=== PATIENT | male | born 1955 | race Caucasian/White ===

== ENCOUNTER → 2018-02-16 | Outpatient (CLI) | payer OTHER ==
[~2018-02-16] MED LIST: AGM875T PO; AMLO5TAB7 PO; ASPI-983 PO; CLOP75TA28 PO; FLT05NA16 NSEACH; LISI-552 PO; MECL-124 PO; METF750T2 PO; METO-370 PO; SIMV20TA3 PO; metformin; pravastatin
== END ==
LOC: CARD 08:33
PROVIDERS: ATTEND Internal Medicine Cardiovascular Disease
DX: R07.89 Other chest pain (principal); I10 Essential (primary) hypertension; E78.5 Hyperlipidemia, unspecified; Z72.0 Tobacco use
CPT/HCPCS: 93306

== ENCOUNTER → 2018-02-17 | Outpatient (CLI) | payer OTHER ==
[~2018-02-17] MED LIST changes: +CATHETER FLUSH 10 ML SYR IV PRN; +REGADENOSON 0.4 MG/5 ML SYR (LEXISCAN) IV ONE
[2018-02-17 13:27] VITALS: BP 160/72
[2018-02-17 13:44] VITALS: BP 156/79
--- NOTE | 2018-02-17 19:09 | STRESS TEST ---
DATE OF SERVICE: 02/17/2018 LEXISCAN MYOVIEW STRESS TEST REPORT Baseline heart rate is 65, baseline blood pressure 145/73. Baseline EKG is sinus rhythm with no ischemic changes. In summary, the patient was injected with 10.96 mCi of technetium-99 Myoview and the resting images were obtained. Then, the patient started exercising with a baseline heart rate, blood pressure and EKG mentioned above. The patient exercised for 5 minutes and 30 seconds on standard Jacques protocol, did not reach his target heart rate. With peak exercise level, EKG was showing nondiagnostic changes, blood pressure was 173/75. During recovery, there were no EKG changes. The patient was converted to Lexiscan Myoview stress test, received 0.4 mg of Lexiscan followed by 30.6 mCi of technetium-99 Myoview. Throughout the test, there were no EKG changes. The resting and stress images were reviewed and compared in the short axis, horizontal long axis, and vertical long axis views. Review of the images showed reversible ischemia involving the whole inferior wall, inferolateral wall and inferoseptum. SSS is 13, SDS 11, TID value 1.02. On the gated images, the left ventricle appeared to be in normal size with normal contractility. Calculated ejection fraction 55%. CONCLUSION: 1. The patient was unable to exercise beyond 5 minutes and 30 seconds on Jacques protocol, did not achieve his target heart rate. Test was converted to Lexiscan Myoview stress test. 2. Minimal nondiagnostic EKG changes with exercise returned to baseline during recovery. 3. Diaphragmatic attenuation with reversible ischemia involving the whole inferior wall, inferolateral wall and inferoseptum. 4. Normal left ventricular size with normal contractility. Calculated ejection fraction 55%. Job ID: [id number] DocumentID: [id number] Dictated Date: 02/17/2018 15:51:51 Aeronautical Drafter Date: 02/17/2018 19:09:08 Dictated By: SHIVA BOYLE MD
== END ==
LOC: CARD 11:41
PROVIDERS: ATTEND Internal Medicine Cardiovascular Disease
DX: R07.9 Chest pain, unspecified (principal)
CPT/HCPCS: 78452; 93017

== ENCOUNTER 2018-03-03 06:36 | Day surgery (SDC) | payer OTHER ==
[~2018-03-03] VITALS: Ht 185.4 cm; Wt 108.9 kg
[~2018-03-03 06:36] MED LIST changes: -AMLO5TAB7 PO; -ASPI-983 PO; -CATHETER FLUSH 10 ML SYR IV PRN; -CLOP75TA28 PO; -LISI-552 PO; -METF750T2 PO; -METO-370 PO; -REGADENOSON 0.4 MG/5 ML SYR (LEXISCAN) IV ONE; -SIMV20TA3 PO
--- OUTSIDE RECORDS SUMMARY | 2018-03-03 06:41 | XMS REPORT ---
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 Active [id number] Problem HTN (hypertension) I10 Active 52550693 ALLERGIES No Information ENCOUNTERS Encounter Location Date Diagnosis [facility] [id number] [place] [address] 44570- 3548 Apr, [facility] [id number] [place] [address] 29584- 8515 Jan, Chest discomfort R07.89 ; HTN (hypertension) I10 ; Hyperlipidemia, unspecified hyperlipidemia type E78.5 and Tobacco use Z72.0 [facility] [id number] [place] [address] 40411- 2922 Jan, [facility] [id number] [place] [address] 68527- 5264 Nov, Hypercholesteremia E78.0 [facility] [id number] [place] [address] 92140 -4049 Nov, Chest discomfort R07.89 and Sinus congestion R09.81 [facility] [id number] [place] [address] 71806- 5819 Nov, 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 [facility] [address] [address]- 2684 Jun, 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 ; HTN (hypertension) I10 ; Depression, unspecified depression type F32.9 and Hypercholesteremia E78.0 [place] [address], [place] [address] 6[address] Mar, Recurrent major depressive disorder, in partial remission F33.41 ; Hypercholesteremia E78.0 ; Insomnia G47.00 ; HTN (hypertension) I10 and 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 [place] [address] [place] [address] 35214- 4578 Feb, HTN (hypertension) I10 and 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 [place] [id number] [place] [address] 99066- 9438 Jan, Hypercholesteremia E78.0 ; 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 and HTN (hypertension) I10 [place] [address] [place] [address] 23527- 5590 Jan, [place] [id number] [place] [address] 25985- 6429 October, 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 ; HTN (hypertension) I10 ; Hypercholesteremia E78.0 and Insomnia G47.00 [place] [address] [address]- 6338 Sep, [place] [id number] [place] [address] 76186- 1980 Jun, 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 ; HTN (hypertension) I10 ; Insomnia G47.00 ; Hypercholesteremia E78.0 and Depression, unspecified depression type F32.9 [place] [address] [address]- 7867 Apr, [place] [id number] [place] [address] 34106- 0330 Dec, 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 [place] [id number] [place] [address] 01209- 6037 Dec, [facility] [id number] [place] [address] 80258- 6701 Dec, 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 ; HTN (hypertension) I10 ; Insomnia G47.00 ; Hypercholesteremia E78.0 and Depression, unspecified depression type F32.9 [place] [id number] [place] [address] 85146- 4328 Sep, Sinusitis J32.9 [place] [id number] [place] [address] 45919- 2674 Aug, [place] [id number] [place] [address] 47537- 4636 May, [place] [id number] [place] [address] 28492- 1065 May, [place] [id number] [place] [address] 13745- 7102 May, HTN (hypertension) I10 ; Insomnia G47.00 ; 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 and Hypercholesteremia E78.0 [place] [id number] [place] [address] 15651- 3609 Apr, [place] [id number] [place] [address] 34568- 2266 Dec, Diabetes mellitus without mention of complication, type II or unspecified type, not stated as uncontrolled 250.00 ; Essential hypertension , benign 401.1 ; Insomnia, unspecified 780.52 and Leg pain 729.5 [place] [address] [place] [address] 34257- 8413 Sep, [place] [id number] [place] [address] 66046- 9827 Sep, [facility] [place] [facility] [address] [id number] [place] [address]- 0365 Jul, [facility] [place] [facility] [address] [id number] [place] [address]- 0446 Jul, [facility] [place] [facility] [address] [facility] [id number] [place] [address]- 0936 Jul, [facility] [place] [facility] [address] [id number] [place] [address]- 2948 Jul, [facility] [place] [facility] [address] [id number] [place] [address]- 9483 Jun, [facility] [place] [facility] [address] [id number] [place] [address]- 6168 Jun, [facility] [place] [facility] [address] [id number] [place] [address]- 6470 Jun, [facility] [place] [facility] [address] [id number] [place] [address]- 7182 Jun, [facility] [place] [facility] [address] [id number] [place] [address]- 9293 May, [facility] [place] [facility] [address] [id number] [place] [address]- 7853 May, [facility] [place] [facility] [address] [facility] [id number] [place] [address]- 1509 May, [facility] [place] [facility] [address] [id number] [place] [address]- 1219 May, [facility] [place] [facility] [address] [id number] [place] [address]- 1831 Apr, [facility] [place] [facility] [address] [facility] [id number] [place] [address]- 0687 Apr, [facility] [place] [facility] [address] [facility] [id number] [place] [address]- 3804 Mar, [facility] [place] [facility] [address] [id number] [place] [address]- 9885 Mar, [facility] [place] [facility] [address] [id number] [place] [address]- 2323 Mar, [facility] [place] [facility] [address] [id number] [place] [address]- 8049 Mar, [facility] [place] [facility] [address] [id number] [place] [address]- 3571 Feb, [facility] [place] [facility] [address] [id number] [place] [address]- 5932 Feb, [facility] [place] [facility] [address] [id number] [place] [address]- 1425 Jan, [facility] [place] [facility] [address] [id number] [place] [address]- 3639 Jan, [facility] [place] [facility] [address] [id number] [place] [address]- 3648 Jan, [facility] [place] [facility] [address] [id number] [place] [address]- 6223 Jan, [facility] [place] [facility] [address] [id number] [place] [address]- 7183 Dec, [facility] [place] [facility] [address] [id number] [place] [address]- 3571 Dec, [facility] [place] [facility] [address] [id number] [place] [address]- 2173 Dec, [facility] [place] [facility] [address] [id number] [place] [address]- 0881 Dec, [facility] [place] [facility] [address] [id number] [place] [address]- 0769 Dec, [facility] [place] [facility] [address] [id number] [place] [address]- 5327 Dec, [facility] [place] [facility] [address] [id number] [place] [address]- 8647 Dec, [facility] [place] [facility] [address] [id number] [place] [address]- 6072 Dec, [facility] [place] [facility] [address] [id number] [place] [address]- 9187 Nov, [facility] [place] [facility] [address] [id number] [place] [address]- 4910 Nov, [facility] [place] [facility] [address] [id number] [place] [address]- 9950 Nov, [facility] [place] [facility] [address] [id number] [place] [address]- 3856 Nov, [facility] [place] [facility] [address] [id number] [place] [address]- 2328 Sep, [facility] [place] [facility] [address] [facility] [id number] [place] [address]- 5451 Sep, [facility] [place] [facility] [address] [id number] [place] [address]- 9389 Jul, [facility] [place] [facility] [address] [id number] [place] [address]- 1021 Jul, [facility] [place] [facility] [address] [facility] [id number] [place] [address]- 4789 Jul, [facility] [place] [facility] [address] [id number] [place] [address]- 2878 Jul, [facility] [place] [facility] [address] [id number] [address]- 8086 Jul, [facility] [place] [facility] [address] [id number] [place] 2415 Jul, [facility] [place] [facility] [address] [id number] [place] 0416 Jul, [facility] [place] [facility] [address] [facility] [id number] [place] [address]- 1433 Jul, [facility] [place] [facility] [id number] [address]- 3336 Jul, [facility] [id number] [address]- 0446 Jul, [facility] [address], [place] [address]- 5903 Jun, [facility] [id number] [address]- 7636 Jun, [facility] [address], [place] [address]- 1479 Jun, [facility] [address], [place] [address]- 6990 Jun, [facility] [address], [place] [address]- 1465 Mar, [facility] [id number] [address]- 1597 Mar, IMMUNIZATIONS No Known Immunizations SOCIAL HISTORY Never Assessed REASON FOR VISIT Lab (walk-in) PLAN OF CARE VITAL SIGNS MEDICATIONS Unknown Medications RESULTS No Results PROCEDURES Procedure Date Ordered Result Body Site LIPID PANEL December 07, 2017 COMPREHEN METABOLIC PANEL December 07, 2017 INSTRUCTIONS MEDICATIONS ADMINISTERED No Known Medications MEDICAL (GENERAL) HISTORY Type Description Date Medical History hypertension Medical History pre-diabetic Medical History hyperlipidemia Hospitalization History pneumonia age 20
--- OUTSIDE RECORDS SUMMARY | 2018-03-03 06:41 | XMS REPORT ---
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 Active 20874260325488 Problem HTN (hypertension) I10 Active 71968707 ALLERGIES No Information ENCOUNTERS Encounter Location Date Diagnosis [facility] [id number] [place] [address] 99591- 6690 Apr, [facility] [id number] [place] [address] 37072- 2243 Jan, Chest discomfort R07.89 ; HTN (hypertension) I10 ; Hyperlipidemia, unspecified hyperlipidemia type E78.5 and Tobacco use Z72.0 [facility] [id number] [place] [address] 18641- 6731 Jan, [facility] [id number] [place] [address] 83267- 2084 Nov, Hypercholesteremia E78.0 [facility] [id number] [place] [address] 72826 -8553 Nov, Chest discomfort R07.89 and Sinus congestion R09.81 [facility] [id number] [place] [address] 14193- 2450 Nov, 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 [facility] [address] 53410- 0583 Jun, 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 ; HTN (hypertension) I10 ; Depression, unspecified depression type F32.9 and Hypercholesteremia E78.0 [place] [address], [place] [address]- 9136 Mar, Recurrent major depressive disorder, in partial remission F33.41 ; Hypercholesteremia E78.0 ; Insomnia G47.00 ; HTN (hypertension) I10 and 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 [place] [address] [place] [address] 08995- 8548 Feb, HTN (hypertension) I10 and 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 [place] [id number] [place] [address] 96138- 1918 Jan, Hypercholesteremia E78.0 ; 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 and HTN (hypertension) I10 [place] [address] [place] [address] 65653- 3707 Jan, [place] [id number] [place] [address] 38426- 1767 October, 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 ; HTN (hypertension) I10 ; Hypercholesteremia E78.0 and Insomnia G47.00 [place] [address], [place] [address]- 5587 Sep, [place] [id number] [place] [address] 28618- 0795 Jun, 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 ; HTN (hypertension) I10 ; Insomnia G47.00 ; Hypercholesteremia E78.0 and Depression, unspecified depression type F32.9 [place] [address], [place] [address]- 1927 Apr, [place] [id number] [place] [address] 55432- 1691 Dec, 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 [place] [id number] [place] [address] 37657- 7634 Dec, [facility] [id number] [place] [address] 33223- 9315 Dec, 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 ; HTN (hypertension) I10 ; Insomnia G47.00 ; Hypercholesteremia E78.0 and Depression, unspecified depression type F32.9 [place] [id number] [place] [address] 06418- 3827 Sep, Sinusitis J32.9 [place] [id number] [place] [address] 10946- 5710 Aug, [place] [id number] [place] [address] 79136- 2108 May, [place] [id number] [place] [address] 15722- 2467 May, [place] [id number] [place] [address] 68426- 4919 May, HTN (hypertension) I10 ; Insomnia G47.00 ; 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 and Hypercholesteremia E78.0 [place] [id number] [place] [address] 97179- 8553 Apr, [place] [id number] [place] [address] 69916- 3800 Dec, Diabetes mellitus without mention of complication, type II or unspecified type, not stated as uncontrolled 250.00 ; Essential hypertension , benign 401.1 ; Insomnia, unspecified 780.52 and Leg pain 729.5 [place] [address] [place] [address] 86168- 0860 Sep, [place] [id number] [place] [address] 35320- 9586 Sep, [facility] [place] [facility] [address] [id number] [place] [address]- 1623 Jul, [facility] [place] [facility] [address] [id number] [place] [address]- 1256 Jul, [facility] [place] [facility] [address] [facility] [id number] [place] [address]- 4716 Jul, [facility] [place] [facility] [address] [id number] [place] [address]- 5988 Jul, [facility] [place] [facility] [address] [id number] [place] [address]- 1561 Jun, [facility] [place] [facility] [address] [id number] [place] [address]- 2157 Jun, [facility] [place] [facility] [address] [id number] [place] [address]- 8253 Jun, [facility] [place] [facility] [address] [id number] [place] [address]- 4938 Jun, [facility] [place] [facility] [address] [id number] [place] [address]- 7722 May, [facility] [place] [facility] [address] [id number] [place] [address]- 0970 May, [facility] [place] [facility] [address] [facility] [id number] [place] [address]- 2676 May, [facility] [place] [facility] [address] [id number] [place] [address]- 1376 May, [facility] [place] [facility] [address] [id number] [place] [address]- 3113 Apr, [facility] [place] [facility] [address] [facility] [id number] [place] [address]- 5025 Apr, [facility] [place] [facility] [address] [facility] [id number] [place] [address]- 9288 Mar, [facility] [place] [facility] [address] [id number] [place] [address]- 7976 Mar, [facility] [place] [facility] [address] [id number] [place] [address]- 4012 Mar, [facility] [place] [facility] [address] [id number] [place] [address]- 5136 Mar, [facility] [place] [facility] [address] [id number] [place] [address]- 9232 Feb, [facility] [place] [facility] [address] [id number] [place] [address]- 4529 Feb, [facility] [place] [facility] [address] [id number] [place] [address]- 0750 Jan, [facility] [place] [facility] [address] [id number] [place] [address]- 9056 Jan, [facility] [place] [facility] [address] [id number] [place] [address]- 1556 Jan, [facility] [place] [facility] [address] [id number] [place] [address]- 0411 Jan, [facility] [place] [facility] [address] [id number] [place] [address]- 8147 Dec, [facility] [place] [facility] [address] [id number] [place] [address]- 7445 Dec, [facility] [place] [facility] [address] [id number] [place] [address]- 6619 Dec, [facility] [place] [facility] [address] [id number] [place] [address]- 9715 Dec, [facility] [place] [facility] [address] [id number] [place] [address]- 4526 Dec, [facility] [place] [facility] [address] [id number] [place] [address]- 5228 Dec, [facility] [place] [facility] [address] [id number] [place] [address]- 1965 Dec, [facility] [place] [facility] [address] [id number] [place] [address]- 4185 Dec, [facility] [place] [facility] [address] [id number] [place] [address]- 2109 Nov, [facility] [place] [facility] [address] [id number] [place] [address]- 8681 Nov, [facility] [place] [facility] [address] [id number] [place] [address]- 6385 Nov, [facility] [place] [facility] [address] [id number] [place] [address]- 9561 Nov, [facility] [place] [facility] [address] [id number] [place] [address]- 7276 Sep, [facility] [place] [facility] [address] [facility] [id number] [place] [address]- 6723 Sep, [facility] [place] [facility] [address] [id number] [place] [address]- 3463 Jul, [facility] [place] [facility] [address] [id number] [place] [address]- 2682 Jul, [facility] [place] [facility] [address] [facility] [id number] [place] [address] Jul, [facility] [place] [facility] [address] [id number] [place] [address] Jul, [facility] [place] [facility] [address] [id number] [address] Jul, [facility] [place] [facility] [address] [id number] [place] [address] Jul, [facility] [place] [facility] [address] [id number] [place] [address] Jul, [facility] [place] [facility] [address] [facility] [id number] [place] [address] Jul, [facility] [place] [facility] [address] [id number] [address] Jul, [facility] [address] [id number] [address] Jul, [facility] [id number] [address] Jun, [facility] [id number], [place] [address] Jun, [facility] [id number], [place] [address] Jun, [facility] [id number], [place] [address] Jun, [facility] [id number], [place] [address] Mar, [facility] [id number], [place] [address] Mar, IMMUNIZATIONS No Known Immunizations SOCIAL HISTORY Never Assessed REASON FOR VISIT Repository Medication PLAN OF CARE VITAL SIGNS MEDICATIONS Medication Instructions Dosage Frequency Start Date End Date Duration Status Amlodipine Besylate 5 mg Orally Once a day 1 tablet 24h Jun, Active RESULTS No Results PROCEDURES No Known procedures INSTRUCTIONS MEDICATIONS ADMINISTERED No Known Medications MEDICAL (GENERAL) HISTORY Type Description Date Medical History hypertension Medical History pre-diabetic Medical History hyperlipidemia Hospitalization History pneumonia age 20
--- OUTSIDE RECORDS SUMMARY | 2018-03-03 06:42 | XMS REPORT ---
Author Author RAVINDRA CHAUHAN Organization [employer] Address Unknown Phone Unavailable Care Team Providers Care Medical Administrative Technician Name Role Phone RAVINDRA CHAUHAN Unavailable Allergies No Known Allergies Problems Problem Type Condition Code Onset Dates Condition Status Problem Pain in joint, site unspecified 719.40 Active Problem Lumbago 724.2 Active Problem Insomnia, unspecified 780.52 Active Problem Dizziness and giddiness 780.4 Active Problem Acute sinusitis, unspecified 461.9 Active Problem Leg pain 729.5 Active Problem Essential hypertension, benign 401.1 Active Problem Other and unspecified hyperlipidemia 272.4 Active Problem Pain in joint, ankle and foot 719.47 Active Problem Diabetes mellitus without mention of complication, type II or unspecified type, not stated as uncontrolled 250.00 Active Medications Medication Code System Code Instructions Start Date End Date Status Dosage Lisinopril [facility] [address]-80 20 MG Orally Once a day 1 tablet Metformin HCl [facility] [address]-33 500 MG Orally Once a day Apr 17, 2015 1 tablet with meals Results No Known Results Summary Purpose eClinicalWorks Submission
--- OUTSIDE RECORDS SUMMARY | 2018-03-03 06:42 | XMS REPORT ---
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 Active 68976542816971 Problem HTN (hypertension) I10 Active 15449557 Problem Hypercholesteremia E78.0 Active 564610910 ALLERGIES No Information ENCOUNTERS Encounter Location Date Diagnosis [facility] [address] [address] Jan, [facility] [id number] [place] [address] Jan, [facility] [address] [address] Nov, Hypercholesteremia E78.0 [facility] [id number] [place] [address] Nov, Chest discomfort R07.89 and Sinus congestion R09.81 [facility] [id number] [place] [address] Nov, 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 [facility] [address] [address] Jun, 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 ; HTN (hypertension) I10 ; Depression, unspecified depression type F32.9 and Hypercholesteremia E78.0 [facility] [address] [address] Mar, Recurrent major depressive disorder, in partial remission F33.41 ; Hypercholesteremia E78.0 ; Insomnia G47.00 ; HTN (hypertension) I10 and 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 [facility] [id number] [place] [address] Feb, HTN (hypertension) I10 and 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 [facility] [id number] [place] [address] 6[address] Jan, Hypercholesteremia E78.0 ; 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 and HTN (hypertension) I10 [facility] [id number] [place] [address]- [address] Jan, [facility] [id number] [place] [address] October, 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 ; HTN (hypertension) I10 ; Hypercholesteremia E78.0 and Insomnia G47.00 [facility] [id number] [place] [address]- [address] Sep, [facility] [id number] [place] [address]- 1426 Jun, 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 ; HTN (hypertension) I10 ; Insomnia G47.00 ; Hypercholesteremia E78.0 and Depression, unspecified depression type F32.9 [facility] [id number] [place] [address]- [address] Apr, [facility] [id number] [place] [address]- 8[address] Dec, 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 [facility] [id number] [place] [address]- 18[address] Dec, [facility] [id number] [place] [address]- [address] Dec, 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 ; HTN (hypertension) I10 ; Insomnia G47.00 ; Hypercholesteremia E78.0 and Depression, unspecified depression type F32.9 [facility] [id number] [place] [address]- 4431 Sep, Sinusitis J32.9 [facility] [address] [address] Aug, [facility] [id number] [place] [address]- [address] May, [place] [facility] [address] [address] May, [facility] [address] [address] May, HTN (hypertension) I10 ; Insomnia G47.00 ; 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 and Hypercholesteremia E78.0 [facility] [id number] [place] [address]- [address] Apr, [facility] [address] [address] Dec, Diabetes mellitus without mention of complication, type II or unspecified type, not stated as uncontrolled 250.00 ; Essential hypertension , benign 401.1 ; Insomnia, unspecified 780.52 and Leg pain 729.5 [facility] [id number] [place] [address]43- [address] Sep, [facility] [id number] [place] [address] 264[address]- [address] Sep, [facility] [id number] [place] [address] 13698- 5[address] Jul, [facility] [id number] [place] [address] 590[address]- [address]99 Jul, [facility] [address] [facility] [id number] [place] [address] 10 Jul, 2014 [facility] [place] [facility] [address] [id number] [place] [address] Jul, 2014 [facility] [place] [facility] [address] [id number] [place] [address]- [address] Jun, [facility] [place] [facility] [address] [id number] [place] [address]- [address] Jun, [facility] [place] [facility] [address] [id number] [place] [address]- 1589 Jun, [facility] [place] [facility] [address] [id number] [place] [address]- 74[address] Jun, [facility] [place] [facility] [address] [id number] [place] [address]- 3479 May, [facility] [place] [facility] [address] [id number] [place] [address]- 8458 May, [facility] [place] [facility] [address] [id number] [place] [address]- 49[address] May, [facility] [place] [facility] [address] [id number] [place] [address]- [address] May, [facility] [place] [facility] [address] [id number] [place] [address]- 5[address] Apr, [facility] [place] [facility] [address] [id number] [place] [address]- 2436 Apr, [facility] [place] [facility] [address] [id number] [place] [address]- 11[address] Mar, [facility] [place] [facility] [address] [id number] [place] [address]- 2869 Mar, [facility] [place] [facility] [address] [id number] [place] [address]- 0592 Mar, [facility] [place] [facility] [address] [id number] [place] [address]- 8563 Mar, [facility] [place] [facility] [address] [id number] [place] [address]- 0890 Feb, [facility] [place] [facility] [address] [id number] [place] [address]- 5240 Feb, [facility] [place] [facility] [address] [id number] [place] [address]- 6478 Jan, [facility] [place] [facility] [address] [id number] [place] [address]- 6661 Jan, [facility] [place] [facility] [address] [id number] [place] [address]- 8086 Jan, [facility] [place] [facility] [address] [id number] [place] [address]- 2970 Jan, [facility] [place] [facility] [address] [id number] [place] [address]- 8099 Dec, [facility] [place] [facility] [address] [id number] [place] [address]- 3893 Dec, [facility] [place] [facility] [address] [id number] [place] [address]- 2887 Dec, [facility] [place] [facility] [address] [id number] [place] [address]- 7852 Dec, [facility] [place] [facility] [address] [id number] [place] [address]- 1696 Dec, [facility] [place] [facility] [address] [id number] [place] [address]- 4268 Dec, [facility] [place] [facility] [address] [id number] [place] [address]- 5601 Dec, [facility] [place] [facility] [address] [id number] [place] [address]- 8086 Dec, [facility] [place] [facility] [address] [id number] [place] [address]- 7377 Nov, [facility] [place] [facility] [address] [id number] [place] [address]- 7770 Nov, [facility] [place] [facility] [address] [id number] [place] [address]- 5499 Nov, [facility] [place] [facility] [address] [id number] [place] [address]- 8762 Nov, [facility] [place] [facility] [address] [id number] [place] [address]- 0397 Sep, [facility] [place] [facility] [address] [id number] [place] [address]- 7039 Sep, [facility] [place] [facility] [address] [id number] [place] [address]- 4393 Jul, [facility] [place] [facility] [address] [facility] [id number] [place] [address]- 4749 Jul, [facility] [place] [facility] [address] [facility] [id number] [place] [address]- 4459 Jul, [facility] [place] [facility] [address] [facility] [id number] [place] [address]- 0[address] Jul, [facility] [place] [facility] [address] [facility] [id number] [place] [address]- 9827 Jul, [facility] [place] [facility] [address] [facility] [id number] [place] [address]- 6460 Jul, [facility] [place] [facility] [address] [facility] [id number] [place] [address]- 3181 Jul, [facility] [place] [facility] [address] [facility] [id number] [place] [address]- 7067 Jul, [facility] [place] [facility] [address] [id number] [place] [address]- 9550 Jul, [facility] [place] [facility] [address] [facility] [id number] [place] [address]- 1221 Jul, [facility] [place] [facility] [address] [facility] [id number] [place] [address]- 1897 Jun, [facility] [address] [facility] [id number] [place] [address]- 9727 Jun, [facility] [id number] [place] [address]- 2266 Jun, [facility] [address] [facility] [id number] [place] [address]- 0216 Jun, [facility] [address] [facility] [id number] [place] [address]- 8366 Mar, [facility] [address] [facility] [id number] [place] [address]- [address] Mar, IMMUNIZATIONS No Known Immunizations SOCIAL HISTORY Never Assessed REASON FOR VISIT Repository Medication PLAN OF CARE VITAL SIGNS MEDICATIONS Medication Instructions Dosage Frequency Start Date End Date Duration Status MetFORMIN HCl ER 750 MG Orally Once a day 1 tablet with evening meal 24h Mar, 90 days Active RESULTS No Results PROCEDURES No Known procedures INSTRUCTIONS MEDICATIONS ADMINISTERED No Known Medications MEDICAL (GENERAL) HISTORY Type Description Date Medical History hypertension Medical History pre-diabetic Medical History hyperlipidemia Hospitalization History pneumonia age 20
--- OUTSIDE RECORDS SUMMARY | 2018-03-03 06:42 | XMS REPORT ---
Author RAVINDRA [facility]seca [facility] eClinicalWorks Address Unknown Phone Unavailable Care Team Providers Care Alarm Signal Operator Name Role Phone RAVINDRA CHAUHAN CP Unavailable Allergies, Adverse Reactions, Alerts Substance Reaction Event Type N.K.D.A. 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 Active Assessment HTN (hypertension) I10 Active Problem Insomnia G47.00 Active Problem Hypercholesteremia E78.0 Active Medications Medication Code System Code Instructions Start Date End Date Status Dosage Simvastatin [facility] [address]-96 20 mg Orally Once a day 1 tablet in the evening Amlodipine Besylate [facility] [address]-10 5 mg Orally, please voucher Once a day 1 tablet Metformin HCl [facility] 05470813794 500 MG Orally Once a day 1 tablet with meals Simvastatin [facility] [address]-65 10 MG Orally Once a day 1 tablet in the evening Lisinopril [facility] [address]-90 20 mg Orally Once a day 1 tablet Ambien [facility] [address]-12 10 MG Orally Once a day May 17, 2015 1 tablet at bedtime as needed Procedures Procedure Coding System Code Date GLYCATED HEMOGLOBIN TEST CPT-4 84269 December 27, 2015 Office Visit, Est Pt., Level 4 CPT-4 52459 December 27, 2015 Vital Signs Date/Time: December 27, 2015 Blood Pressure Systolic 146 mmHg Cardiac Monitoring Heart Rate 82 bpm Height 73 in Blood Pressure Diastolic 80 mmHg Results No Known Results Summary Purpose eClinicalWorks Submission
--- OUTSIDE RECORDS SUMMARY | 2018-03-03 06:42 | XMS REPORT ---
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 Active 80749197526685 Problem HTN (hypertension) I10 Active 19237954 ALLERGIES No Known Allergies SOCIAL HISTORY Never Assessed PLAN OF CARE Activity Details Follow Up 3 Months Reason:dm htn, insomnia VITAL SIGNS Height 73 in 2016-10-20 Weight 223 lbs 2016-10-20 Temperature 98.1 degrees Fahrenheit 2016-10-20 Heart Rate 64 bpm 2016-10-20 Respiratory Rate 18 2016-10-20 BMI 29.42 kg/m2 2016-10-20 Blood pressure systolic 150 mmHg 2016-10-20 Blood pressure diastolic 80 mmHg 2016-10-20 MEDICATIONS Medication Instructions Dosage Frequency Start Date End Date Duration Status Metformin HCl 500 MG Orally Once a day 1 tablet with meals 24h Active Lotrel 5-20 MG as directed October, Active Simvastatin 20 mg Orally Once a day 1 tablet in the evening 24h Active Seroquel 50 mg Orally Once a day 1 tablet 24h October, 30 day(s) Active Amlodipine Besylate 5 mg Orally Once a day TAKE ONE TABLET BY MOUTH ONCE DAILY 24h 30 Active Lisinopril 20 mg Orally Once a day 1 tablet 24h 90 days Active RESULTS Name Result Date Reference Range A1C (IN HOUSE) 2016-10-20 A1C IN HOUSE 6.0 4.3 - 5.6 % Previous A1c 6.6 Lot [id number] Exp date 06/2018 PROCEDURES Procedure Date Ordered Result Body Site GLYCATED HEMOGLOBIN TEST October 20, 2016 IMMUNIZATIONS No Known Immunizations MEDICAL (GENERAL) HISTORY Type Description Date Medical History hypertension Medical History pre-diabetic Medical History hyperlipidemia Hospitalization History pneumonia age 20
--- OUTSIDE RECORDS SUMMARY | 2018-03-03 06:42 | XMS REPORT ---
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 Active 74681912690316 Problem HTN (hypertension) I10 Active 06886370 Problem Hypercholesteremia E78.0 Active 167120515 ALLERGIES No Known Allergies ENCOUNTERS Encounter Location Date Diagnosis [place] [id number] [place] [id number] [place] [address] 04059- 0008 Nov, 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 [facility] [id number] [place] [address] 28164- 5452 Jun, 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 ; HTN (hypertension) I10 ; Depression, unspecified depression type F32.9 and Hypercholesteremia E78.0 [place] [id number] [place] [address] 53143- 7212 Mar, Recurrent major depressive disorder, in partial remission F33.41 ; Hypercholesteremia E78.0 ; Insomnia G47.00 ; HTN (hypertension) I10 and 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 [place] [id number] [place] [address] 14497- 6166 Feb, HTN (hypertension) I10 and 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 [place] [address] [place] [address] 98961- 3746 Jan, Hypercholesteremia E78.0 ; 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 and HTN (hypertension) I10 [place] [id number] [place] [address] 02038- 2119 Jan, [place] [id number] [place] [address]93 October, 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 ; HTN (hypertension) I10 ; Hypercholesteremia E78.0 and Insomnia G47.00 [place] [id number] [place] [address] 26499- 2894 Sep, [place] [id number] [place] [address] 85776- 8469 Jun, 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 ; HTN (hypertension) I10 ; Insomnia G47.00 ; Hypercholesteremia E78.0 and Depression, unspecified depression type F32.9 [place] [id number] [place] [address] 96029- 5494 Apr, [place] [id number] [place] [address] 64093- 8948 Dec, 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 [place] [id number] [place] [address] 08052- 6632 Dec, [place] [id number] [place] [address] 34806- 1634 Dec, 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 ; HTN (hypertension) I10 ; Insomnia G47.00 ; Hypercholesteremia E78.0 and Depression, unspecified depression type F32.9 [place] [id number] [place] [address] 82813- 1492 05 Sep, 2015 Sinusitis J32.9 [facility] [id number] [place] [address] 36648- 7342 Aug, [facility] [id number] [place] [address] 80953- 4256 May, [facility] [id number] [place] [address] 083346- 6120 May, [facility] [id number] [place] [address] 37037- 5196 May, HTN (hypertension) I10 ; Insomnia G47.00 ; 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 and Hypercholesteremia E78.0 [facility] [id number] [place] [address] 223949- 2485 Apr, [facility] [id number] [place] [address] 62781- 4704 Dec, Diabetes mellitus without mention of complication, type II or unspecified type, not stated as uncontrolled 250.00 ; Essential hypertension , benign 401.1 ; Insomnia, unspecified 780.52 and Leg pain 729.5 [facility] [id number] [place] [address] 55864- 0914 Sep, [facility] [id number] [place] [address] 44797- 7935 Sep, [facility] [id number] [place] [address] 72257- 8652 Jul, [facility] [id number] [place] [address] 78762- 7229 Jul, [facility] [id number] [place] [address] 91890- 3861 Jul, [facility] [id number] [place] [address] 674269- 2423 Jul, [facility] [id number] [place] [address] 218943- 4522 Jun, [facility] [id number] [place] [address] 85821- 3576 Jun, [facility] [id number] [place] [address] 118615- 5545 Jun, [facility] [place] [facility] [address] [id number] [place] [address]- 8613 Jun, [facility] [place] [facility] [address] [id number] [place] [address]- 7397 May, [facility] [place] [facility] [address] [id number] [place] [address]- 6813 May, [facility] [place] [facility] [address] [id number] [place] [address]- 9764 May, [facility] [place] [facility] [address] [id number] [place] [address]- 7289 May, [facility] [place] [facility] [address] [id number] [place] [address]- 8180 Apr, [facility] [place] [facility] [address] [id number] [place] [address]- 7189 Apr, [facility] [place] [facility] [address] [id number] [place] [address]- 0671 Mar, [facility] [place] [facility] [address] [id number] [place] [address]- 6187 Mar, [facility] [place] [facility] [address] [id number] [place] [address]- 6142 Mar, [facility] [place] [facility] [address] [id number] [place] [address]- 9332 Mar, [facility] [place] [facility] [address] [id number] [place] [address]- 9062 Feb, [facility] [place] [facility] [address] [id number] [place] [address]- 4055 Feb, [facility] [place] [facility] [address] [id number] [place] [address]- 2678 Jan, [facility] [place] [facility] [address] [id number] [place] 0842 Jan, [facility] [place] [facility] [address] [id number] [place] [address]- 6667 Jan, [facility] [place] [facility] [address] [id number] [place] [address]- 6550 Jan, [facility] [place] [facility] [address] [id number] [place] [address]- 6071 Dec, [facility] [place] [facility] [address] [id number] [place] [address]- 9788 Dec, [facility] [place] [facility] [address] [id number] [place] [address]- 3721 Dec, [facility] [place] [facility] [address] [id number] [place] [address]- 3830 Dec, [facility] [place] [facility] [address] [id number] [place] [address]- 9715 Dec, [facility] [place] [facility] [address] [id number] [place] [address]- 3706 Dec, [facility] [place] [facility] [address] [id number] [place] [address]- 2475 Dec, [facility] [place] [facility] [address] [id number] [place] [address]- 4765 Dec, [facility] [place] [facility] [address] [id number] [place] [address]- 6758 Nov, [facility] [place] [facility] [address] [id number] [place] [address]- 8221 Nov, [facility] [place] [facility] [address] [id number] [place] [address]- 8939 Nov, [facility] [place] [facility] [address] [id number] [place] [address]- 9175 Nov, [facility] [place] [facility] [address] [id number] [place] [address]- 0189 Sep, [facility] [place] [facility] [address] [id number] [place] [address]- 5841 Sep, [facility] [place] [facility] [address] [id number] [place] [address]- 3519 Jul, [facility] [place] [facility] [address] [id number] [place] [address]- 8946 Jul, [facility] [place] [facility] [address] [id number] [place] [address]- 7376 Jul, [facility] [place] [facility] [address] [id number] [place] [address]- 0323 Jul, [facility] [place] [facility] [address] [id number] [place] [address]- 7024 Jul, [facility] [place] [facility] [address] [id number] [place] [address]- 8279 Jul, [facility] [place] [facility] [address] [id number] [place] [address]- 9188 Jul, [facility] [place] [facility] [address] [id number] [place] [address]- 9400 Jul, [facility] [place] [facility] [address] [id number] [place] [address]- 2272 Jul, [facility] [place] [facility] [address] [id number] [place] [address]- 5477 Jul, [facility] [place] [facility] [address] [id number] [place] [address]- 0262 Jun, [facility] [place] [facility] [address] [id number] [place] [address]- 5075 Jun, [facility] [place] [facility] [address] [id number] [place] [address]- 7774 Jun, [facility] [place] [facility] [address] [id number] [place] [address]- 6435 Jun, [facility] [place] [facility] [address] [id number] [place] [address]- 4244 Mar, [facility] [place] [facility] [address] [facility] [id number] [place] [address]- 8866 Mar, IMMUNIZATIONS No Known Immunizations SOCIAL HISTORY Never Assessed REASON FOR VISIT Transition of Care- Was charley Murillo RN PLAN OF CARE Activity Details Follow Up 6 Months Reason: VITAL SIGNS Height 73 in 2017-06-23 Weight 230 lbs 2017-06-23 Temperature 97.9 degrees Fahrenheit 2017-06-23 Heart Rate 78 bpm 2017-06-23 Respiratory Rate 16 2017-06-23 BMI 30.34 kg/m2 2017-06-23 Blood pressure systolic 150 mmHg 2017-06-23 Blood pressure diastolic 78 mmHg 2017-06-23 MEDICATIONS Medication Instructions Dosage Frequency Start Date End Date Duration Status Simvastatin 20 mg Orally Once a day 1 tablet in the evening 24h Active Amlodipine Besylate 5 mg Orally Once a day 1 tablet 24h Jun, Active MetFORMIN HCl ER 750 MG Orally Once a day 1 tablet with evening meal 24h Mar, 90 days Active RESULTS Name Result Date Reference Range A1C (IN HOUSE) 2017-06-23 A1C IN HOUSE 5.7 4.3 - 5.6 % Previous A1c 6.2 Lot [id number] Exp date 03/2019 PROCEDURES Procedure Date Ordered Result Body Site GLYCATED HEMOGLOBIN TEST Jun 23, 2017 INSTRUCTIONS MEDICATIONS ADMINISTERED No Known Medications MEDICAL (GENERAL) HISTORY Type Description Date Medical History hypertension Medical History pre-diabetic Medical History hyperlipidemia Hospitalization History pneumonia age 20
--- OUTSIDE RECORDS SUMMARY | 2018-03-03 06:42 | XMS REPORT ---
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 Active 66312724794123 Problem HTN (hypertension) I10 Active 16561051 Problem Hypercholesteremia E78.0 Active 494648165 ALLERGIES No Information ENCOUNTERS Encounter Location Date Diagnosis [place] [address] [address]- 2205 Jun, 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 ; HTN (hypertension) I10 ; Depression, unspecified depression type F32.9 and Hypercholesteremia E78.0 [place] [address] 50778- 9441 Mar, Recurrent major depressive disorder, in partial remission F33.41 ; Hypercholesteremia E78.0 ; Insomnia G47.00 ; HTN (hypertension) I10 and 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 [facility] [address] [address] [id number] [place] [address] 82554- 5799 Feb, HTN (hypertension) I10 and 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 [place] [address] 32931- 6951 Jan, Hypercholesteremia E78.0 ; 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 and HTN (hypertension) I10 [place] [address] 68253- 0815 Jan, [facility] [address] [place] [address] [id number] [place] [address] 70160- 1051 October, 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 ; HTN (hypertension) I10 ; Hypercholesteremia E78.0 and Insomnia G47.00 [place] [id number] [place] [address] 04704- 5007 Sep, [place] [id number] [place] [address] 79967- 2085 Jun, 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 ; HTN (hypertension) I10 ; Insomnia G47.00 ; Hypercholesteremia E78.0 and Depression, unspecified depression type F32.9 [place] [id number] [place] [address] 55596- 0363 Apr, [place] [address] [id number] [place] [address] 66956- 6407 Dec, 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 [place] [id number] [place] [address] 94704- 5274 Dec, [place] [id number] [place] [address] 08447- 8946 Dec, 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 ; HTN (hypertension) I10 ; Insomnia G47.00 ; Hypercholesteremia E78.0 and Depression, unspecified depression type F32.9 [place] [id number] [place] [address] 29400- 0485 Sep, Sinusitis J32.9 [place] [id number] [place] [address] 14079- 8841 Aug, [place] [id number] [place] [address] 84560- 4381 May, [place] [id number] [place] [address] 74815- 2380 May, [facility] [id number] [place] [address] 879141- 9353 May, HTN (hypertension) I10 ; Insomnia G47.00 ; 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 and Hypercholesteremia E78.0 [facility] [id number] [place] [address] 305932- 2544 Apr, [facility] [address] 28060- 0090 Dec, Diabetes mellitus without mention of complication, type II or unspecified type, not stated as uncontrolled 250.00 ; Essential hypertension , benign 401.1 ; Insomnia, unspecified 780.52 and Leg pain 729.5 [facility] [address] [place] [address] [id number] [place] [address] 48989- 8790 Sep, [facility] [address] 54572- 2998 Sep, [facility] [id number] [place] [address] 08097- 3904 Jul, [facility] [id number] [place] [address] 97227- 0425 Jul, [facility] [id number] [place] [address] 85547- 8928 Jul, [facility] [id number] [place] [address] 44984- 9485 Jul, [facility] [id number] [place] [address] 300416- 7799 Jun, [facility] [id number] [place] [address] 656456- 4595 Jun, [facility] [id number] [place] [address] 787117- 1617 Jun, [facility] [id number] [place] [address] 019227- 5531 Jun, [facility] [place] [facility] [address] [id number] [place] [address]- 4687 May, [facility] [place] [facility] [address] [id number] [place] [address]- 4591 May, [facility] [place] [facility] [address] [id number] [place] [address]- 7289 May, [facility] [place] [facility] [address] [id number] [place] [address]- 6865 May, [facility] [place] [facility] [address] [id number] [place] [address]- 6054 Apr, [facility] [place] [facility] [address] [id number] [place] [address]- 9634 Apr, [facility] [place] [facility] [address] [id number] [place] [address]- 9611 Mar, [facility] [place] [facility] [address] [id number] [place] [address]- 6411 Mar, [facility] [place] [facility] [address] [id number] [place] [address]- 4227 Mar, [facility] [place] [facility] [address] [id number] [place] [address]- 6713 Mar, [facility] [place] [facility] [address] [id number] [place] [address]- 3821 Feb, [facility] [place] [facility] [address] [id number], [place] [address]- 6917 Feb, [facility] [place] [facility] [address] [id number] [place] [address]- 2892 Jan, [facility] [place] [facility] [address] [id number] [place] [address]- 8055 Jan, [facility] [place] [facility] [address] [id number] [place] [address]- 5479 Jan, [facility] [place] [facility] [address] [id number] [place] [address]- 2626 Jan, [facility] [place] [facility] [address] [id number] [place] [address]- 8656 Dec, [facility] [place] [facility] [address] [id number] [place] [address]- 2937 Dec, [facility] [place] [facility] [address] [id number] [place] [address]- 1855 Dec, [facility] [place] [facility] [address] [id number] [place] [address]- 4025 Dec, [facility] [place] [facility] [address] [id number] [place] [address]- 1115 Dec, [facility] [place] [facility] [address] [id number] [place] [address]- 7566 Dec, [facility] [place] [facility] [address] [id number] [place] [address]- 2118 Dec, [facility] [place] [facility] [address] [id number] [place] [address]- 3446 Dec, [facility] [place] [facility] [address] [id number] [place] [address]- 6923 Nov, [facility] [place] [facility] [address] [id number] [place] [address]- 4100 Nov, [facility] [place] [facility] [address] [id number] [place] [address]- 5281 Nov, [facility] [place] [facility] [address] [id number] [place] [address]- 3923 Nov, [facility] [place] [facility] [address] [id number] [place] [address]- 0831 Sep, [facility] [place] [facility] [address] [id number] [place] [address]- 7464 Sep, [facility] [place] [facility] [address] [id number] [place] [address]- 6548 Jul, [facility] [place] [facility] [address] [id number], [place] [address]- 9234 Jul, [facility] [address] [facility] [id number], [place] [address]- 9601 Jul, [facility] [address] [facility] [id number], [place] [address]- 5051 Jul, [facility] [address] [facility] [id number], [place] [address]- 3850 Jul, [facility] [address] [facility] [id number], [place] [address]- 4537 Jul, [facility] [address] [facility] [id number], [place] [address]- 2837 Jul, [facility] [address] [facility] [id number], [place] [address]- 4873 Jul, [facility] [address] [facility] [id number], [place] [address]- 2634 Jul, [facility] [address] [facility] [id number], [place] [address]- 5330 Jul, [facility] [address] [facility] [id number], [place] [address]- 6829 Jun, [facility] [address] [facility] [id number], [place] [address]- 6512 Jun, [facility] [address] [facility] [id number], [place] [address]- 3813 Jun, [facility] [address] [facility] [id number], [place] [address]- 1516 Jun, [facility] [address] [facility] [id number], [place] [address]- 2853 Mar, [facility] [address] [facility] [id number], [place] [address]- 4425 Mar, IMMUNIZATIONS No Known Immunizations SOCIAL HISTORY Never Assessed REASON FOR VISIT Refill requests PLAN OF CARE VITAL SIGNS MEDICATIONS Medication Instructions Dosage Frequency Start Date End Date Duration Status Amlodipine Besylate 5 mg Orally Once a day TAKE ONE TABLET BY MOUTH ONCE DAILY 24h 30 days Active Metformin HCl 500 mg Orally Once a day 1 tablet with meals 24h Active RESULTS No Results PROCEDURES No Known procedures INSTRUCTIONS MEDICATIONS ADMINISTERED No Known Medications MEDICAL (GENERAL) HISTORY Type Description Date Medical History hypertension Medical History pre-diabetic Medical History hyperlipidemia Hospitalization History pneumonia age 20
--- OUTSIDE RECORDS SUMMARY | 2018-03-03 06:42 | XMS REPORT ---
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
--- OUTSIDE RECORDS SUMMARY | 2018-03-03 06:42 | XMS REPORT ---
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 Active 19860411849118 Problem HTN (hypertension) I10 Active 53838247 ALLERGIES No Known Allergies ENCOUNTERS Encounter Location Date Diagnosis [place] [id number] [place] [address] 12265- 2495 Apr, [place] [address] [address] Jan, Chest discomfort R07.89 ; HTN (hypertension) I10 ; Hyperlipidemia, unspecified hyperlipidemia type E78.5 and Tobacco use Z72.0 [place] [id number] [place] [address] 90495- 5388 Jan, [facility] [id number] [place] [address] 19758- 2180 Nov, Hypercholesteremia E78.0 [facility] [id number] [place] [address] 25698 -9657 Nov, Chest discomfort R07.89 and Sinus congestion R09.81 [place] [id number] [place] [address] 28945- 0127 Nov, 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 [place] [id number] [address] Jun, 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 ; HTN (hypertension) I10 ; Depression, unspecified depression type F32.9 and Hypercholesteremia E78.0 [facility] [address] [address] Mar, Recurrent major depressive disorder, in partial remission F33.41 ; Hypercholesteremia E78.0 ; Insomnia G47.00 ; HTN (hypertension) I10 and 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 [place] [id number] [place] [address] 08769- 8936 Feb, HTN (hypertension) I10 and 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 [place] [id number] [place] [address] 87218- 0255 Jan, Hypercholesteremia E78.0 ; 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 and HTN (hypertension) I10 [place] [id number] [place] [address] 28076- 0877 Jan, [place] [id number] [place] [address] 93247- 8242 October, 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 ; HTN (hypertension) I10 ; Hypercholesteremia E78.0 and Insomnia G47.00 [place] [address] [address] Sep, [place] [id number] [place] [address] 50429- 5718 Jun, 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 ; HTN (hypertension) I10 ; Insomnia G47.00 ; Hypercholesteremia E78.0 and Depression, unspecified depression type F32.9 [facility] [address] [address] 06[address] Apr, [facility] [id number] [place] [address] 57864- 9880 Dec, 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 [place] [id number] [place] [address] 62841- 3963 Dec, [place] [id number] [place] [address] 53706- 4303 Dec, 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 ; HTN (hypertension) I10 ; Insomnia G47.00 ; Hypercholesteremia E78.0 and Depression, unspecified depression type F32.9 [place] [id number] [place] [address] 38422- 5765 Sep, Sinusitis J32.9 [place] [id number] [place] [address] 70190- 4226 Aug, [place] [id number] [place] [address] 80751- 0711 May, [place] [id number] [place] [address] 09045- 5726 May, [place] [id number] [place] [address] 73324- 1152 May, HTN (hypertension) I10 ; Insomnia G47.00 ; 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 and Hypercholesteremia E78.0 [place] [id number] [place] [address] 05285- 9467 Apr, [place] [id number] [place] [address] 78624- 6954 Dec, Diabetes mellitus without mention of complication, type II or unspecified type, not stated as uncontrolled 250.00 ; Essential hypertension , benign 401.1 ; Insomnia, unspecified 780.52 and Leg pain 729.5 [place] [id number] [place] [address] 12834- 6699 Sep, [place] [id number] [place] [address] 49800- 8953 Sep, [facility] [place] [facility] [address] [id number] [place] [address] 1606 Jul, [facility] [place] [facility] [address] [id number] [place] [address]- 4526 Jul, [facility] [place] [facility] [address] [id number] [place] [address]- 9326 Jul, [facility] [place] [facility] [address] [id number] [place] [address]- 2584 Jul, [facility] [place] [facility] [address] [id number] [place] [address]- 9739 Jun, [facility] [place] [facility] [address] [facility] [id number] [place] [address]- 0820 Jun, [facility] [place] [facility] [address] [facility] [id number] [place] [address]- 0758 Jun, [facility] [place] [facility] [address] [facility] [id number] [place] [address]- 3627 Jun, [facility] [place] [facility] [address] [facility] [id number] [place] [address] May, [facility] [place] [facility] [address] [facility] [id number] [place] [address]- 5985 May, [facility] [place] [facility] [address] [facility] [id number] [place] [address]- 2161 May, [facility] [place] [facility] [address] [facility] [id number] [place] [address]- 3974 May, [facility] [place] [facility] [address] [id number] [place] [address]- 5192 Apr, [facility] [place] [facility] [address] [facility] [id number] [place] [address]- 7240 Apr, [facility] [place] [facility] [address] [facility] [id number] [place] [address]- 9651 Mar, [facility] [place] [facility] [address] [id number] [place] [address]- 5861 Mar, [facility] [place] [facility] [address] [id number] [place] [address]- 1494 Mar, [facility] [place] [facility] [address] [id number] [place] [address] Mar, [facility] [place] [facility] [address] [id number] [place] [address]- 7685 Feb, [facility] [place] [facility] [address] [id number] [place] [address]- 3915 Feb, [facility] [place] [facility] [address] [id number] [place] [address]- 0252 Jan, [facility] [place] [facility] [address] [id number] [place] [address]- 0189 Jan, [facility] [place] [facility] [address] [id number] [place] [address]- 9277 Jan, [facility] [place] [facility] [address] [id number] [place] [address]- 1126 Jan, [facility] [place] [facility] [address] [id number] [place] [address]- 2357 Dec, [facility] [place] [facility] [address] [id number] [place] [address]- 3245 Dec, [facility] [place] [facility] [address] [id number] [place] [address]- 9850 Dec, [facility] [place] [facility] [address] [id number] [place] [address]- 1246 Dec, [facility] [place] [facility] [address] [id number] [place] [address]- 0292 Dec, [facility] [place] [facility] [address] [id number] [place] [address]- 1836 Dec, [facility] [place] [facility] [address] [id number] [place] [address]- 1382 Dec, [facility] [place] [facility] [address] [id number] [place] [address]- 6124 Dec, [facility] [place] [facility] [address] [id number] [place] [address]- 8511 Nov, [facility] [place] [facility] [address] [facility] [id number] [place] [address]- 9031 Nov, [facility] [place] [facility] [address] [id number] [place] [address]- 1821 Nov, [facility] [place] [facility] [address] [id number] [place] [address]- 0976 Nov, [facility] [place] [facility] [address] [facility] [id number] [place] [address]- 6026 Sep, [facility] [place] [facility] [address] [facility] [id number] [place] [address]- 4783 Sep, [facility] [place] [facility] [address] [id number] [place] [address]- 1802 Jul, [facility] [place] [facility] [address] [id number] [place] [address]- 2747 Jul, [facility] [place] [facility] [address] [facility] [id number] [place] [address]- 3684 Jul, [facility] [place] [facility] [address] [facility] [id number] [place] [address]- 6015 Jul, [facility] [place] [facility] [address] [facility] [id number] [place] [address]- 7385 Jul, [facility] [place] [facility] [address] [id number] [place] [address] Jul, [facility] [place] [facility] [address] [id number] [place] [address] Jul, [facility] [place] [facility] [address] [facility] [id number] [place] [address] Jul, [facility] [address] [facility] [id number] [address]- 7956 Jul, [facility] [id number] [address] Jul, [facility] [id number] [address]- 8831 Jun, [facility] [address] [address] Jun, [facility] [id number] [address]- 9568 Jun, [facility] [address] 4[address] Jun, [facility] [address] [address]- 0823 Mar, [facility] [id number] [address]- 0253 Mar, IMMUNIZATIONS No Known Immunizations SOCIAL HISTORY Never Assessed REASON FOR VISIT sinus congestion started about 1 week ago [facility] PLAN OF CARE Activity Details Follow Up RTC in 1 week if not improving. Keep cardiology appt. when made. Reason: Pending Test LIPID PANEL Pending Test CMP Pending Test MAGNESIUM SERUM Pending Test CBC Pending Test TSH VITAL SIGNS Height 73 in 2017-12-03 Weight 225.8 lbs 2017-12-03 Temperature 97.4 degrees Fahrenheit 2017-12-03 Heart Rate 88 bpm 2017-12-03 Respiratory Rate 20 2017-12-03 BMI 29.79 kg/m2 2017-12-03 Blood pressure systolic 140 mmHg 2017-12-03 Blood pressure diastolic 80 mmHg 2017-12-03 MEDICATIONS Medication Instructions Dosage Frequency Start Date End Date Duration Status Amlodipine Besylate 5 mg Orally Once a day 1 tablet 24h Jun, Active Loratadine 10 MG Orally Once a day 1 tablet 24h 30 day(s) Active MetFORMIN HCl ER 750 MG Orally Once a day 1 tablet with evening meal 24h Mar, 90 days Active Simvastatin 20 mg Orally Once a day 1 tablet in the evening 24h Active RESULTS No Results PROCEDURES Procedure Date Ordered Result Body Site ELECTROCARDIOGRAM, TRACING December 03, 2017 ASSAY OF MAGNESIUM December 03, 2017 COMPREHEN METABOLIC PANEL December 03, 2017 COMPLETE CBC W/AUTO DIFF WBC December 03, 2017 LIPID PANEL December 03, 2017 ASSAY THYROID STIM HORMONE December 03, 2017 INSTRUCTIONS MEDICATIONS ADMINISTERED No Known Medications MEDICAL (GENERAL) HISTORY Type Description Date Medical History hypertension Medical History pre-diabetic Medical History hyperlipidemia Hospitalization History pneumonia age 20
--- OUTSIDE RECORDS SUMMARY | 2018-03-03 06:43 | XMS REPORT ---
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
--- OUTSIDE RECORDS SUMMARY | 2018-03-03 06:43 | XMS REPORT ---
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 Unknown Non Drug Allergy Jun, Unknown SOCIAL HISTORY No smoking Hx information available PLAN OF CARE Activity Details Follow Up 3 Months, prn Reason: VITAL SIGNS Height 73 in 2016-06-30 Weight 238.3 lbs 2016-06-30 Temperature 98.3 degrees Fahrenheit 2016-06-30 Heart Rate 76 bpm 2016-06-30 Respiratory Rate 18 2016-06-30 BMI 31.44 kg/m2 2016-06-30 Blood pressure systolic 140 mmHg 2016-06-30 Blood pressure diastolic 92 mmHg 2016-06-30 MEDICATIONS Medication Instructions Dosage Frequency Start Date End Date Duration Status Amlodipine Besylate 5 mg Orally Once a day TAKE ONE TABLET BY MOUTH ONCE DAILY 24h 30 Active Metformin HCl 500 MG Orally Once a day 1 tablet with meals 24h Active Lisinopril 20 mg Orally Once a day 1 tablet 24h 90 days Active Citalopram Hydrobromide 20 mg Orally, voucher please Once a day 1 tablet 24h Dec, Active Simvastatin 20 mg Orally Once a day 1 tablet in the evening 24h Active RESULTS Name Result Date Reference Range A1C (IN HOUSE) 2016-06-30 A1C IN HOUSE 6.6 4.3 - 5.6 % Previous A1c 6.4 Lot [id number] Exp date CBC 2016-06-30 WBC 11.0 3.4-10.8 RBC 4.97 4.14-5.80 Hemoglobin 14.8 12.6-17.7 Hematocrit 44.0 37.5-51.0 MCV 89 79-97 MCH 29.8 26.6-33.0 MCHC 33.6 31.5-35.7 RDW 13.7 12.3-15.4 Platelets 254 150-379 Neutrophils 67 Lymphs 26 Monocytes 6 Eos 1 Basos 0 Neutrophils (Absolute) 7.4 1.4-7.0 Lymphs (Absolute) 2.8 0.7-3.1 Monocytes(Absolute) 0.7 0.1-0.9 Eos (Absolute) 0.1 0.0-0.4 Baso (Absolute) 0.0 0.0-0.2 Immature Granulocytes 0 Immature Grans (Abs) 0.0 0.0-0.1 LIPID PANEL 2016-06-30 Cholesterol, Total 165 100-199 Triglycerides 96 0-149 HDL Cholesterol 30 >39 VLDL Cholesterol Joseph 19 5-40 LDL Cholesterol Calc 116 0-99 Comment: CMP 2016-06-30 Glucose, Serum 119 65-99 BUN 11 8-27 Creatinine, Serum 0.80 0.76-1.27 eGFR If NonAfricn Am 97 >59 eGFR If Africn Am 112 >59 BUN/Creatinine Ratio 14 10-22 Sodium, Serum 140 134-144 Potassium, Serum 4.2 3.5-5.2 Chloride, Serum 102 96-106 Carbon Dioxide, Total 22 18-29 Calcium, Serum 9.4 8.6-10.2 Protein, Total, Serum 6.9 6.0-8.5 Albumin, Serum 4.6 3.6-4.8 Globulin, Total 2.3 1.5-4.5 A/G Ratio 2.0 1.1-2.5 Bilirubin, Total 0.8 0.0-1.2 Alkaline Phosphatase, S 76 39-117 AST (SGOT) 20 0-40 ALT (SGPT) 24 0-44 PROCEDURES Procedure Date Ordered Related Diagnosis Body Site GLYCATED HEMOGLOBIN TEST Jun 30, 2016 COMPREHEN METABOLIC PANEL Jun 30, 2016 LIPID PANEL Jun 30, 2016 COMPLETE CBC W/AUTO DIFF WBC Jun 30, 2016 VENIPUNCT, ROUTINE* Jun 30, 2016 Office Visit, Est Pt., Level 4 Jun 30, 2016 IMMUNIZATIONS No Known Immunizations
--- OUTSIDE RECORDS SUMMARY | 2018-03-03 06:43 | XMS REPORT ---
Author RAVINDRA Fonseca [facility] eClinicalWorks Address Unknown Phone Unavailable Care Team Providers Care Generator Switchboard Operator Name Role Phone RAVINDRA CHAUHAN CP Unavailable Allergies, Adverse Reactions, Alerts Substance Reaction Event Type N.K.D.A. 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 [address]-52 20 MG Orally Once a day 1 tablet Amlodipine Besylate [facility] [address]-09 5 MG TAKE ONE TABLET BY MOUTH ONCE DAILY FOR BLOOD PRESSURE Simvastatin [facility] [address]-31 10 MG Orally Once a day 1 tablet in the evening Metformin HCl [facility] [address]-42 500 MG Orally Once a day Apr 17, 2015 1 tablet with meals Ambien [facility] [address]-23 10 MG Orally Once a day May 17, 2015 1 tablet at bedtime as needed Procedures Procedure Coding System Code Date MICROALBUMIN, SEMIQUANT CPT-4 42541 May 17, 2015 Office Visit, Est Pt., Level 4 CPT-4 77498 May 17, 2015 GLYCATED HEMOGLOBIN TEST CPT-4 08376 May 17, 2015 Vital Signs Date/Time: May 17, 2015 Temperature 97.7 F Weight 247.2 lbs Height 73 in BMI 32.61 Index Blood Pressure Diastolic 86 mmHg Blood Pressure Systolic 142 mmHg Cardiac Monitoring Heart Rate 68 bpm Results Name Result Date Reference Range Unit Abnormality Flag A1C (IN HOUSE) ----A1C IN HOUSE 5.8 20150517 4.30 - 5.6 % ----Previous A1c 6.3 [id number] ----Lot # [id number] ----Exp date 20150517 MICROALBUMIN, URINE (IN HOUSE) ----Lot # [id number] ----CRE 300 [id number] ----Exp date 20150517 ----ALB 30 [id number] ----Control + [id number] ----Control + [id number] ----A:C (IN HOUSE) <30 [id number] ----Clarity Clear [id number] ----Color Yellow [id number] ----Lot # [id number] ----Exp date 20150517 ----MICROALBUMIN Normal [id number] Summary Purpose eClinicalWorks Submission
--- OUTSIDE RECORDS SUMMARY | 2018-03-03 06:43 | XMS REPORT ---
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
--- OUTSIDE RECORDS SUMMARY | 2018-03-03 06:43 | XMS REPORT ---
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 04945399156917 Problem HTN (hypertension) I10 Active 28321308 Problem Hypercholesteremia E78.0 Active [id number] ALLERGIES No Known Allergies ENCOUNTERS Encounter Location Date Diagnosis [place] [id number] [address] Jun, 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 ; HTN (hypertension) I10 ; Depression, unspecified depression type F32.9 and Hypercholesteremia E78.0 [place] [address] [place] [id number] [place] [address]- [address] 02 Mar, 2017 Recurrent major depressive disorder, in partial remission F33.41 ; Hypercholesteremia E78.0 ; Insomnia G47.00 ; HTN (hypertension) I10 and 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 [place] [address] [place] [id number] [place] [address] 15125- 3566 Feb, HTN (hypertension) I10 and 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 [place] [address] [place] [id number] [place] [address] 64167- 2702 Jan, Hypercholesteremia E78.0 ; 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 and HTN (hypertension) I10 [place] [address] [address]- [address] Jan, [place] [address] [place] [address] 95586- 7451 October, 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 ; HTN (hypertension) I10 ; Hypercholesteremia E78.0 and Insomnia G47.00 [place] [address] [place] [id number] [place] [address] 08166- 0809 Sep, [place] [address] [place] [id number] [place] [address] 46374- 1850 Jun, 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 ; HTN (hypertension) I10 ; Insomnia G47.00 ; Hypercholesteremia E78.0 and Depression, unspecified depression type F32.9 [place] [address] [place] [id number] [place] [address] 39708- 7443 Apr, [place] [address] [place] [id number] [place] [address] 82048- 1420 Dec, 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 [place] [address] [place] [id number] [place] [address] 94280- 3167 Dec, [place] [address] [place] [id number] [place] [address] 30153- 7827 Dec, 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 ; HTN (hypertension) I10 ; Insomnia G47.00 ; Hypercholesteremia E78.0 and Depression, unspecified depression type F32.9 [place] [address] [place] [address] 13156- 1801 Sep, Sinusitis J32.9 [place] [address] [place] [id number] [place] [address] 64729- 3172 Aug, [place] [address] [place] [id number] [place] [address] 92029- 9089 May, [place] [address] [place] [id number] [place] [address] 41620- 7333 May, [facility] [address] [place] [id number] [place] [address] 678440- 2243 May, HTN (hypertension) I10 ; Insomnia G47.00 ; 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 and Hypercholesteremia E78.0 [facility] [address] [place] [id number] [place] [address] 878987- 5442 Apr, [facility] [address] 137545- 6253 Dec, Diabetes mellitus without mention of complication, type II or unspecified type, not stated as uncontrolled 250.00 ; Essential hypertension , benign 401.1 ; Insomnia, unspecified 780.52 and Leg pain 729.5 [facility] [address] [place] [id number] [place] [address] 95567- 9638 Sep, [facility] [address] 6[address]51- 3341 Sep, [facility] [address] [place] [id number] [place] [address] 92439- 9309 Jul, [facility] [address] [place] [id number] [place] [address] 26442- 1394 Jul, [facility] [address] [place] [id number] [place] [address] 09212- 3859 Jul, [facility] [address] [place] [id number] [place] [address] 65897- 9608 Jul, [facility] [address] [place] [id number] [place] [address] 875176- 4227 Jun, [facility] [address] 859678- 8773 Jun, [facility] [address] [place] [id number] [place] [address] 240627- 4566 Jun, [facility] [address] 498364- 9814 Jun, [facility] [place] [facility] [address] [id number] [place] [address] 8038 May, [facility] [place] [facility] [address] [id number] [place] [address]- 0977 May, [facility] [place] [facility] [address] [id number] [place] [address]- 2973 May, [facility] [place] [facility] [address] [id number] [place] [address]- 7562 May, [facility] [place] [facility] [address] [id number] [place] [address] Apr, [facility] [place] [facility] [address] [id number] [place] [address] Apr, [facility] [place] [facility] [address] [id number] [place] [address] Mar, [facility] [place] [facility] [address] [id number] [place] [address]- 7821 Mar, [facility] [place] [facility] [address] [id number] [place] [address]- 4199 Mar, [facility] [place] [facility] [address] [id number] [place] [address]- 1440 Mar, [facility] [place] [facility] [address] [id number] [place] [address]- 8113 Feb, [facility] [place] [facility] [address] [id number], [place] [address]- 8945 Feb, [facility] [place] [facility] [address] [id number] [place] [address]- 1904 Jan, [facility] [place] [facility] [address] [id number] [place] [address]- 1682 Jan, [facility] [place] [facility] [address] [id number] [place] [address] Jan, [facility] [place] [facility] [address] [id number], [place] [address]- 5573 Jan, [facility] [place] [facility] [address] [id number] [place] [address]- 6500 Dec, [facility] [place] [facility] [address] [id number] [place] [address]- 2300 Dec, [facility] [place] [facility] [address] [id number] [place] [address]- 8655 Dec, [facility] [place] [facility] [address] [id number] [place] [address]- 1503 Dec, [facility] [place] [facility] [address] [id number] [place] [address]- 3637 Dec, [facility] [place] [facility] [address] [id number] [place] [address]- 5964 Dec, [facility] [place] [facility] [address] [id number] [place] [address]- 8246 Dec, [facility] [place] [facility] [address] [id number] [place] [address]- 7340 Dec, [facility] [place] [facility] [address] [id number] [place] [address]- 1273 Nov, [facility] [place] [facility] [address] [id number] [place] [address]- 8564 Nov, [facility] [place] [facility] [address] [id number] [place] [address]- 3238 Nov, [facility] [place] [facility] [address] [id number] [place] [address]- 1169 Nov, [facility] [place] [facility] [address] [id number] [place] [address]- 4981 Sep, [facility] [place] [facility] [address] [id number] [place] [address]- 6214 Sep, [facility] [place] [facility] [address] [id number] [place] [address]- 8968 Jul, [facility] [place] [facility] [address] [id number], [place] [address]- 0460 Jul, [facility] [address] [facility] [id number], [place] [address]- 7579 Jul, [facility] [address] [facility] [id number], [place] [address]- 1276 Jul, [facility] [address] [facility] [id number], [place] [address]- 7218 Jul, [facility] [address] [facility] [id number] [place] [address]- 9160 Jul, [facility] [address] [facility] [id number], [place] [address]- 8691 Jul, [facility] [address] [facility] [id number], [place] [address]- 3937 Jul, [facility] [address] [facility] [id number], [place] [address]- 6094 Jul, [facility] [address] [facility] [id number], [place] [address]- 4674 Jul, [facility] [address] [facility] [id number], [place] [address]- 4865 Jun, [facility] [address] [facility] [id number], [place] [address]- 3729 Jun, [facility] [address] [facility] [id number], [place] [address]- 5399 Jun, [facility] [address] [facility] [id number], [place] [address]- 2519 Jun, [facility] [address] [facility] [id number], [place] [address]- 7385 Mar, [facility] [address] [facility] [id number], [place] [address]- 7348 Mar, IMMUNIZATIONS No Known Immunizations SOCIAL HISTORY Never Assessed REASON FOR VISIT Hypertension, Previously seen by Nickie Cr. -BRODY Gatica, Interested in re starting citalopram. States it helps him sleep better. PLAN OF CARE Activity Details Follow Up 3 Months Reason: VITAL SIGNS Height 73 in 2017-03-16 Weight 215 lbs 2017-03-16 Temperature 98.5 degrees Fahrenheit 2017-03-16 Heart Rate 80 bpm 2017-03-16 Respiratory Rate 18 2017-03-16 BMI 28.36 kg/m2 2017-03-16 Blood pressure systolic 142 mmHg 2017-03-16 Blood pressure diastolic 80 mmHg 2017-03-16 MEDICATIONS Medication Instructions Dosage Frequency Start Date End Date Duration Status Simvastatin 20 mg Orally Once a day 1 tablet in the evening 24h Active Lisinopril 40 mg Orally Once a day 1/2 tablet 24h Mar, 90 days Active MetFORMIN HCl ER 750 MG Orally Once a day 1 tablet with evening meal 24h Mar, 90 days Active Metformin HCl 500 mg Orally Once a day 1 tablet with meals 24h Active Amlodipine Besylate 5 mg Orally Once a day 1 tablet 24h Mar, 90 days Active Amlodipine Besylate 5 mg Orally Once a day TAKE ONE TABLET BY MOUTH ONCE DAILY 24h 30 days Active Amlodipine-Atorvastatin 5-20 MG Orally Once a day 1 tablet 24h Mar, 90 days Active Lisinopril 20 mg Orally Once a day 1 tablet 24h 90 days Active Simvastatin 20 mg Orally Once a day 1 tablet in the evening 24h Mar, 90 days Active Citalopram Hydrobromide 20 mg Orally Once a day 1 tablet 24h Mar, 90 days Active RESULTS Name Result Date Reference Range A1C (IN HOUSE) 2017-03-16 A1C IN HOUSE 5.7 4.3 - 5.6 % Previous A1c 6.0 Lot [id number] Exp date 10/2018 PROCEDURES Procedure Date Ordered Result Body Site GLYCATED HEMOGLOBIN TEST Mar 16, 2017 INSTRUCTIONS MEDICATIONS ADMINISTERED No Known Medications MEDICAL (GENERAL) HISTORY Type Description Date Medical History hypertension Medical History pre-diabetic Medical History hyperlipidemia Hospitalization History pneumonia age 20
--- OUTSIDE RECORDS SUMMARY | 2018-03-03 06:43 | XMS REPORT ---
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
--- OUTSIDE RECORDS SUMMARY | 2018-03-03 06:43 | XMS REPORT ---
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
--- OUTSIDE RECORDS SUMMARY | 2018-03-03 06:43 | XMS REPORT ---
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
--- OUTSIDE RECORDS SUMMARY | 2018-03-03 06:44 | XMS REPORT | Continuity of Care Document ---
Author Author [facility] Address Unknown Phone Unavailable Allergies Active Description Code Type Severity Reaction Onset Reported/Identified Relationship to Patient Clinical Status Yes No Known Drug Allergies [id number] Drug Allergy Unknown N/A 07/04/2014 Yes Augmentin Drug Allergy N/A N/A 10/03/2014 Medications There is no data. Problems Date Dx Coded Attending Type Code Diagnosis Diagnosed By 04/08/2013 SHAWN HAN DO 250.00 DIABETES II CONTROLLED (UNCOMPLICATED) 04/08/2013 SAHWN HAN DO 272.4 DYSLIPIDEMIA 04/08/2013 SHAWN HAN DO 401.1 HYPERTENSION, BENIGN ESSENTIAL 04/08/2013 SHAWN HAN DO 724.2 LUMBAGO/ LOW BACK PAIN 04/08/2013 BARBIE MANAGER WEB APPLICATION, SHOSHANA R 250.00 DIABETES II CONTROLLED (UNCOMPLICATED) 04/08/2013 BARBIE MANAGER WEB APPLICATION, SHOSHANA R 272.4 DYSLIPIDEMIA 04/08/2013 BARBIE MANAGER WEB APPLICATION, SHOSHANA R 401.1 HYPERTENSION, BENIGN ESSENTIAL 04/08/2013 BARBIE MANAGER WEB APPLICATION, SHOSHANA R 724.2 LUMBAGO/ LOW BACK PAIN 04/08/2013 BARBIE MANAGER WEB APPLICATION, SHOSHANA R 250.00 DIABETES II CONTROLLED (UNCOMPLICATED) 04/08/2013 BARBIE MANAGER WEB APPLICATION, SHOSHANA R 272.4 DYSLIPIDEMIA 04/08/2013 BARBIE MANAGER WEB APPLICATION, SHOSHANA R 401.1 HYPERTENSION, BENIGN ESSENTIAL 04/08/2013 BARBIE MANAGER WEB APPLICATION, SHOSHANA R 724.2 LUMBAGO/ LOW BACK PAIN 04/08/2013 BARBIE MANAGER WEB APPLICATION, SHOSHANA R 250.00 DIABETES II CONTROLLED (UNCOMPLICATED) 04/08/2013 BARBIE MANAGER WEB APPLICATION, SHOSHANA R 272.4 DYSLIPIDEMIA 04/08/2013 BARBIE MANAGER WEB APPLICATION, SHOSHANA R 401.1 HYPERTENSION, BENIGN ESSENTIAL 04/08/2013 BARBIE MANAGER WEB APPLICATION, SHOSHANA R 724.2 LUMBAGO/ LOW BACK PAIN 04/08/2013 BARBIE MANAGER WEB APPLICATION, SHOSHANA R 250.00 DIABETES II CONTROLLED (UNCOMPLICATED) 04/08/2013 BARBIE MANAGER WEB APPLICATION, SHOSHANA R 272.4 DYSLIPIDEMIA 04/08/2013 BARBIE MANAGER WEB APPLICATION, SHOSHANA R 401.1 HYPERTENSION, BENIGN ESSENTIAL 04/08/2013 BARBIE MANAGER WEB APPLICATION, SHOSHANA R 724.2 LUMBAGO/ LOW BACK PAIN 04/08/2013 BARBIE MANAGER WEB APPLICATION, SHOSHANA R 250.00 DIABETES II CONTROLLED (UNCOMPLICATED) 04/08/2013 BARBIE MANAGER WEB APPLICATION, SHOSHANA R 272.4 DYSLIPIDEMIA 04/08/2013 BARBIE MANAGER WEB APPLICATION, SHOSHANA R 401.1 HYPERTENSION, BENIGN ESSENTIAL 04/08/2013 BARBIE MANAGER WEB APPLICATION, SHOSHANA R 724.2 LUMBAGO/ LOW BACK PAIN 04/08/2013 BARBIE MANAGER WEB APPLICATION, SHOSHANA R 250.00 DIABETES II CONTROLLED (UNCOMPLICATED) 04/08/2013 BARBIE MANAGER WEB APPLICATION, SHOSHANA R 272.4 DYSLIPIDEMIA 04/08/2013 BARBIE MANAGER WEB APPLICATION, SHOSHANA R 401.1 HYPERTENSION, BENIGN ESSENTIAL 04/08/2013 BARBIE MANAGER WEB APPLICATION, SHOSHANA R 724.2 LUMBAGO/ LOW BACK PAIN 04/08/2013 BARBIE MANAGER WEB APPLICATION, SHOSHANA R 250.00 DIABETES II CONTROLLED (UNCOMPLICATED) 04/08/2013 BARBIE MANAGER WEB APPLICATION, SHOSHANA R 272.4 DYSLIPIDEMIA 04/08/2013 BARBIE MANAGER WEB APPLICATION, SHOSHANA R 401.1 HYPERTENSION, BENIGN ESSENTIAL 04/08/2013 BARBIE MANAGER WEB APPLICATION, SHOSHANA R 724.2 LUMBAGO/ LOW BACK PAIN 04/08/2013 BARBIE MANAGER WEB APPLICATION, SHOSHANA R 250.00 DIABETES II CONTROLLED (UNCOMPLICATED) 04/08/2013 BARBIE MANAGER WEB APPLICATION, SHOSHANA R 272.4 DYSLIPIDEMIA 04/08/2013 BARBIE MANAGER WEB APPLICATION, SHOSHANA R 401.1 HYPERTENSION, BENIGN ESSENTIAL 04/08/2013 BARBIE MANAGER WEB APPLICATION, SHOSHANA R 724.2 LUMBAGO/ LOW BACK PAIN 07/07/2013 BARBIE MANAGER WEB APPLICATION, SHOSHANA R 719.47 PAIN- FOOT 07/07/2013 BARBIE MANAGER WEB APPLICATION, SHOSHANA R 719.47 PAIN- FOOT 07/07/2013 BARBIE MANAGER WEB APPLICATION, SHOSHANA R 719.47 PAIN- FOOT 07/07/2013 BARBIE MANAGER WEB APPLICATION, SHOSHANA R 719.47 PAIN- FOOT 07/07/2013 BARBIE MANAGER WEB APPLICATION, SHOSHANA R 719.47 PAIN- FOOT 07/07/2013 BARBIE MANAGER WEB APPLICATION, SHOSHANA R 719.47 PAIN- FOOT 07/07/2013 BARBIE MANAGER WEB APPLICATION, SHOSHANA R 719.47 PAIN- FOOT 07/07/2013 BARBIE MANAGER WEB APPLICATION, SHOSHANA R 719.47 PAIN- FOOT 12/09/2013 BARBIE MANAGER WEB APPLICATION, SHOSHANA R 780.52 INSOMNIA UNSPECIFIED 12/09/2013 BARBIE MANAGER WEB APPLICATION, SHOSHANA R 780.52 INSOMNIA UNSPECIFIED 12/09/2013 BARBIE MANAGER WEB APPLICATION, SHOSHANA R 780.52 INSOMNIA UNSPECIFIED 12/09/2013 BARBIE MANAGER WEB APPLICATION, SHOSHANA R 780.52 INSOMNIA UNSPECIFIED 12/09/2013 BARBIE MANAGER WEB APPLICATION, SHOSHANA R 780.52 INSOMNIA UNSPECIFIED 12/09/2013 BARBIE MANAGER WEB APPLICATION, SHOSHANA R 780.52 INSOMNIA UNSPECIFIED 04/13/2014 BARBIE MANAGER WEB APPLICATION, HSOSHANA R 719.40 PAIN IN JOINT SITE UNSPECIFIED 04/13/2014 BARBIE MANAGER WEB APPLICATION, SHOSHANA R 719.40 PAIN IN JOINT SITE UNSPECIFIED 04/13/2014 BARBIE MANAGER WEB APPLICATION, SHOSHANA R 719.40 PAIN IN JOINT SITE UNSPECIFIED 04/13/2014 BARBIE MANAGER WEB APPLICATION, SHOSHANA R 719.40 PAIN IN JOINT SITE UNSPECIFIED 04/13/2014 BARBIE MANAGER WEB APPLICATION, SHOSHANA R 719.40 PAIN IN JOINT SITE UNSPECIFIED 07/04/2014 ALEX PARISH DO Ot 473.9 CHRONIC SINUSITIS NOS 07/04/2014 ALEX PARISH DO K Ot 780.4 DIZZINESS AND GIDDINESS 07/05/2014 BARBIE MANAGER WEB APPLICATION, SHOSHANA R 461.9 ACUTE SINUSITIS UNSPECIFIED 07/05/2014 BARBIE MANAGER WEB APPLICATION, SHOSHANA R 780.4 DIZZINESS AND GIDDINESS 07/05/2014 BARBIE MANAGER WEB APPLICATION, SHOSHANA R 461.9 ACUTE SINUSITIS UNSPECIFIED 07/05/2014 BARBIE GONZALEZ, SHOSHANA R 780.4 DIZZINESS AND GIDDINESS 02/18/2018 SHIVA BOYLE MD Ot E78.5 HYPERLIPIDEMIA, UNSPECIFIED 02/18/2018 SHIVA BOLYE MD Ot I10 ESSENTIAL (PRIMARY) HYPERTENSION 02/18/2018 SHIVA BOYLE MD Ot R07.89 OTHER CHEST PAIN 02/18/2018 SHIVA BOYLE MD Ot Z72.0 TOBACCO USE 02/18/2018 SHIVA BOYLE MD Ot R07.9 CHEST PAIN, UNSPECIFIED Procedures Code Description [place] [address] A1C (IN-HOUSE) 04/08/2013 84415 ROUTINE VENIPUNCTURE 07/08/2013 69924 CMP 07/08/2013 32358 LIPID PANEL 07/08/2013 80773 TSH 07/08/2013 20803 CBC 07/08/2013 73335 ROUTINE VENIPUNCTURE 12/09/2013 77526 A1C (IN-HOUSE) 12/09/2013 67962 MICRO ALBUMIN-IN HOUSE 12/09/2013 39640 LIPID PANEL 12/09/2013 58782 URIC ACID 12/09/2013 64578 A1C (IN-HOUSE) 04/13/2014 25199 LIPID PANEL 04/18/2014 83815 URIC ACID 04/18/2014 09604 ROUTINE VENIPUNCTURE 04/18/2014 14062 A1C (IN-HOUSE) 07/25/2014 Results Test Result Range CBC With Differential/Platelet - 06/30/16 09:19 WBC 11.0 x10E3/uL 3.4-10.8 RBC 4.97 x10E6/uL 4.14-5.80 Hemoglobin 14.8 g/dL 12.6-17.7 Hematocrit 44.0 % 37.5-51.0 MCV 89 fL 79-97 MCH 29.8 pg 26.6-33.0 MCHC 33.6 g/dL 31.5-35.7 RDW 13.7 % 12.3-15.4 Platelets 254 x10E3/uL 150-379 Neutrophils 67 % Lymphs 26 % Monocytes 6 % Eos 1 % Basos 0 % Neutrophils (Absolute) 7.4 x10E3/uL 1.4-7.0 Lymphs (Absolute) 2.8 x10E3/uL 0.7-3.1 Monocytes(Absolute) 0.7 x10E3/uL 0.1-0.9 Eos (Absolute) 0.1 x10E3/uL 0.0-0.4 Baso (Absolute) 0.0 x10E3/uL 0.0-0.2 Immature Granulocytes 0 % Immature Grans (Abs) 0.0 x10E3/uL 0.0-0.1 Comp. Metabolic Panel (14) - 06/30/16 09:19 Glucose, Serum 119 mg/dL 65-99 BUN 11 mg/dL 8-27 Creatinine, Serum 0.80 mg/dL 0.76-1.27 eGFR If NonAfricn Am 97 mL/min/1.73 >59 eGFR If Africn Am 112 mL/min/1.73 >59 BUN/Creatinine Ratio 14 10-22 Sodium, Serum 140 mmol/L 134-144 Potassium, Serum 4.2 mmol/L 3.5-5.2 Chloride, Serum 102 mmol/L 96-106 Carbon Dioxide, Total 22 mmol/L 18-29 Calcium, Serum 9.4 mg/dL 8.6-10.2 Protein, Total, Serum 6.9 g/dL 6.0-8.5 Albumin, Serum 4.6 g/dL 3.6-4.8 Globulin, Total 2.3 g/dL 1.5-4.5 A/G Ratio 2.0 1.1-2.5 Bilirubin, Total 0.8 mg/dL 0.0-1.2 Alkaline Phosphatase, S 76 IU/L 39-117 AST (SGOT) 20 IU/L 0-40 ALT (SGPT) 24 IU/L 0-44 Lipid Panel - 06/30/16 09:19 Cholesterol, Total 165 mg/dL 100-199 Triglycerides 96 mg/dL 0-149 HDL Cholesterol 30 mg/dL >39 VLDL Cholesterol Joseph 19 mg/dL 5-40 LDL Cholesterol Calc 116 mg/dL 0-99 LIPID PANEL - 12/07/17 09:54 CHOLESTEROL, TOTAL 153 mg/dL <200 HDL CHOLESTEROL 23 mg/dL >40 TRIGLYCERIDES 178 mg/dL <150 LDL-CHOLESTEROL 100 mg/dL (calc) NRG CHOL/HDLC RATIO 6.7 (calc) <5.0 NON HDL CHOLESTEROL 130 mg/dL (calc) <130 Encounters ACCT No. Visit Date/Time Discharge Status Pt. Type Provider Facility Loc./Unit Complaint [id number] 10/03/2014 15:37:00 10/03/2014 23:59:59 [facility] Outpatient SHOSHANA VALENTIN APRN [id number] 07/25/2014 10:05:00 07/25/2014 23:59:59 [facility] Outpatient SHOSHANA VALENTIN APRN [id number] 06/20/2014 13:16:00 06/20/2014 23:59:59 [facility] Outpatient SHOSHANA VALENTIN APRN [id number] 05/16/2014 09:46:00 05/16/2014 23:59:59 [facility] Outpatient SHOSHANA VALENTIN APRN [id number] 04/18/2014 08:01:00 04/18/2014 23:59:59 [facility] Outpatient SHOSHANA VALENTIN APRN [id number] 12/15/2013 08:28:00 12/15/2013 23:59:59 [facility] Outpatient SHOSHANA VALENTIN APRN [id number] 08/02/2013 16:23:00 08/02/2013 23:59:59 [facility] Outpatient SHOSHANA VALENTIN APRN [id number] 07/08/2013 08:37:00 07/08/2013 23:59:59 [facility] Outpatient SHOSHANA VALENTIN APRN [id number] 04/08/2013 15:17:00 04/08/2013 23:59:59 [facility] Outpatient EMELY SHAWN FLETCHER Cheryl [id number] 12/07/2017 09:20:00 12/07/2017 23:59:59 CLS Outpatient ANIKET ARREDONDO, [facility] [id number] 12/07/2017 09:20:00 Document Registration [id number] 02/17/2018 11:41:00 02/17/2018 23:59:59 [facility] Outpatient SHIVA BOYLE MD [facility] CARD CHEST DISCOMFORT,HTN, HYPERLIPIDEMIA,TOBACCO USE [id number] 02/16/2018 08:33:00 02/16/2018 23:59:59 CLS Outpatient SHIVA BOYLE MD [facility] CARD R07.89 CHEST DISCOMFORT [id number] 07/04/2014 04:50:00 07/04/2014 06:41:00 DIS Emergency ALEX PARISH DO [facility] ER COLD CHILLS,LIGHTHEADED, DIZZY [id number] 03/03/2018 09:00:00 PEN Preadmit SHIVA BOYLE MD [facility] CATH ABN STRESS TEST [id number] 07/01/2016 08:36:00 Document Registration
[2018-03-03] MEDS ORDERED: HEParin (CATH LAB) 1,000 ML IV ONE (06:45)
[2018-03-03] MEDS ORDERED: LIDOCAINE 1% INJ 20 ML 20 ML VIAL ONE (06:45)
[2018-03-03] MEDS ORDERED: NS IV 1000 ML 1,000 ML IV SCH ×2 (07:00→09:06)
[2018-03-03 07:02] VITALS: BP 147/98
[2018-03-03 07:15] LABS: HEMOGLOBIN 14.1 G/DL (13.3-17.7); RED BLOOD COUNT 4.6 10^6/uL (4.35-5.85); RED CELL DISTRIBUTION WIDTH 13.8 % (10.0-14.5); WHITE BLOOD COUNT 10.6 10^3/uL (4.3-11.0)
[2018-03-03] MEDS ORDERED: SIMV20TA3 PO (07:17)
[2018-03-03] MEDS ORDERED: AMLO5TAB7 PO (07:17)
[2018-03-03] MEDS ORDERED: METF750T2 PO (07:17)
[2018-03-03] MEDS ORDERED: LISI-552 PO (07:17)
[2018-03-03] MEDS ORDERED: ASPI-983 PO (07:17)
--- NOTE | 2018-03-03 07:24 | Cardiac Procedure Note-CS/ASA ---
Pre-Procedure Note Pre-Op Procedure Note H&P Reviewed The H&P was reviewed, patient examined and no changes noted. Date H&P Reviewed: Mar 03, 2018 Time H&P Reviewed: 07:24 Conscious Sedation Pre-Proced Time Reviewed: 07:24 ASA Class: 3 Airway Mallampati Classification: (little traverse appropriate class) I. II. III, IV Lungs Heart ASA score ASA 1: a normal healthy patient ASA 2: a patient with a mild systemic disease (mid diabetes, controlled hypertension, obesity x ASA 3: a patient with a severe systemic disease that limits activity (angina , COPD, prior Myocardial infarction) ASA 4: a patient with an incapacitating disease that is a constant threat to life (CHF, renal failure) ASA 5: a moribund patient not expected to survive 24 hrs. (ruptured aneurysm) ASA 6: a declared brain patient whose organs are being harvested. For emergent operations, add the letter E after the classification Grade 3 Sedation Plan: Analgesia, Amnesia, Plan communicated to team members, Discussed options with patient/fam, Discussed risks with patient/fam Note The patient is an appropriate candidate to undergo the planned procedure, sedation, and anesthesia. The patient immediately re-assessed prior to indication. SHIVA BOYLE MD Mar 03, 2018 07:24
[2018-03-03 07:26] LABS: PROTHROMBIN TIME PATIENT 13.1 SEC (12.2-14.7)
[2018-03-03 07:33] LABS: ALANINE AMINOTRANSFERASE 25 U/L (0-55); ALBUMIN 4.6 GM/DL (3.2-4.5); ALKALINE PHOSPHATASE 65 U/L (40-136); BILIRUBIN,TOTAL 1.1 MG/DL (0.1-1.0); BUN/CREATININE RATIO 17; CALCIUM 9.3 MG/DL (8.5-10.1); CARBON DIOXIDE 21 MMOL/L (21-32); CHLORIDE 110 MMOL/L (98-107); CHOLESTEROL 181 MG/DL (< 200); CREATININE SERUM 0.87 MG/DL (0.60-1.30); GFR ESTIMATED > 60; GLUCOSE 116 MG/DL (70-105); HDL CHOLESTEROL 35 MG/DL (40-60); POTASSIUM 4.2 MMOL/L (3.6-5.0); SODIUM 140 MMOL/L (135-145); TOTAL PROTEIN 7.3 GM/DL (6.4-8.2); TRIGLYCERIDES 68 MG/DL (<150); VLDL CHOLESTEROL 14 MG/DL (5-40)
--- NOTE | 2018-03-03 08:25 | Diagnostic Imaging Report ---
INDICATION: Pre-heart catheterization. Patient has abnormal stress test and chest pain and hypertension. TIME OF EXAM: 7:02 AM Correlation is made with prior study from 07/04/2014. FINDINGS: The heart size is normal. The pulmonary vascularity is unremarkable. The lungs are clear. No infiltrate, effusion or pneumothorax is detected. IMPRESSION: No acute cardiopulmonary process is detected. Dictated by: Dictated on workstation # [id number]
[2018-03-03] MEDS ORDERED: HEParin 1000 UNIT/ML (10ML VIAL) FOR BOLUS ONE (08:33)
[2018-03-03] MEDS ORDERED: MIDAZOLAM 5 MG/5 ML (VERSED) VIAL ONE (08:33)
[2018-03-03] MEDS ORDERED: fentaNYL INJECTION 100 MCG/2 ML AMP ONE (08:33)
--- NOTE | 2018-03-03 09:12 | Cardiac Cath Report ---
Cardiac Cath Report Physician (s)/Patent Chemist (s) Physician SHIVA BOYLE MD Pre-Procedure Diagnosis Pre-Procedure Diagnosis: Coronary artery disease Post-Procedure Note Procedure Start Date: Mar 03, 2018 Name of Procedure: Coronary artery disease Findings/Procedure Note PROCEDURE NOTE: After explaining the procedure to the patient, all pros and cons were explained , all questions were answered. The patient signed the consent and then he was placed on the cardiac catheterization laboratory. Groin was prepped SL fashion local anesthesia was used. Sheath placed in the right femoral artery. Kumar right and left catheter were used to access the coronary system. Pigtail was used to access the left ventricular cavity. Left ventriculogram was done Aortic arch angiogram was done At the end of the procedure the sheath was removed. Closure device was used FINDINGS: Hemodynamics LV 121/16, end-diastolic pressure of 16 Aorta 118/56 mean of 75 ANATOMY: Left Main is free of obstructive disease Left Anterior Descending is totally occluded proximally reconstructed by collaterals, diagonal artery has moderate disease Left Circumflex has severe disease proximally Right Coronory Artery is occluded proximally reconstructed by collaterals LV Gram is slightly prominent with mild diffuse left ventricular hypokinesia more pronounced at the anterior wall, preserved systolic function with estimated ejection fraction 45-50 percent Aorta evaluation done with aortic arch angiogram which showed the arch to be slightly prominent, no dissection or aneurysm, origin of the right innominate artery is normal, the left carotid and left subclavian. To be overlapping. No obstructive disease CONCLUSION: 1. Severe multi-vessel disease with total occlusion of the proximal to mid LAD reconstructed by collaterals, total occlusion of the proximal right coronary artery reconstructed by collateral, severe disease at the proximal circumflex artery, the only artery providing collaterals to the rest of the system 2. Slightly prominent left ventricular size with preserved systolic function, estimated ejection fraction 45-50 percent 3. Normal aortic arch and great neck vessels DISCUSSION AND RECOMMENDATION: Continue to maximize medical therapy, arrange for transfer for evaluation for CABG HOSPITAL COURSE Patient was admitted to the floor, monitored, I discussed the management plan with Dr. Mike Savage at [facility] and will arrange for transfer for evaluation for CABG Anesthesia Type: Conscious Sedation Estimated blood loss (mL): 15 ml Contrast Amount: 80 ml Total Radiation Dose: 695 mGy Post-Procedure Diagnosis Post-operative diagnosis: Chest pain Coronary artery disease Hypertension Hyperlipidemia Diabetes mellitus SHIVA BOYLE MD Mar 03, 2018 09:12
[2018-03-03] MEDS ORDERED: PATIENT MAY USE OWN MEDS, ALL PO SCH (09:15)
[2018-03-03 09:30] VITALS: BP 145/76
[2018-03-03 09:45] VITALS: BP 143/78
[2018-03-03 10:00] VITALS: BP 154/74
[2018-03-03 10:15] VITALS: BP 139/74
[2018-03-03 10:30] VITALS: BP 143/69
[2018-03-15] MEDS ORDERED: METO-370 PO (11:37)
[2018-03-15] MEDS ORDERED: CLOP75TA28 PO (11:37)
== END 2018-03-03 10:47 | disposition short-term general hospital (02) ==
LOC: CATH 06:36
PROVIDERS: ATTEND Internal Medicine Cardiovascular Disease
DX: R07.9 Chest pain, unspecified (principal); I25.10 Atherosclerotic heart disease of native coronary artery without angina pectoris; I10 Essential (primary) hypertension; E78.2 Mixed hyperlipidemia; E11.9 Type 2 diabetes mellitus without complications; F17.290 Nicotine dependence, other tobacco product, uncomplicated; E66.9 Obesity, unspecified; Z11.2 Encounter for screening for other bacterial diseases; Z68.31 Body mass index [BMI] 31.0-31.9, adult
CPT/HCPCS: 36221; 36415; 71045; 80053; 80061; 85027; 85610; 85730; 87081; 93458

== ENCOUNTER 2018-03-11 11:21 | Inpatient (IN) | payer OTHER ==
[~2018-03-11] VITALS: Ht 185.4 cm; Wt 96.3 kg
[~2018-03-11 11:21] MED LIST changes: +AMLO5TAB7 PO; +ASPI-983 PO; +LISI-552 PO; +METF750T2 PO; +SIMV20TA3 PO
[2018-03-11] MEDS ORDERED: HYDROcodone/APAP 5 MG/325 MG (LORTAB) TAB PO PRN (14:30)
[2018-03-11 15:25] VITALS: BP 109/72
--- NOTE | 2018-03-11 15:52 | Physical Therapy Evaluation ---
PT Evaluation-General Medical Diagnosis Admission Date Mar 11, 2018 at 15:18 Medical Diagnosis: CABG x 5 Onset Date: Mar 05, 2018 Therapy Diagnosis Therapy Diagnosis: generalized weakness/debility Height/Weight Height (Feet): 6 Height (Inches): 1.00 Weight (Pounds): 240 Weight (Ounces): 0.0 Precautions Precautions/Isolations: Standard Precautions Weight Bear Status Right Lower Extremity: Right Weight Bearing/Tolerated Left Lower Extremity: Left Weight Bearing/Tolerated Referral Physician: Tyrel Reason for Referral: Evaluation/Treatment Medical History Pertinent Medical History: CABG, CAD, DM, Smoking Current History s/p CABG x 5 Reviewed History: Yes Social History Home: Single Level Current Living Status: Alone Entry Into Home: Ramp, Stairs With Railing PT Steps Into Home: 2 Prior/Core FIM Prior Level of Function Functional [place] Measure 0=Not Assessed/NA 4=Minimal Assistance 1=Total Assistance 5=Supervision or Setup 2=Maximal Assistance 6=Modified [place] 3=Moderate Assistance 7=Complete [place] Bed Mobility: 7 Transfers (B,C,W/C) (FIM): 7 Gait: 7 Locomotion: 7 works at [employer] PT Evaluation-Current Subjective Patient reports fatigue. Agrees to PT. Pain Numeric Pain Scale: 0-No Pain Location: No Pain Reported Objective Patient Orientation: Normal For Age Problem Solving: Good ROM/Strength ROM Lower Extremities bilateral LE WFL Strenght Lower Extremities 4/5 grossly bilaterally (no formal testing) Integumentary/Posture Integumentary refer to nursing notes Bowel Incontinence: No Bladder Incontinence: No Posture WFL Neuromuscular (Tone, Coordination, Reflexes) grossly intact Sensory Vision: Wears Glasses Hearing: Functional Sensation Right Lower Extremit: Intact Sensation Left Lower Extremity: Intact Transfers Functional [place] Measure 0=Not Assessed/NA 4=Minimal Assistance 1=Total Assistance 5=Supervision or Setup 2=Maximal Assistance 6=Modified [place] 3=Moderate Assistance 7=Complete IndependenceIRFPAI Quality Coding Scale 6 Independent with activity with or without an assistive device 5 Patient requires set up or clean up by helper. Patient completes activity by themselves 4 Supervision or touching assist (CGA). [place] provide cues , steadying assist 3 The helper provides less than half the effort to complete the activity 2 The helper provides more than half the effort to complete the activity 1 Dependent. The helper does all the effort to complete an activity 7 Patient refused to complete or attempt activity 9 The patient did not perform the activity before the current illness or injury 88 Not attempted due to Medical conditions or safety concerns Transfers (B, C, W/C) (FIM): 5 Scootin Rollin Roll Left to Right (QC): 5 Supine to/from Sit: 5 Sit to/from Stand: 5 Sit to Lying (QC): 5 Lying to Sitting/Side of Bed(Q: 5 Sit to Stand (QC): 5 Chair/Hcy-ug-Jxlxv Xfer(QC): 5 Car Transfer (QC): 6 Gait Does the Patient Walk?: Yes Mode of Locomotion: Walk Anticipated Mode of Locomotion: Walk Gait (FIM): 5 Distance (FIM): 3=150 ft Walk 10 feet (QC): 5 Walk 50 ft with 2 Turns(QC): 5 Walk 150 ft (QC): 5 Walking 10ft/uneven surface-QC: 5 Distance: 150' x 2 Gait Level of Assist: 5 Gait Assistive Device: None Comments/Gait Description reciprocal pattern/no deviation Wheelchair Training Does the Pt Use a Wheelchair?: No Stairs Stairs (FIM): 5 #of Steps: 8 Level of Assist: 5 1 Step (curb) (QC): 5 4 Steps (QC): 5 12 Steps (QC): 88 reciprocal pattern Balance Sitting Static: Normal Sitting Dynamic: Normal Standing Static: Normal Standing Dynamic: Normal Assessment/Needs 62 y.o. male, will benefit from short term skilled PT to address functional strength and mobility to improve cardiac function and to return to home at independent PLOF safely. 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 Goals Time Frame: Mar 27, 2018 Transfers (B,C,W/C) (FIM): 7 Sit to Lying (QC): 6 Lying-Sitting on Side/Bed(QC): 6 Sit to Stand (QC): 6 Rollin Roll Left to Right (QC): 6 Chair/Ktz-gn-Nnqgu Xfer(QC): 6 Car Transfer (QC): 6 Does the Patient Walk: Yes Gait (FIM): 7 Gait distance (FIM): 3=150 ft Distance: >300' Walk 10 feet (QC): 6 Walk 10ft-Uneven Surface(QC): 6 Walk 50ft with 2 Turns (QC): 6 Walk 150 ft (QC): 6 Gait Level of Assist: 7 Gait Assistive Device: None Stairs (FIM): 7 # of Steps: 12 1 Step (curb) (QC): 6 4 Steps (QC): 6 12 Steps (QC): 6 Stairs Level Of Assist: 7 Picking up an Object (QC): 6 PT Plan Treatment/Plan Treatment Plan: Continue Plan of Care Treatment Plan: Bed Mobility, Education, Functional Activity Jorge, Functional Strength, Group Therapy, Gait, Safety, Therapeutic Exercise, Transfers Treatment Duration: Mar 27, 2018 Frequency: At least 5 of 7 days/Wk (IRF) Estimated Hrs Per Day: 1.5 hours per day Patient and/or Family Agrees t: Yes Discharge Recommendations Therapy D/C Recommendations: Home Independently Time/GCodes Time In: 1520 Time Out: 1540 Total Billed Treatment Time: 20 Total Billed Treatment 1 visit EVModC 20 min G Codes Necessary: CHAYITO Rich PT Mar 11, 2018 15:52
[2018-03-11] MEDS ORDERED: METF750T2 PO (16:10)
[2018-03-11] MEDS ORDERED: FLU QUADRIvalent (5+ YOA) 2018-2019 (AFLURIA) 0.5 ML IM ONE (16:15)
[2018-03-11] MEDS ORDERED: ONDANSETRON 4 MG (ZOFRAN) ORAL DISSOLVE TAB PO PRN (20:30)
[2018-03-11] MEDS: SIMvastatin 20 MG (ZOCOR) TAB PO SCH (20:54)
[2018-03-11] MEDS: POLYETHYLENE GLYCOL 17 GM (MIRALAX) PACK PO SCH (20:54)
[2018-03-11] MEDS: SENNA W/DOCUSATE (SENOKOT S) TABLET PO SCH (20:56)
[2018-03-12 05:00] VITALS: BP 133/72
[2018-03-12] MEDS: metFORMIN XR 500 MG (GLUCOPHAGE XR) TAB PO SCH (06:07)
[2018-03-12 08:00] VITALS: BP 126/73
[2018-03-12] MEDS: SENNA W/DOCUSATE (SENOKOT S) TABLET PO SCH ×2 (08:20→19:50)
[2018-03-12] MEDS: lisINopril 20 MG (PRINIVIL) TABLET PO SCH (08:21)
[2018-03-12] MEDS: CLOPIDOGREL 75 MG (PLAVIX) TABLET PO SCH (08:21)
[2018-03-12] MEDS: meTOproloL SUCCINATE 50 MG (TOPROL XL) TAB PO SCH (08:21)
[2018-03-12] MEDS: ASPIRIN E.C. 81 MG (ECOTRIN) TAB PO SCH (08:21)
--- NOTE | 2018-03-12 11:08 | Physical Therapy Daily Note ---
PT Daily Note-Current Subjective Anxious to go home. States he is tired and gets fatigued with rx but feels really well Pain Numeric Pain Scale: 0-No Pain Mental Status Patient Orientation: Normal For Age Transfers Functional [place] Measure 0=Not Assessed/NA 4=Minimal Assistance 1=Total Assistance 5=Supervision or Setup 2=Maximal Assistance 6=Modified [place] 3=Moderate Assistance 7=Complete IndependenceIRFPAI Quality Coding Scale 6 Independent with activity with or without an assistive device 5 Patient requires set up or clean up by helper. Patient completes activity by themselves 4 Supervision or touching assist (CGA). [place] provide cues , steadying assist 3 The helper provides less than half the effort to complete the activity 2 The helper provides more than half the effort to complete the activity 1 Dependent. The helper does all the effort to complete an activity 7 Patient refused to complete or attempt activity 9 The patient did not perform the activity before the current illness or injury 88 Not attempted due to Medical conditions or safety concerns Transfers (B, C, W/C) (FIM): 6 Scootin Rollin Supine to/from Sit: 6 Sit to/from Stand: 6 uses heart pillow appropriately, no AD for gait Weight Bearing Right Lower Extremity: Right Weight Bearing/Tolerated Left Lower Extremity: Left Weight Bearing/Tolerated Gait Training Does the Patient Walk?: Yes Gait (FIM): 6 Distance (FIM): 3=150 ft (200x2) Gait Level of Assist: 6 Gait Persons Needed: 0 Gait Assistive Device: None Stair Training Stair Training: Handrails/: 2 handrails Stairs (FIM): 5 #of Steps: 4 Stairs: Pattern: Reciprocal Level of Assist: 5 household exception, pt. needs assist only b/c he has some fatigue with this activity Exercises Standing: Hip Abduction, Hamstring curls, Heel/toe raises, Marching, Sit to Stand Standing Reps: 12 NuStep Minutes: 12 NuStep Workload: 4 Assessment Current Status: Good Progress PT Senior Living Goals Senior Living Goals PT Senior Living Goals Time Frame: Mar 27, 2018 Transfers (B,C,W/C) (FIM): 7 Sit to Lying (QC): 6 Lying-Sitting on Side/Bed(QC): 6 Sit to Stand (QC): 6 Rollin Roll Left to Right (QC): 6 Chair/Cfq-cg-Zbtdv Xfer(QC): 6 Car Transfer (QC): 6 Does the Patient Walk: Yes Gait (FIM): 7 Gait distance (FIM): 3=150 ft Distance: >300' Walk 10 feet (QC): 6 Walk 10ft-Uneven Surface(QC): 6 Walk 50ft with 2 Turns (QC): 6 Walk 150 ft (QC): 6 Gait Level of Assist: 7 Gait Assistive Device: None Stairs (FIM): 7 # of Steps: 12 1 Step (curb) (QC): 6 4 Steps (QC): 6 12 Steps (QC): 6 Stairs Level Of Assist: 7 Picking up an Object (QC): 6 PT Plan Treatment/Plan Treatment Plan: Continue Plan of Care Treatment Plan: Bed Mobility, Education, Functional Activity Jorge, Functional Strength, Group Therapy, Gait, Safety, Therapeutic Exercise, Transfers Treatment Duration: Mar 27, 2018 Frequency: At least 5 of 7 days/Wk (IRF) Estimated Hrs Per Day: 1.5 hours per day Patient and/or Family Agrees t: Yes Safety Risks/Education Patient Education: Gait Training, Transfer Techniques, Steps Teaching Recipient: Patient Teaching Methods: Demonstration, Discussion Response to Teaching: Verbalize Understanding, Return Demonstration, Reinforcement Needed Time/GCodes Time In: 1000 Time Out: 1100 Total Billed Treatment Time: 60 Total Billed Treatment 1,EX25m,GT15m,FA20m G Codes Necessary: MICHA Maurer PTA Mar 12, 2018 11:08
--- NOTE | 2018-03-12 11:12 | PM&R Post Admission Assessment ---
Post Admission Physician Asses Date seen by provider: Mar 12, 2018 Time seen by provider: 08:00 The preadmission screen agrees with the post admission assessment that the patient is a good candidate for inpatient rehabilitation. The patient will have a comprehensive program of inpatient rehabilitation with a goal of maximizing level of functional independence prior to discharge home with [facility]. The patient will have PT/OT ninety minutes per day, each discipline , five days a week for 7-10-days for gait, strengthening, conditioning, balance , ADLs, any patient/family/caregiver training as necessary. Speech therapy to do cognitive assessment and treat as indicated. Rehabilitation nursing to assist with bowel, bladder, skin, wound care, medication administration, pain management. Foundation Drill Operator Helper to assist with discharge planning, community reentry. SCD's for DVT prophylaxis. He appears to be well motivated to participate in three hours of therapy a day. He should be able to tolerate three hours of therapy a day from a medical and surgical standpoint. He should benefit from the three hours of therapy a day. He has a reasonable discharge plan, reasonable discharge rehabilitation goals and a supportive family. He has various comorbidities that need to be closely monitored with medications and treatments adjusted on a daily basis as needed. These include: DM Tobaccoism Barriers to discharge for this patient who had been independent prior to this are for him to be modified independent to supervision for ADLs and mobility skills prior to discharge home with [facility], so as to lessen the burden of the caregivers. He is and lives alone.He has no current Medical insurance and is followed by the local [facility] Risks for this patient include: 1. Fall 2. Fracture 3. DVT 4. Pulmonary embolism 5. Wound infection 6. Skin breakdown 7. Contractures 8. Poorly controlled pain 9. Urinary retention 10. UTI 11. Respiratory infection 12. Aspiration 13. Poorly controlled DM Estimated Length of Stay: 7-10 days Prognosis: Rehab prognosis appears good for goal of discharge home with [facility] modified independent to supervision for ADLs and mobility skills. C code 09 Etiologic DX Atherosclerosis of j[place] coronary artery with Stable angina pectoris Date Identified: Mar 12, 2018 Time Identified: 08:00 Action Plan to Resolve CSMI: Current transfer meds reviewed General: Alert, Oriented X3, Cooperative, No Acute Distress HEENT: Atraumatic, PERRLA, EOMI, Mucous Memb Moist/[place] Neck: Supple, No JVD Lungs: Clear to Auscultation Heart: Regular Rate Abdomen: Normal Bowel Sounds, Soft, No Tenderness, Other (c/o constipation) Extremities: No Edema Skin: Other (Sternotomy site Clean and dry) Neuro: Other (Strength $/5 grossly Cognition and sensation intact) Psych/Mental Status: Mental Status NL NATALI DAVENPORT MD Mar 12, 2018 11:12
--- NOTE | 2018-03-12 11:35 | HISTORY AND PHYSICAL ---
DATE OF SERVICE: ADMISSION HISTORY AND PHYSICAL CHIEF COMPLAINT: Constipation and nausea. HISTORY OF PRESENT ILLNESS: The patient is a 62-year-old male, who works repair department supervisor at [employer], has no health care insurance and lives alone as he is , who had been independent, but was referred to Dr. Savage, cardiothoracic surgery at [facility] for further evaluation and treatment. The patient underwent a CABG. He has a little home support and needed some assistance for his ADLs and mobility skills postop and was referred to inpatient rehabilitation at [facility]. The case was discussed with Dr. Sarah by Dr. Savage on date of transfer. Currently, he is standby assist for gait without gait aid. He is standby assist for transfers and bed mobility. He has sternotomy precautions. He is modified independent for eating, set up for grooming, min assist for upper body dressing, mod assist for lower body dressing and bathing, min assist for toileting. His nausea has resolved since the date of admission, but he still complains of constipation. His meds have been adjusted. PAST MEDICAL HISTORY: Coronary artery disease, diabetes mellitus and tobaccoism. PAST SURGICAL HISTORY: As per above status post CABG x 5. ALLERGIES: No known medication allergies. FAMILY HISTORY: Noncontributory. SOCIAL HISTORY: Essentially as per above, he lives in [place], Dr. Friedman, cardiology, Dr. Kramer at [facility] is PCP. REVIEW OF SYSTEMS: The 10-point review of systems significant for some incisional pain, mild weakness, nausea resolved and postop constipation. MEDICATIONS: Plavix 75 mg p.o. daily, Toprol-XL 50 mg p.o. daily, ASA 81 mg p.o. daily, lisinopril 20 mg p.o. daily, metformin 750 mg p.o. daily, simvastatin 20 mg p.o. at bedtime, Senokot-S one tablet p.o. b.i.d., MiraLax 17 grams p.o. at bedtime, Zofran 4 mg p.o. q.6 hours p.r.n. nausea and vomiting, hydrocodone/APAP 5 one to two tablets p.o. q.4 hours p.r.n. moderate pain. PHYSICAL EXAMINATION: GENERAL: Significant for male appearing his stated age, alert and oriented, lying in bed, no acute distress, complaining of constipation. VITAL SIGNS: He is afebrile, pulse is 72, respirations 19, blood pressure 126/73 and O2 sat 96% on room air. HEENT: Vision, speech and hearing grossly intact. No oral lesion is noted. NECK: Supple without mass. HEART: Regular rhythm. CHEST: Clear. Sternotomy site is clean, dry and no drainage. ABDOMEN: Soft, nontender and bowel sounds present. EXTREMITIES: No leg edema, no calf tenderness. MUSCULOSKELETAL: He has functional active range of motion in all 4 limbs. NEUROLOGIC: Strength is 4/5 grossly bilaterally taking into consideration his sternotomy precautions upper limbs. He is reported to be continent of bowel and bladder. Sensation is grossly intact to touch. He does wear glasses. Hearing is functional. Cognition is grossly intact. IMPRESSION: 1. General debilitation status post CABG with [facility] for atherosclerosis of [place] coronary artery of [place] heart with stable angina pectoris, Dr. Savage at [facility]. 2. Type 2 diabetes mellitus. 3. Tobaccoism. 4,DVT prophylaxis SCDS PLAN: The patient will have a comprehensive program of inpatient rehabilitation with goal of maximizing level of functional independence prior to discharge home with home health care. The patient will have PT and OT 90 minutes per day each discipline, 5 days a week for 7 to 10 days with the above goals in mind. Please see post admission physician evaluation, which is a separate document for details of plan of care. Speech therapy to do cognitive assessment and treat as indicated. Rehabilitation nursing to assist with bowel, bladder, skin, wound care, medication administration and pain management. Sternotomy precautions and adjust medications for constipation done, Zofran ordered for nausea and resolved. Follow up with [facility] physician and Dr. Friedman as per their schedule. Follow up with Dr. Savage upon discharge from rehab unit. Monitor Accu-Cheks and adjust medications as necessary. ESTIMATED LENGTH OF STAY: 7 to 10 days. PROGNOSIS: Rehab prognosis appears good for goal of discharging home with home health care, modified independent to supervision for ADLs and mobility skills. DIET: Carb consistent. CODE STATUS: Full code. Job ID: [id number] DocumentID: [id number] Dictated Date: 03/12/2018 11:02:[address] Date: 03/12/2018 11:34:56 Dictated By: NATALI SARAH MD [facility]
--- NOTE | 2018-03-12 13:23 | Consultation-Cardiology ---
HPI-Cardiology Cardiology Consultation Date of Consultation 03/12/18 Date of Admission Time Seen by Provider: 13:20 Indication: coronary artery disease HPI 62 years old gentleman with history of coronary artery disease, had a cardiac catheterization earlier this month, transferred to [facility] and had CABG [address] Mike Savage, recovering slowly. Transferred back for physical therapy. Upper my evaluation was lengthened down in bed, feeling well. Denied any chest pain, no shortness of breath. No palpitation, no syncopal or near syncopal episodes. Home Medications & Allergies Allergies: Coded Allergies: No Known Drug Allergies (Unverified , 07/04/14) Home Medication List Reviewed: Yes RIL-Sykapl-Viatyz Hx Patient Social History Marital Status: single Alcohol Use: Past History Recreational Drug Use: No Smoking Status: Former Smoker Type Used: Cigarettes Recent Foreign Travel: No Recent Infectious Disease Expo: No Recent Hopitalizations: Yes (cabg) Physical Abuse Screen: No Sexual Abuse: No Past Medical History Past medical history as described below Family Medical History Family History: Cardiovascular disease G8 BROTHER FH: liver disease G8 SISTER FH: pancreatic cancer 19 FATHER 19 MOTHER Pancreatic Review of Systems Constitutional: see HPI, malaise EENTM: see HPI, no symptoms reported Respiratory: see HPI; No cough, No dyspnea on exertion, No hemoptysis, No orthopnea, No phlegm, No short of breath, No stridor, No wheezing, No other Cardiovascular: see HPI; No chest pain, No edema, No Hx of Intervention, No palpitations, No syncope, No vascular heart diseas, No other Gastrointestinal: no symptoms reported, see HPI Genitourinary: no symptoms reported, see HPI Musculoskeletal: no symptoms reported, see HPI Skin: no symptoms reported, see HPI Psychiatric/Neurological: No Symptoms Reported, See HPI Reviewed Test Results Reviewed Test Results Lab Laboratory Tests Test 03/11/18 15:43 03/11/18 20:12 03/12/18 06:06 03/12/18 10:54 Range/Units Glucometer 135 H 90 108 121 H 70-110 MG/DL Physical Exam Vital Signs Vital Signs - First Documented 03/11/18 15:25 Temp 97.2 Pulse 77 Resp 18 B/P (MAP) 109/72 (84) Pulse Ox 96 O2 Delivery Room Air Capillary Refill : Height, Weight, BMI Height: 6'1.00" Weight: 212lbs. 5.0oz. 96.700508vd; 28.0 BMI Method:Stated General Appearance: No Apparent Distress, WD/WN Eyes: Bilateral Eye Normal Inspection, Bilateral Eye PERRL, Bilateral Eye EOMI HEENT: PERRL/EOMI, TMs Normal, Normal ENT Inspection, Pharynx Normal Neck: Full Range of Motion, Normal Inspection, Non Tender, Supple, Carotid Bruit Respiratory: Chest Non Tender, Lungs Clear, Normal Breath Sounds, No Accessory Muscle Use, No Respiratory Distress Cardiovascular: Regular Rate, Rhythm, No Edema, No Gallop, No JVD, No Murmur, Normal Peripheral Pulses Gastrointestinal: Normal Bowel Sounds, No Organomegaly, No Pulsatile Mass, Non Tender, Soft Back: Normal Inspection, No CVA Tenderness, No Vertebral Tenderness Extremity: Normal Capillary Refill, Normal Inspection, Normal Range of Motion, Non Tender, No Calf Tenderness, No Pedal Edema Neurologic/Psychiatric: Alert, Oriented x3, No Motor/Sensory Deficits, Normal Mood/Affect Skin: Normal Color, Warm/Dry Lymphatic: No Adenopathy A/P-Cardiology Admission Diagnosis Coronary artery disease Hypertension Hyperlipidemia Diabetes mellitus Assessment/Plan Coronary artery disease, status post CABG [address] Mike Savage on March 05, 2018 using BAETTY to LAD, vein graft to diagonal artery, ramus intermedius, posterior lateral branch of the circumflex artery and vein graft to the right coronary artery, recovering well. Doing well. Continue to monitor Generalized weakness, loss of energy. Receiving physical therapy next Hypertension, restart home medication monitor Hyperlipidemia, restart statin and monitor Diabetes mellitus, followed and managed by primary care physician Tobaccoism, patient has stopped smoking after his surgery. Educated on smoking cessation Family history of heart disease Clinical Quality Measures DVT/VTE Risk/Contraindication: Risk Factor Score Per Nursin RFS Level Per Nursing on Admit: 4+=Very High SHIVA BOYLE MD Mar 12, 2018 13:23
--- NOTE | 2018-03-12 14:06 | Occupational Therapy Eval ---
OT Evaluation-General/PLF Medical Diagnosis Admission Date Mar 11, 2018 at 15:18 Medical Diagnosis: CABG x 5 Onset Date: Mar 05, 2018 Therapy Diagnosis Therapy Diagnosis: Weakness Height/Weight Height (Feet): 6 Height (Inches): 1.00 Weight (Pounds): 212 Weight (Ounces): 5.0 Precautions Precautions/Isolations: Fall Prevention, Standard Precautions Safety Interventions: None Weight Bear Status Weight Bearing Restriction: Weight Bearing/Tolerated Referral Physician: Tyrel Referral Reason: Activity Tolerance, Self Care, Evaluation/Treatment, Strengthening/ROM Medical History Pertinent Medical History: CABG, CAD, DM, HTN, Smoking Additional Medical History Pt. began to have chest pains. Went to Sustained CABG. Reviewed History: Yes Social History Home: Single Level Current Living Status: Alone Entry Into Home: Ramp, Stairs With Railing Steps Into Home: 2 ADL-Prior Level of Function ADL PLOF Comments Pt. was independent with daily tasks previous to surgery. DME/Equipment: Tub/Shower Pt. lives in [place] Occupation: Pt. works supervisor delivery department at [employer] [address] Self: Yes OT Current Status Subjective No pain reported. Pt. states, "I just get tired easily." Appearance Pt. up in chair. Agrees to work with OT. Mental Status/Objective Patient Orientation: Person, Place, Time, Situation Current Hand Dominance: Right Upper Extremity ROM WFL Sternal precautions. ADL-Treatment Functional [place] Measure 0=Not Assessed/NA 4=Minimal Assistance 1=Total Assistance 5=Supervision or Setup 2=Maximal Assistance 6=Modified [place] 3=Moderate Assistance 7=Complete IndependenceIRFPAI Quality Coding Scale 6 Independent with activity with or without an assistive device 5 Patient requires set up or clean up by helper. Patient completes activity by themselves 4 Supervision or touching assist (CGA). [place] provide cues , steadying assist 3 The helper provides less than half the effort to complete the activity 2 The helper provides more than half the effort to complete the activity 1 Dependent. The helper does all the effort to complete an activity 7 Patient refused to complete or attempt activity 9 The patient did not perform the activity before the current illness or injury 88 Not attempted due to Medical conditions or safety concerns Eating (FIM): 7 Eating (QC): 6 Grooming (FIM): 5 Oral Hygiene (QC): 5 Bathing (FIM): 5 Shower/Bathe Self (QC): 5 Upper Body Dressing (FIM): 5 Upper Body Dressing (QC): 5 Lower Body Dressing (FIM): 5 Lower Body Dressing (QC): 5 On/Off Footwear (QC): 5 Toileting (FIM): 5 Toileting Hygiene (QC): 5 Transfers (B, C, W/C) (FIM): 5 Toilet/Commode Transfer (FIM): 5 Toilet Transfer (QC): 5 Shower Transfer (FIM): 5 Other Treatments Pt. completed shower and dressing with SBA. Pt. reports being fatigued after. Able to stand at sink to brush hair and teeth. All needs met in room. Education OT Patient Education: Correct positioning, Modified ADL techniques, Progress toward Goal/Update tx plan, Purpose of tx/functional activities, Reviewed precautions, Rehab process, Transfer techniques Teaching Recipient: Patient Teaching Methods: Demonstration, Discussion Response to Teaching: Verbalize Understanding, Return Demonstration OT Short Term Goals Short Term Goals 1=Demonstrate adherence to instructed precautions during ADL tasks. 2=Patient will verbalize/demonstrate understanding of assistive devices/ modifications for ADL. 3=Patient will improve strength/tolerance for activity to enable patient to perform ADL's. OT Mosaic Technician Goals Mosaic Technician Goals Time Frame: Mar 26, 2018 Eating (FIM): 7 Eating (QC): 6 Groomin Oral Hygiene (QC): 6 Bathing(FIM): 6 Shower/Bathe Self (QC): 6 Upper Body Dressing(FIM): 6 Upper Body Dressing (QC): 6 Lower Body Dressing(FIM): 6 Lower Body Dressing (QC): 6 On/Off Footwear (QC): 6 Toileting(FIM): 6 Toileting Hygiene (QC): 6 Transfers (B,C,W/C) (FIM): 6 Toilet/Commode Transfer(FIM): 6 Toilet/Commode Transfer (QC): 6 Shower Transfer(FIM): 6 Additional Goals: 1-Demonstrate ADL Tasks, 2-Verbalize Understanding, 3- ImproveStrength/Jorge 1=Demonstrate adherence to instructed precautions during ADL tasks. 2=Patient will verbalize/demonstrate understanding of assistive devices/ modifications for ADL. 3=Patient will improve strength/tolerance for activity to enable patient to perform ADL's. OT Education/Plan Problem List/Assessment Assessment: Decreased Activ Tolerance, Impaired I ADL's, Impaired Self-Care Skills Discharge Recommendations Plan/Recommendations: Continue POC Therapy D/C Recommendations: Home Independently Equpiment Recommendations-D/C: Bath Chair Treatment Plan/Plan of Care Treatment,Training & Education: Yes Patient would benefit from OT for education, treatment and training to promote independence in ADL's, mobility, safety and/or upper extremity function for ADL' s. Plan of Care: ADL Retraining, Functional Mobility, Group Exercise/Act as Ind Treatment Duration: Mar 26, 2018 Frequency: At least 5 of 7 days/Wk (IRF) Estimated Hrs Per Day: 1.5 hours per day Agreement: Yes Rehab Potential: Good Time/GCodes Start Time: 08:30 Stop Time: 09:30 Total Time Billed (hr/min): 60 Billed Treatment Time 1, EVL x 15minutes, ADL x 45minutes FRANCINE SILVA OT Mar 12, 2018 14:06
--- NOTE | 2018-03-12 14:12 | Occupational Ther Daily Note ---
OT Current Status-Daily Note Subjective No pain reported. Appearance Pt. up in chair. Agrees to work with OT. Mental Status/Objective Patient Orientation: Person, Place, Time, Situation Functional [place] Measure 0=Not Assessed/NA 4=Minimal Assistance 1=Total Assistance 5=Supervision or Setup 2=Maximal Assistance 6=Modified [place] 3=Moderate Assistance 7=Complete [place] ADL-Treatment Functional [place] Measure 0=Not Assessed/NA 4=Minimal Assistance 1=Total Assistance 5=Supervision or Setup 2=Maximal Assistance 6=Modified [place] 3=Moderate Assistance 7=Complete IndependenceIRFPAI Quality Coding Scale 6 Independent with activity with or without an assistive device 5 Patient requires set up or clean up by helper. Patient completes activity by themselves 4 Supervision or touching assist (CGA). [place] provide cues , steadying assist 3 The helper provides less than half the effort to complete the activity 2 The helper provides more than half the effort to complete the activity 1 Dependent. The helper does all the effort to complete an activity 7 Patient refused to complete or attempt activity 9 The patient did not perform the activity before the current illness or injury 88 Not attempted due to Medical conditions or safety concerns Other Treatment Pt. completed 4 bilateral UE exercises x 15 reps each with yellow theraband, within parameters of sternal precautions, in all planes. Pt. tolerated well with several rest breaks. Completed exercises overall to increase overall strength and independence with daily tasks, as well as endurance. Pt. given handout and encouraged to do exercises on his own. Education OT Patient Education: Correct positioning, Exercise program, Home exercise program, Progress toward Goal/Update tx plan, Purpose of tx/functional activities, Reviewed precautions, Rehab process, Transfer techniques Teaching Recipient: Patient Teaching Methods: Demonstration, Discussion Response to Teaching: Verbalize Understanding, Return Demonstration OT Short Term Goals Short Term Goals 1=Demonstrate adherence to instructed precautions during ADL tasks. 2=Patient will verbalize/demonstrate understanding of assistive devices/ modifications for ADL. 3=Patient will improve strength/tolerance for activity to enable patient to perform ADL's. OT Halfway Goals Halfway Goals Time Frame: Mar 26, 2018 Eating (FIM): 7 Eating (QC): 6 Groomin Oral Hygiene (QC): 6 Bathing(FIM): 6 Shower/Bathe Self (QC): 6 Upper Body Dressing(FIM): 6 Upper Body Dressing (QC): 6 Lower Body Dressing(FIM): 6 Lower Body Dressing (QC): 6 On/Off Footwear (QC): 6 Toileting(FIM): 6 Toileting Hygiene (QC): 6 Transfers (B,C,W/C) (FIM): 6 Toilet/Commode Transfer(FIM): 6 Toilet/Commode Transfer (QC): 6 Shower Transfer(FIM): 6 Additional Goals: 1-Demonstrate ADL Tasks, 2-Verbalize Understanding, 3- ImproveStrength/Jorge 1=Demonstrate adherence to instructed precautions during ADL tasks. 2=Patient will verbalize/demonstrate understanding of assistive devices/ modifications for ADL. 3=Patient will improve strength/tolerance for activity to enable patient to perform ADL's. OT Education/Plan Problem List/Assessment Assessment: Decreased Activ Tolerance, Decreased UE Strength, Impaired I ADL's , Impaired Self-Care Skills Discharge Recommendations Plan/Recommendations: Continue POC Therapy D/C Recommendations: Home Independently Treatment Plan/Plan of Care Treatment,Training & Education: Yes Patient would benefit from OT for education, treatment and training to promote independence in ADL's, mobility, safety and/or upper extremity function for ADL' s. Plan of Care: ADL Retraining, Functional Mobility, Group Exercise/Act as Ind Treatment Duration: Mar 26, 2018 Frequency: At least 5 of 7 days/Wk (IRF) Estimated Hrs Per Day: 1.5 hours per day Agreement: Yes Rehab Potential: Good Time/GCodes Start Time: 12:30 Stop Time: 12:50 Total Time Billed (hr/min): 20 Billed Treatment Time 1, Ex FRANCINE SILVA OT Mar 12, 2018 14:12
--- NOTE | 2018-03-12 14:19 | Physical Therapy Daily Note ---
PT Daily Note-Current Subjective Pt. agreeable to Rx. States he feels he has made progress and is anxious to go home. Pain Numeric Pain Scale: 0-No Pain Mental Status Patient Orientation: Normal For Age Transfers Functional [place] Measure 0=Not Assessed/NA 4=Minimal Assistance 1=Total Assistance 5=Supervision or Setup 2=Maximal Assistance 6=Modified [place] 3=Moderate Assistance 7=Complete IndependenceIRFPAI Quality Coding Scale 6 Independent with activity with or without an assistive device 5 Patient requires set up or clean up by helper. Patient completes activity by themselves 4 Supervision or touching assist (CGA). [place] provide cues , steadying assist 3 The helper provides less than half the effort to complete the activity 2 The helper provides more than half the effort to complete the activity 1 Dependent. The helper does all the effort to complete an activity 7 Patient refused to complete or attempt activity 9 The patient did not perform the activity before the current illness or injury 88 Not attempted due to Medical conditions or safety concerns Weight Bearing Right Lower Extremity: Right Weight Bearing/Tolerated Left Lower Extremity: Left Weight Bearing/Tolerated PT Prison Goals Prison Goals PT Prison Goals Time Frame: Mar 27, 2018 Transfers (B,C,W/C) (FIM): 7 Sit to Lying (QC): 6 Lying-Sitting on Side/Bed(QC): 6 Sit to Stand (QC): 6 Rollin Roll Left to Right (QC): 6 Chair/[id number] Xfer(QC): 6 Car Transfer (QC): 6 Does the Patient Walk: Yes Gait (FIM): 7 Gait distance (FIM): 3=150 ft Distance: >300' Walk 10 feet (QC): 6 Walk 10ft-Uneven Surface(QC): 6 Walk 50ft with 2 Turns (QC): 6 Walk 150 ft (QC): 6 Gait Level of Assist: 7 Gait Assistive Device: None Stairs (FIM): 7 # of Steps: 12 1 Step (curb) (QC): 6 4 Steps (QC): 6 12 Steps (QC): 6 Stairs Level Of Assist: 7 Picking up an Object (QC): 6 PT Plan Treatment/Plan Treatment Plan: Bed Mobility, Education, Functional Activity Jorge, Functional Strength, Group Therapy, Gait, Safety, Therapeutic Exercise, Transfers Treatment Duration: Mar 27, 2018 Frequency: At least 5 of 7 days/Wk (IRF) Estimated Hrs Per Day: 1.5 hours per day Patient and/or Family Agrees t: Yes MICHA EDWARD PTA Mar 12, 2018 14:19
--- NOTE | 2018-03-12 14:59 | Therapy Group Daily Note ---
Therapy Daily Group Note Patient Education Topic Fall Prevention, Other List Below (Rehab orientation) Exercises LE Seated Exercise, UE Exercise Other/Notes Pt was an active participant in OT/PT group. He introduced himself and shared his favorite thing about michaela. He contributed to education/discussion on falls and fall prevention and identified ways to make his environment safer. He also led the group in a seated UE or LE exercise. He walked back to his room with SBNader, EZEW and was left up in recliner, all needs met. Start Time: 13:00 Stop Time: 14:15 Total Billed Treatment Time: 75 Total Billed Treatment 1,GRP MICHA EDWARD LOADING UNIT OPERATOR CRIMPING Mar 12, 2018 14:59
--- NOTE | 2018-03-12 15:08 | ST Cognitive Linguistic Eval ---
Speech Evaluation-General Medical Diagnosis CABG x 5 Onset Date: Mar 05, 2018 Therapy Diagnosis Therapy Diagnosis: Cognition Precautions Precautions/Isolations: Fall Prevention, Standard Precautions Referral Referring Physician: Dr. Sarah Reason for Referral: Evaluation/Treatment Medical History Pertinent Medical History: CABG, CAD, DM, HTN, Smoking Reviewed History: Yes Social History Current Living Status: Alone Speech PLF-Current Status Prior Level of Function Pt independent Subjective Pt in bed. Pleasant and cooperative. Pain Numeric Pain Scale: 0-No Pain Language Eval: Auditory Comprehends Simple Yes/No Ques: Functional Follows 1-Step Commands: Functional Follows Complex Directions: Functional Follows General Conversations: Functional Language Eval: Verbal Language Completes Spontaneous Greeting: Functional Produces Auto, Serial Info: Functional Word Finding: Functional Requests Basic Needs: Functional States Basic Personal Info: Functional Expresses Complex Ideas: Functional Language Evaluation: Reading NT Cognitive Patient Orientation Pt oriented x 3. Objective Cognitive Domain Attention: WNL Memory: WNL Problem Solving: Functional Objective Results [facility] Cognitive/Communication Screen was administered to assess cognitive- linguistic functioning. Results are as follows: Memory - 3 word recall was 3/3 correct for immediate; 3/3 correct for delayed and 3/3 correct for remote delay. Organization/sequencing - 4/4 correct. Problem Solving - Simple 4/4 correct; Abstract/complex 2/2 correct and Comparisons 4/5 correct. Speech/language WNL Oral Motor/Speech Production WNL Impression Functional cognitive-linguistic skills. Communication/Social Cognition Comprehension: 7 Expression: 7 Social Interaction: 7 Problem Solvin Memory: 7 Speech Patient Assess Expression of Ideas/Wants: Expression (4) Understanding Verbal Content: Understands (4) Brief Interview-Mental Status: Yes Repetition of Three Words: Three (3) Temporal Orientation: Year: Correct (3) Temporal Orientation: Month: Accurate within 5 days(2) Temporal Orientation: Day: Correct (1) Recall : Wear to say "Sock": Yes, no cue required (2) Recall : Color: Yes, no cue required (2) Recall : Bed: Yes, no cue required (2) Speech Short Term Goals Short Term Goals Short Term Goals no goals established as skilled ST not indicated. Speech Supervisor [employer] Goals Supervisor [employer] Goals no goals established as skilled ST not indicated. Speech-Plan Patient/Family Goals Patient/Family Goals: to return home Treatment Plan Speech Therapy Treatment Plan: Discontinue ST Pt does not require skilled ST Frequency: Modified Program (IRF) (0) Estimated Hrs Per Day: Other (0) Rehab Potential: Good Barriers to Learning: None identified Pt/Family Agrees to Plan: Yes Safety Risks/Education Teaching Recipient: Patient Teaching Methods: Discussion Response to Teaching: Verbalize Understanding Time Speech Therapy Time In: 11:30 Speech Therapy Time Out: 12:00 Total Billed Time: 30 Billed Treatment Time 1, SPSNDCOMP KYA Solano Mar 12, 2018 15:08
[2018-03-12 17:50] VITALS: BP 124/74
[2018-03-12] MEDS: POLYETHYLENE GLYCOL 17 GM (MIRALAX) PACK PO SCH (19:50)
[2018-03-12] MEDS: SIMvastatin 20 MG (ZOCOR) TAB PO SCH (19:50)
[2018-03-13 05:25] VITALS: BP 110/68
[2018-03-13] MEDS: metFORMIN XR 500 MG (GLUCOPHAGE XR) TAB PO SCH (06:06)
[2018-03-13 06:22] LABS: HEMOGLOBIN 11.8 G/DL (13.3-17.7); MEAN PLATELET VOLUME 9.5 FL (7.4-10.4); RED BLOOD COUNT 3.81 10^6/uL (4.35-5.85); WHITE BLOOD COUNT 14.6 10^3/uL (4.3-11.0)
[2018-03-13 06:36] LABS: ALANINE AMINOTRANSFERASE 22 U/L (0-55); ALBUMIN 3.4 GM/DL (3.2-4.5); ALKALINE PHOSPHATASE 71 U/L (40-136); BILIRUBIN,TOTAL 0.9 MG/DL (0.1-1.0); BUN/CREATININE RATIO 25; CALCIUM 8.7 MG/DL (8.5-10.1); CARBON DIOXIDE 21 MMOL/L (21-32); CHLORIDE 108 MMOL/L (98-107); CREATININE SERUM 0.76 MG/DL (0.60-1.30); GFR ESTIMATED > 60; GLUCOSE 125 MG/DL (70-105); POTASSIUM 4.1 MMOL/L (3.6-5.0); SODIUM 137 MMOL/L (135-145)
[2018-03-13] MEDS ORDERED: MAGNESIUM CITRATE 300 ML BTL PO ONE (07:00)
[2018-03-13] MEDS: meTOproloL SUCCINATE 50 MG (TOPROL XL) TAB PO SCH (09:05)
[2018-03-13] MEDS: SENNA W/DOCUSATE (SENOKOT S) TABLET PO SCH ×2 (09:05→19:31)
[2018-03-13] MEDS: CLOPIDOGREL 75 MG (PLAVIX) TABLET PO SCH (09:05)
[2018-03-13] MEDS: ASPIRIN E.C. 81 MG (ECOTRIN) TAB PO SCH (09:05)
[2018-03-13] MEDS: lisINopril 20 MG (PRINIVIL) TABLET PO SCH (09:05)
--- NOTE | 2018-03-13 11:16 | Cardiology Progress Note ---
Subjective Date Seen by Provider: Mar 13, 2018 Time Seen by Provider: 11:14 Subjective/Events-last exam Patient is in bed, feeling better, no new complaint Review of Systems General: No Chills, No Night Sweats; Fatigue; No Malaise, No Appetite, No Other HEENT: No Head Aches, No Visual Changes, No Eye Pain, No Ear Pain, No Dysphasia , No Sinus Congestion, No Post Nasal Drip, No Sore Throat, No Other Pulmonary: No Dyspnea, No Cough, No Pleuritic Chest Pain, No Other Cardiovascular: No: Chest Pain, Palpitations, Orthopnea, Paroxysmal Noc. Dyspnea, Edema, Lt Headedness, Other Objective-Cardiology Exam Last Set of Vital Signs Vital Signs 03/13/18 05:25 Temp 97.6 Pulse 63 Resp 20 B/P (MAP) 110/68 (82) Pulse Ox 95 O2 Delivery Room Air Capillary Refill : I&O Intake and Output 03/13/18 00:00 Intake Total 1900 ml Balance 1900 ml Intake Oral 1900 ml # Voids 4 General: Alert, Oriented X3, Cooperative, No Acute Distress HEENT: Atraumatic, PERRLA, EOMI, Mucous Memb Moist/[place] Neck: Supple, No JVD Lungs: Clear to Auscultation Heart: Regular Rate Abdomen: Normal Bowel Sounds, Soft, No Tenderness, Other (c/o constipation) Extremities: No Edema Skin: Other (Sternotomy site Clean and dry) Neuro: Other (Strength $/5 grossly Cognition and sensation intact) Psych/Mental Status: Mental Status NL Results Lab Laboratory Tests 03/13/18 06:00 A/P-Cardiology Admission Diagnosis Coronary artery disease Hypertension Hyperlipidemia Diabetes mellitus Assessment/Plan Coronary artery disease, status post CABG [address] Mike Savage on March 05, 2018 using BEATTY to LAD, vein graft to diagonal artery, ramus intermedius, posterior lateral branch of the circumflex artery and vein graft to the right coronary artery, recovering well. Doing well. Continue to monitor Generalized weakness, loss of energy. Receiving physical therapy next Hypertension, restart home medication monitor Hyperlipidemia, restart statin and monitor Diabetes mellitus, followed and managed by primary care physician Tobaccoism, patient has stopped smoking after his surgery. Educated on smoking cessation Family history of heart disease Clinical Quality Measures DVT/VTE Risk/Contraindication: Risk Factor Score Per Nursin RFS Level Per Nursing on Admit: 4+=Very High SHIVA BOYLE MD Mar 13, 2018 11:16
--- NOTE | 2018-03-13 12:11 | Occupational Ther Daily Note ---
OT Current Status-Daily Note Subjective Pt seen in room, up in bed, agreeable to OT. No pain mentioned. Appearance Alert, cooperative Mental Status/Objective Functional [place] Measure 0=Not Assessed/NA 4=Minimal Assistance 1=Total Assistance 5=Supervision or Setup 2=Maximal Assistance 6=Modified [place] 3=Moderate Assistance 7=Complete [place] ADL-Treatment Functional [place] Measure 0=Not Assessed/NA 4=Minimal Assistance 1=Total Assistance 5=Supervision or Setup 2=Maximal Assistance 6=Modified [place] 3=Moderate Assistance 7=Complete IndependenceIRFPAI Quality Coding Scale 6 Independent with activity with or without an assistive device 5 Patient requires set up or clean up by helper. Patient completes activity by themselves 4 Supervision or touching assist (CGA). [place] provide cues , steadying assist 3 The helper provides less than half the effort to complete the activity 2 The helper provides more than half the effort to complete the activity 1 Dependent. The helper does all the effort to complete an activity 7 Patient refused to complete or attempt activity 9 The patient did not perform the activity before the current illness or injury 88 Not attempted due to Medical conditions or safety concerns Other Treatment Pt moved from supine to sit EOB, then sits to stand without help, following sternal precautions. He walked with SBA to gym, with no LOB. Once in gym, he needed a recovery break due to fatigue and a little SOA. Pt education on energy conservation, especially to pace himself and take recovery breaks before he gets too exhausted. pt verbalized understanding. He did 10 minutes bilat UE exercise on arm bike at no resistance, following sternal precautions, and took recovery breaks about every 2 to 3 minutes. To increase UE strength and to increase overall activity tolerance, as well as to apply energy conservation techniques. Pt walked back to room with SBA and got into bed without help. Pt left up in bed, all needs met. Also discussed pet visitation process with pt and nurse - he would like his indoor dog to come visit. Education OT Patient Education: Energy conservation, Progress toward Goal/Update tx plan , Purpose of tx/functional activities Teaching Recipient: Patient Teaching Methods: Discussion Response to Teaching: Verbalize Understanding, Return Demonstration OT Short Term Goals Short Term Goals 1=Demonstrate adherence to instructed precautions during ADL tasks. 2=Patient will verbalize/demonstrate understanding of assistive devices/ modifications for ADL. 3=Patient will improve strength/tolerance for activity to enable patient to perform ADL's. OT Half-Way Goals Half-Way Goals Time Frame: Mar 26, 2018 Eating (FIM): 7 Eating (QC): 6 Groomin Oral Hygiene (QC): 6 Bathing(FIM): 6 Shower/Bathe Self (QC): 6 Upper Body Dressing(FIM): 6 Upper Body Dressing (QC): 6 Lower Body Dressing(FIM): 6 Lower Body Dressing (QC): 6 On/Off Footwear (QC): 6 Toileting(FIM): 6 Toileting Hygiene (QC): 6 Transfers (B,C,W/C) (FIM): 6 Toilet/Commode Transfer(FIM): 6 Toilet/Commode Transfer (QC): 6 Shower Transfer(FIM): 6 Additional Goals: 1-Demonstrate ADL Tasks, 2-Verbalize Understanding, 3- ImproveStrength/Jorge 1=Demonstrate adherence to instructed precautions during ADL tasks. 2=Patient will verbalize/demonstrate understanding of assistive devices/ modifications for ADL. 3=Patient will improve strength/tolerance for activity to enable patient to perform ADL's. OT Education/Plan Discharge Recommendations Plan/Recommendations: Continue POC Treatment Plan/Plan of Care Patient would benefit from OT for education, treatment and training to promote independence in ADL's, mobility, safety and/or upper extremity function for ADL' s. Plan of Care: ADL Retraining, Functional Mobility, Group Exercise/Act as Ind Treatment Duration: Mar 26, 2018 Frequency: At least 5 of 7 days/Wk (IRF) Estimated Hrs Per Day: 1.5 hours per day Agreement: Yes Rehab Potential: Good Time/GCodes Start Time: 11:30 Stop Time: 12:00 Total Time Billed (hr/min): 30 Billed Treatment Time visit, 30 minutes exercise AVRIL CUEVA OT Mar 13, 2018 12:11
--- NOTE | 2018-03-13 12:51 | Physical Therapy Daily Note ---
PT Daily Note-Current Subjective Pt. agrees to Rx. States he hasnt had a BM since his surgery and is concerned about this and making it his "project" today. States he took a laxative and hope it will work today Pain Numeric Pain Scale: 0-No Pain Comment: states he only has minor insignificant pain in the incisions on his LEs onc Mental Status Patient Orientation: Normal For Age Transfers Functional [place] Measure 0=Not Assessed/NA 4=Minimal Assistance 1=Total Assistance 5=Supervision or Setup 2=Maximal Assistance 6=Modified [place] 3=Moderate Assistance 7=Complete IndependenceIRFPAI Quality Coding Scale 6 Independent with activity with or without an assistive device 5 Patient requires set up or clean up by helper. Patient completes activity by themselves 4 Supervision or touching assist (CGA). [place] provide cues , steadying assist 3 The helper provides less than half the effort to complete the activity 2 The helper provides more than half the effort to complete the activity 1 Dependent. The helper does all the effort to complete an activity 7 Patient refused to complete or attempt activity 9 The patient did not perform the activity before the current illness or injury 88 Not attempted due to Medical conditions or safety concerns Transfers (B, C, W/C) (FIM): 6 Scootin Rollin Supine to/from Sit: 6 Sit to/from Stand: 6 Bed to/from Chair: 6 Weight Bearing Right Lower Extremity: Right Weight Bearing/Tolerated Left Lower Extremity: Left Weight Bearing/Tolerated Gait Training Does the Patient Walk?: Yes Gait (FIM): 6 Distance (FIM): 3=150 ft (350x4) Gait Level of Assist: 6 Gait Persons Needed: 0 Gait Assistive Device: None Pt. ambulated multiple times with HEAT TREATER about unit and drank water while resting to stimulate BM. Pt. observed to be safe at all times and is up ad juanis at this PTAs advice. Stair Training Stair Training: Handrails/: No handrail, 1 handrail Stairs (FIM): 6 #of Steps: 12 Stairs: Pattern: Reciprocal Level of Assist: 6 Exercises Seated Therapy Exercises: Ankle pumps, Sit to stand, Long arc quads, Hip flexion, Hip abd/add Seated Reps: 15 Assessment Current Status: Good Progress PT Line Leader Goals Care Home Goals PT Line Leader Goals Time Frame: Mar 27, 2018 Transfers (B,C,W/C) (FIM): 7 Sit to Lying (QC): 6 Lying-Sitting on Side/Bed(QC): 6 Sit to Stand (QC): 6 Rollin Roll Left to Right (QC): 6 Chair/Ype-lf-Mjofr Xfer(QC): 6 Car Transfer (QC): 6 Does the Patient Walk: Yes Gait (FIM): 7 Gait distance (FIM): 3=150 ft Distance: >300' Walk 10 feet (QC): 6 Walk 10ft-Uneven Surface(QC): 6 Walk 50ft with 2 Turns (QC): 6 Walk 150 ft (QC): 6 Gait Level of Assist: 7 Gait Assistive Device: None Stairs (FIM): 7 # of Steps: 12 1 Step (curb) (QC): 6 4 Steps (QC): 6 12 Steps (QC): 6 Stairs Level Of Assist: 7 Picking up an Object (QC): 6 PT Plan Treatment/Plan Treatment Plan: Continue Plan of Care Treatment Plan: Bed Mobility, Education, Functional Activity Jorge, Functional Strength, Group Therapy, Gait, Safety, Therapeutic Exercise, Transfers Treatment Duration: Mar 27, 2018 Frequency: At least 5 of 7 days/Wk (IRF) Estimated Hrs Per Day: 1.5 hours per day Patient and/or Family Agrees t: Yes Safety Risks/Education Patient Education: Gait Training, Transfer Techniques, Steps, Correct Positioning, Disease Process, Safety Issues Teaching Recipient: Patient Teaching Methods: Demonstration, Discussion Response to Teaching: Verbalize Understanding, Return Demonstration, Reinforcement Needed Time/GCodes Time In: 945 Time Out: 1015 Total Billed Treatment Time: 30 Total Billed Treatment 1,GT20m,EX10m G Codes Necessary: MICHA Maurer HEAT TREATER Mar 13, 2018 12:51
--- NOTE | 2018-03-13 13:14 | Physical Therapy Daily Note ---
PT Daily Note-Current Subjective Pt. in bed and agrees to PT. He denies pain, says he is fatigued from this AM treatment. Mental Status Patient Orientation: Person, Place, Time, Situation Transfers Functional [place] Measure 0=Not Assessed/NA 4=Minimal Assistance 1=Total Assistance 5=Supervision or Setup 2=Maximal Assistance 6=Modified [place] 3=Moderate Assistance 7=Complete IndependenceIRFPAI Quality Coding Scale 6 Independent with activity with or without an assistive device 5 Patient requires set up or clean up by helper. Patient completes activity by themselves 4 Supervision or touching assist (CGA). [place] provide cues , steadying assist 3 The helper provides less than half the effort to complete the activity 2 The helper provides more than half the effort to complete the activity 1 Dependent. The helper does all the effort to complete an activity 7 Patient refused to complete or attempt activity 9 The patient did not perform the activity before the current illness or injury 88 Not attempted due to Medical conditions or safety concerns Transfers (B, C, W/C) (FIM): 5 Supine to/from Sit: 5 Sit to Stand (QC): 5 Weight Bearing Right Lower Extremity: Right Weight Bearing/Tolerated Left Lower Extremity: Left Weight Bearing/Tolerated Gait Training Does the Patient Walk?: Yes Gait (FIM): 2 Distance (FIM): 7=538-90 ft Distance: 2 x 125 ft Gait Level of Assist: 5 Gait Persons Needed: 1 Gait Assistive Device: None steady and appropriate gait speed Exercises Seated Therapy Exercises: Ankle pumps, Sit to stand (2 x 5 reps), Long arc quads, Hip flexion Seated Reps: 20 Treatments LE exercises, gait Assessment Current Status: Good Progress Pt. did well with seated exercise and gait, however he was fatigued during session. He scored 7-8/10 on 0-10 RPE scale during LE exercises, returned to 3- 4/10 with seated rest. Pt. remained seated at EOB post session, all needs met, call light in reach. PT Chcf Goals Database Administrator Goals PT Database Administrator Goals Time Frame: Mar 27, 2018 Transfers (B,C,W/C) (FIM): 7 Sit to Lying (QC): 6 Lying-Sitting on Side/Bed(QC): 6 Sit to Stand (QC): 6 Rollin Roll Left to Right (QC): 6 Chair/Mvv-ut-Aqfso Xfer(QC): 6 Car Transfer (QC): 6 Does the Patient Walk: Yes Gait (FIM): 7 Gait distance (FIM): 3=150 ft Distance: >300' Walk 10 feet (QC): 6 Walk 10ft-Uneven Surface(QC): 6 Walk 50ft with 2 Turns (QC): 6 Walk 150 ft (QC): 6 Gait Level of Assist: 7 Gait Assistive Device: None Stairs (FIM): 7 # of Steps: 12 1 Step (curb) (QC): 6 4 Steps (QC): 6 12 Steps (QC): 6 Stairs Level Of Assist: 7 Picking up an Object (QC): 6 PT Plan Treatment/Plan Treatment Plan: Continue Plan of Care Treatment Plan: Bed Mobility, Education, Functional Activity Jorge, Functional Strength, Group Therapy, Gait, Safety, Therapeutic Exercise, Transfers Treatment Duration: Mar 27, 2018 Frequency: At least 5 of 7 days/Wk (IRF) Estimated Hrs Per Day: 1.5 hours per day Patient and/or Family Agrees t: Yes Time/GCodes Time In: 1240 Time Out: 1303 Total Billed Treatment Time: 23 Total Billed Treatment 1, EX 15', GT 8' PITER ARAYA PT Mar 13, 2018 13:14
[2018-03-13 16:10] VITALS: BP 115/67
[2018-03-13] MEDS: POLYETHYLENE GLYCOL 17 GM (MIRALAX) PACK PO SCH (19:31)
[2018-03-13] MEDS: SIMvastatin 20 MG (ZOCOR) TAB PO SCH (20:23)
[2018-03-14] MEDS: metFORMIN XR 500 MG (GLUCOPHAGE XR) TAB PO SCH (05:41)
[2018-03-14 05:51] VITALS: BP 124/74
--- NOTE | 2018-03-14 08:24 | Cardiology Progress Note ---
Subjective Date Seen by Provider: Mar 14, 2018 Time Seen by Provider: 08:23 Subjective/Events-last exam Patient is feeling well, no chest pain or shortness of breath, asking about going home Review of Systems General: No Chills, No Night Sweats, No Fatigue, No Malaise, No Appetite, No Other HEENT: No Head Aches, No Visual Changes, No Eye Pain, No Ear Pain, No Dysphasia , No Sinus Congestion, No Post Nasal Drip, No Sore Throat, No Other Pulmonary: No Dyspnea, No Cough, No Pleuritic Chest Pain, No Other Cardiovascular: No: Chest Pain, Palpitations, Orthopnea, Paroxysmal Noc. Dyspnea, Edema, Lt Headedness, Other Objective-Cardiology Exam Last Set of Vital Signs Vital Signs 03/14/18 05:51 Temp 97.0 Pulse 65 Resp 20 B/P (MAP) 124/74 (91) Pulse Ox 97 O2 Delivery Room Air Capillary Refill : I&O Intake and Output 03/14/18 00:00 Intake Total 1680 ml Balance 1680 ml Intake Oral 1680 ml # Voids 7 # Bowel Movements 7 General: Alert, Oriented X3, Cooperative, No Acute Distress HEENT: Atraumatic, PERRLA, EOMI, Mucous Memb Moist/[place] Neck: Supple, No JVD Lungs: Clear to Auscultation Heart: Regular Rate Abdomen: Normal Bowel Sounds, Soft, No Tenderness, Other (c/o constipation) Extremities: No Edema Skin: Other (Sternotomy site Clean and dry) Neuro: Other (Strength $/5 grossly Cognition and sensation intact) Psych/Mental Status: Mental Status NL Results Lab Laboratory Tests Test 03/13/18 11:30 03/13/18 16:09 03/13/18 20:09 03/14/18 05:44 Range/Units Glucometer 160 H 91 158 H 139 H 70-110 MG/DL A/P-Cardiology Admission Diagnosis Coronary artery disease Hypertension Hyperlipidemia Diabetes mellitus Assessment/Plan Coronary artery disease, status post CABG [address] Mike Savage on March 05, 2018 using BEATTY to LAD, vein graft to diagonal artery, ramus intermedius, posterior lateral branch of the circumflex artery and vein graft to the right coronary artery, recovering well. Doing well. Continue to monitor Generalized weakness, loss of energy. Receiving physical therapy Hypertension, continue current meds and monitor Hyperlipidemia, monitor lipids Diabetes mellitus, followed and managed by primary care physician Tobaccoism, patient has stopped smoking after his surgery. Educated on smoking cessation Family history of heart disease Clinical Quality Measures DVT/VTE Risk/Contraindication: Risk Factor Score Per Nursin RFS Level Per Nursing on Admit: 4+=Very High SHIVA BOYLE MD Mar 14, 2018 08:24
[2018-03-14] MEDS: CLOPIDOGREL 75 MG (PLAVIX) TABLET PO SCH (09:01)
[2018-03-14] MEDS: SENNA W/DOCUSATE (SENOKOT S) TABLET PO SCH ×2 (09:01→20:14)
[2018-03-14] MEDS: meTOproloL SUCCINATE 50 MG (TOPROL XL) TAB PO SCH (09:01)
[2018-03-14] MEDS: lisINopril 20 MG (PRINIVIL) TABLET PO SCH (09:01)
[2018-03-14] MEDS: ASPIRIN E.C. 81 MG (ECOTRIN) TAB PO SCH (09:01)
[2018-03-14 15:34] VITALS: BP 105/66
[2018-03-14] MEDS: SIMvastatin 20 MG (ZOCOR) TAB PO SCH (20:14)
[2018-03-14] MEDS: POLYETHYLENE GLYCOL 17 GM (MIRALAX) PACK PO SCH ×2 (20:14→20:16)
[2018-03-15] MEDS: metFORMIN XR 500 MG (GLUCOPHAGE XR) TAB PO SCH (05:48)
[2018-03-15 05:49] VITALS: BP 114/69
--- NOTE | 2018-03-15 08:33 | Cardiology Progress Note ---
Subjective Date Seen by Provider: Mar 15, 2018 Time Seen by Provider: 08:30 Subjective/Events-last exam Patient is sitting up in chair, no new complaints. Asking to go home. Denies any chest pain or dyspnea. Objective-Cardiology Exam Last Set of Vital Signs Vital Signs 03/15/18 05:49 Temp 98.4 Pulse 69 Resp 18 B/P (MAP) 114/69 (84) Pulse Ox 96 O2 Delivery Room Air Capillary Refill : I&O Intake and Output 03/15/18 00:00 Intake Total 2292 ml Balance 2292 ml Intake Oral 2292 ml # Voids 8 General: Alert, Oriented X3, Cooperative, No Acute Distress HEENT: Atraumatic, PERRLA, EOMI, Mucous Memb Moist/[place] Neck: Supple, No JVD Lungs: Clear to Auscultation Heart: Regular Rate Abdomen: Normal Bowel Sounds, Soft, No Tenderness Extremities: No Edema Skin: Other (Sternotomy site Clean and dry) Neuro: Normal Gait, Normal Speech, Cranial Nerves 3-12 NL Psych/Mental Status: Mental Status NL, Mood NL A/P-Cardiology Admission Diagnosis Coronary artery disease Hypertension Hyperlipidemia Diabetes mellitus Assessment/Plan Coronary artery disease, status post CABG [address] Mike Savage on March 05, 2018 using BEATTY to LAD, vein graft to diagonal artery, ramus intermedius, posterior lateral branch of the circumflex artery and vein graft to the right coronary artery, recovering well. Doing well. Continue to monitor. I will d/c chest tube sutures, berna to leg to be removed 03/18/18. Generalized weakness, loss of energy. Receiving physical therapy Hypertension, continue current meds and monitor Hyperlipidemia, monitor lipids Diabetes mellitus, followed and managed by primary care physician Tobaccoism, patient has stopped smoking after his surgery. Educated on smoking cessation Family history of heart disease Clinical Quality Measures DVT/VTE Risk/Contraindication: Risk Factor Score Per Nursin RFS Level Per Nursing on Admit: 4+=Very High WILMAR SAINI Mar 15, 2018 08:33
--- NOTE | 2018-03-15 09:05 | Physical Therapy Daily Note ---
PT Daily Note-Current Subjective Patient reports he is ready to go home. Agrees to PT. Pain Numeric Pain Scale: 0-No Pain Location: No Pain Reported Mental Status Patient Orientation: Normal For Age Transfers Functional [place] Measure 0=Not Assessed/NA 4=Minimal Assistance 1=Total Assistance 5=Supervision or Setup 2=Maximal Assistance 6=Modified [place] 3=Moderate Assistance 7=Complete IndependenceIRFPAI Quality Coding Scale 6 Independent with activity with or without an assistive device 5 Patient requires set up or clean up by helper. Patient completes activity by themselves 4 Supervision or touching assist (CGA). [place] provide cues , steadying assist 3 The helper provides less than half the effort to complete the activity 2 The helper provides more than half the effort to complete the activity 1 Dependent. The helper does all the effort to complete an activity 7 Patient refused to complete or attempt activity 9 The patient did not perform the activity before the current illness or injury 88 Not attempted due to Medical conditions or safety concerns Transfers (B, C, W/C) (FIM): 7 Scootin Rollin Roll Left to Right (QC): 6 Supine to/from Sit: 7 Sit to/from Stand: 7 Sit to Lying (QC): 6 Sit to Stand (QC): 6 Chair/Mxi-am-Gdzyg Xfer(QC): 6 Bed to/from Chair: 7 Car Transfer (QC): 6 Weight Bearing Right Lower Extremity: Right Weight Bearing/Tolerated Left Lower Extremity: Left Weight Bearing/Tolerated Gait Training Does the Patient Walk?: Yes Gait (FIM): 7 Distance (FIM): 3=150 ft Distance: >1000' x 3 Walk 10 feet (QC): 6 Walk 50 ft with 2 Turns(QC): 6 Walk 150 ft (QC): 6 Walking 10ft/uneven surface-QC: 6 Gait Level of Assist: 7 Gait Assistive Device: None slow, steady, safe and functional Stair Training Stair Training: Handrails/: No handrail Stairs (FIM): 7 #of Steps: 24 1 Step (curb) (QC): 6 4 Steps (QC): 6 12 Steps (QC): 6 Stairs: Pattern: Reciprocal Level of Assist: 7 Balance Picking up an Object (QC): 6 Assessment Patient is currently at independent PLOF with all gross motor skills and is safe to return to home, from a PT standpoint. Patient has attained all functional goals. Upon admit, patient required SBA for safety due to deconditioned state. PT Adding Machine Mechanic Goals Adding Machine Mechanic Goals PT Jail Goals Time Frame: Mar 27, 2018 Transfers (B,C,W/C) (FIM): 7 (met 03/15/18) Sit to Lying (QC): 6 (met 03/15/18) Lying-Sitting on Side/Bed(QC): 6 (met 03/15/18) Sit to Stand (QC): 6 (met 03/15/18) Rollin (met03/15/18) Roll Left to Right (QC): 6 (met 03/15/18) Chair/Hlq-yd-Virqm Xfer(QC): 6 (met 03/15/18) Car Transfer (QC): 6 (met 03/15/18) Does the Patient Walk: Yes Gait (FIM): 7 (met 03/15/18) Gait distance (FIM): 3=150 ft Distance: >300' Walk 10 feet (QC): 6 (met 03/15/18) Walk 10ft-Uneven Surface(QC): 6 (met 03/15/18) Walk 50ft with 2 Turns (QC): 6 (met 03/15/18) Walk 150 ft (QC): 6 (met 03/15/18) Gait Level of Assist: 7 (met 03/15/18) Gait Assistive Device: None Stairs (FIM): 7 (met 03/15/18) # of Steps: 12 (met 03/15/18) 1 Step (curb) (QC): 6 (met 03/15/18) 4 Steps (QC): 6 (met 03/15/18) 12 Steps (QC): 6 (met 03/15/18) Stairs Level Of Assist: 7 (met 03/15/18) Picking up an Object (QC): 6 (met 03/15/18) PT Plan Treatment/Plan Treatment Plan: Continue Plan of Care, Discontinue PT, goals met Treatment Plan: Bed Mobility, Education, Functional Activity Jorge, Functional Strength, Group Therapy, Gait, Safety, Therapeutic Exercise, Transfers Treatment Duration: Mar 27, 2018 Frequency: At least 5 of 7 days/Wk (IRF) Estimated Hrs Per Day: 1.5 hours per day Patient and/or Family Agrees t: Yes Discharge Recommendations Therapy D/C Recommendations: Home Independently Time/GCodes Time In: 800 Time Out: 900 Total Billed Treatment Time: 60 Total Billed Treatment 1 visit FA x 2 60 min G Codes Necessary: CHAYITO Rich PT Mar 15, 2018 09:05
[2018-03-15] MEDS: CLOPIDOGREL 75 MG (PLAVIX) TABLET PO SCH (09:28)
[2018-03-15] MEDS: lisINopril 20 MG (PRINIVIL) TABLET PO SCH (09:28)
[2018-03-15] MEDS: meTOproloL SUCCINATE 50 MG (TOPROL XL) TAB PO SCH (09:29)
[2018-03-15] MEDS: ASPIRIN E.C. 81 MG (ECOTRIN) TAB PO SCH (09:29)
[2018-03-15] MEDS: SENNA W/DOCUSATE (SENOKOT S) TABLET PO SCH (09:37)
--- NOTE | 2018-03-15 09:43 | Cardiology Progress Note ---
Subjective Date Seen by Provider: Mar 15, 2018 Time Seen by Provider: 09:42 Subjective/Events-last exam Patient is in bed, feeling better, no new complaint Review of Systems General: No Chills, No Night Sweats, No Fatigue, No Malaise, No Appetite, No Other HEENT: No Head Aches, No Visual Changes, No Eye Pain, No Ear Pain, No Dysphasia , No Sinus Congestion, No Post Nasal Drip, No Sore Throat, No Other Pulmonary: Dyspnea; No Cough, No Pleuritic Chest Pain, No Other Cardiovascular: No: Chest Pain, Palpitations, Orthopnea, Paroxysmal Noc. Dyspnea, Edema, Lt Headedness, Other Objective-Cardiology Exam Last Set of Vital Signs Vital Signs 03/15/18 05:49 Temp 98.4 Pulse 69 Resp 18 B/P (MAP) 114/69 (84) Pulse Ox 96 O2 Delivery Room Air Capillary Refill : I&O Intake and Output 03/15/18 00:00 Intake Total 2292 ml Balance 2292 ml Intake Oral 2292 ml # Voids 8 General: Alert, Oriented X3, Cooperative, No Acute Distress HEENT: Atraumatic, PERRLA, EOMI, Mucous Memb Moist/[place] Neck: Supple, No JVD Lungs: Clear to Auscultation Heart: Regular Rate, Normal S1, Normal S2 Abdomen: Normal Bowel Sounds, Soft, No Tenderness Extremities: No Clubbing, No Cyanosis, No Edema Skin: Other (Sternotomy site Clean and dry) Neuro: Normal Gait, Normal Speech, Cranial Nerves 3-12 NL Psych/Mental Status: Mental Status NL, Mood NL Results Lab Laboratory Tests Test 03/14/18 11:30 03/14/18 15:32 03/14/18 20:13 03/15/18 05:09 Range/Units Glucometer 115 H 125 H 121 H 123 H 70-110 MG/DL A/P-Cardiology Admission Diagnosis Coronary artery disease Hypertension Hyperlipidemia Diabetes mellitus Assessment/Plan Coronary artery disease, status post CABG [address] Mike Savage on March 05, 2018 using BEATTY to LAD, vein graft to diagonal artery, ramus intermedius, posterior lateral branch of the circumflex artery and vein graft to the right coronary artery, recovering well. Doing well. Continue to monitor. I will d/c chest tube sutures, berna to leg to be removed 03/18/18. Generalized weakness, loss of energy. Receiving physical therapy Hypertension, continue current meds and monitor Hyperlipidemia, monitor lipids Diabetes mellitus, followed and managed by primary care physician Tobaccoism, patient has stopped smoking after his surgery. Educated on smoking cessation Family history of heart disease Clinical Quality Measures DVT/VTE Risk/Contraindication: Risk Factor Score Per Nursin RFS Level Per Nursing on Admit: 4+=Very High SHIVA BOYLE MD Mar 15, 2018 09:43
--- NOTE | 2018-03-15 11:25 | PM & R (SOAP) Progress Note ---
Subjective This was a face to face visit with the patient. Date Seen by Provider: Mar 15, 2018 Time Seen by Provider: 12:00 Subjective/Events-last exam Patient requesting discharge today Appreciate Therapy notes and Labs and CXR and DR Ivone Leung modified Independent to Independent Date Identified: Mar 15, 2018 Time Identified: 12:00 Medication Intervention: Discharge meds reviewed Objective Physician Exam Last Set of Vital Signs Vital Signs Date Time Temp Pulse Resp B/P (MAP) Pulse Ox O2 Delivery O2 Flow Rate FiO2 03/15/18 09:00 Room Air 03/15/18 05:49 98.4 69 18 114/69 (84) 96 Capillary Refill : I&O Intake and Output 03/15/18 00:00 Intake Total 2292 ml Balance 2292 ml Intake Oral 2292 ml # Voids 8 General: Alert, Oriented X3, Cooperative, No Acute Distress HEENT: Atraumatic, PERRLA, EOMI, Mucous Memb Moist/[place] Neck: Supple, No JVD Lungs: Clear to Auscultation Heart: Regular Rate, Normal S1, Normal S2 Abdomen: Normal Bowel Sounds, Soft, No Tenderness Extremities: No Clubbing, No Cyanosis, No Edema Skin: Other (Sternotomy site Clean and dry) Neuro: Normal Gait, Normal Speech, Cranial Nerves 3-12 NL Psych/Mental Status: Mental Status NL, Mood NL Results Lab Data Laboratory Tests 03/12/18 15:42: Glucometer 107 03/12/18 20:29: Glucometer 144H 03/13/18 05:08: Glucometer 113H 03/13/18 06:00: White Blood Count 14.6H, Red Blood Count 3.81L, Hemoglobin 11.8L, Hematocrit 35L , Mean Corpuscular Volume 91, Mean Corpuscular Hemoglobin 31, Mean Corpuscular Hemoglobin Concent 34, Red Cell Distribution Width 14.0, Platelet Count 356, Mean Platelet Volume 9.5, Sodium Level 137, Potassium Level 4.1, Chloride Level 108H, Carbon Dioxide Level 21, Anion Gap 8, Blood Urea Nitrogen 19H, Creatinine 0.76, Estimat Glomerular Filtration Rate > 60, BUN/Creatinine Ratio 25, Glucose Level 125H, Calcium Level 8.7, Corrected Calcium 9.2, Total Bilirubin 0.9, Aspartate Amino Transf (AST/SGOT) 14, Alanine Aminotransferase (ALT/SGPT) 22, Alkaline Phosphatase 71, Total Protein 6.0L, Albumin 3.4 03/13/18 11:30: Glucometer 160H 03/13/18 16:09: Glucometer 91 03/13/18 20:09: Glucometer 158H 03/14/18 05:44: Glucometer 139H 03/14/18 11:30: Glucometer 115H 03/14/18 15:32: Glucometer 125H 03/14/18 20:13: Glucometer 121H 03/15/18 05:09: Glucometer 123H Assessment/Plan Assessment and Plan Home today f/u with PCP and Cardiology See orders Co-Morbidities that are continuing to impact the rehab process: (include details ) NATALI DAVENPORT MD Mar 15, 2018 11:25
--- NOTE | 2018-03-15 11:31 | Individualized Plan of Care ---
Individualized Plan of Care Rehab Nursing IPOC Order Admission Date Mar 11, 2018 at 15:18 Current Orders Orders Admission Order(Inpt,Obs,Sdc) (03/11/18 14:23) Code/Resuscitation (03/11/18 14:23) Initiate Admission Nursing Pro .admission (03/11/18 14:23) Isolation Central Supply Req (03/11/18 14:23) Request Ot Evaluate & Treat (03/11/18 14:23) Pt Evaluate/Treat Request (03/11/18 14:23) Weight Bearing Status (03/11/18 14:23) Request For Cognitive Services (03/11/18 14:23) Clopidogrel Tablet (Plavix Tablet) (03/12/18 09:00) Hydrocodone/Apap 5/325 Tablet (Lortab 5 (03/11/18 14:30) Metoprolol Succinate (Xl) Tab (Toprol Xl (03/12/18 09:00) Aspirin Enteric Coated Tablet (Ecotrin T (03/12/18 09:00) Lisinopril Tablet (Zestril Tablet) (03/12/18 09:00) Simvastatin Tablet (Zocor Tablet) (03/11/18 21:00) Cho 60g/M 1snack (16-2000 Joseph) (03/11/18 Dinner) Staple/Suture Removal (03/11/18 14:23) Accucheck Achs ACHS (03/11/18 15:31) Metformin Xr Tablet (Glucophage Xr Table (03/12/18 07:00) Follow-Up Appointment (03/11/18 15:31) Patient Visit (03/11/18 ) Pt Eval Moderate Complexity (03/11/18 ) Edu Tobacco/Smoking Cessation .prn (03/11/18 15:53) Influenza Quad (5+Yoa) 2018- (Afluria (03/11/18 16:15) Ambulate 08,12,20 (03/11/18 16:06) Sequential Compression Device 08,20 (03/11/18 16:06) Dvt/Vte Risk - Notifiy Physici 08 (03/11/18 16:06) Ondansetron Oral Dissolve Tab (Zofran (03/11/18 20:30) Senna S Tablet (Senokot S Tablet) (03/11/18 21:00) Polyethylene Glycol Powder Pkt (Miralax (03/11/18 21:00) Consult Physician (03/11/18 20:18) Consult Physician (03/11/18 20:20) Cbc No Diff (03/13/18 05:00) Comprehensive Metabolic Panel (03/13/18 05:00) Patient Visit (03/12/18 ) Exercise Therap, Ea 15 Min (03/12/18 ) Functional Activities, Ea 15 (03/12/18 ) Gait Training, Ea 15 Min (03/12/18 ) Therapeutic, Group (03/12/18 ) Patient Visit (03/12/18 ) Speech Sound Lang Comp (03/12/18 ) Magnesium Citrate Oral Soln (Citrate Of (03/13/18 07:00) Gait Training, Ea 15 Min (03/13/18 ) Functional Activities, Ea 15 (03/13/18 ) Patient Visit (03/13/18 ) Patient Visit (03/13/18 ) Exercise Therap, Ea 15 Min (03/13/18 ) Gait Training, Ea 15 Min (03/13/18 ) Diabetes Education (03/13/18 17:35) Nursing Communication (Order) (03/13/18 18:54) Rehab Nursing Orders: Ongoing Assess. of Function Status, Disease Management & Educaiton, DVT Prophylaxis, Fall Prevention, Fluid/Electrolyte/Nutrition Mgmt, Infection Prevention, Medication Management & Education, Management of Risks & Complications, Management of Skin Intergrity, Nutrition Management, Pain Management, Patient/Family Support PT IPOC Problem List: Activity Tolerance, Functional Strength, Safety, Balance, Gait Treatment Plan: Continue Plan of Care Bed Mobility, Education, Functional Activity Jorge, Functional Strength, Group Therapy, Gait, Safety, Therapeutic Exercise, Transfers Treatment Duration: Mar 27, 2018 Frequency: At least 5 of 7 days/Wk (IRF) Estimated Hrs Per Day: 1.5 hours per day OT IPOC Problems: Decreased Activ Tolerance, Decreased UE Strength, Impaired I ADL's, Impaired Self-Care Skills OT Treatment, Training and Edu: Yes Plan of Care: ADL Retraining, Functional Mobility, Group Exercise/Act as Ind Treatment Duration: Mar 26, 2018 Frequency: At least 5 of 7 days/Wk (IRF) Estimated Hrs Per Day: 1.[address] IPOC Speech Therapy Treatment Plan: Discontinue ST Treatment Duration: Mar 15, 2018 Frequency: Modified Program (IRF) (0) Estimated Hrs Per Day: Other (0) Dietitian/Music Director Dietitian/Music Director to monitor nutritional status and make changes and/or recommendations as needed and work with speech pathology on dietary upgrades as the occur. 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 Medical Issues: DVT Prophylaxis, Fluid/Electrolyte/Nutrition Balance, Infection Protection, Other (List) (as per above) Brief Synthesis of Preadmission Screen, Post-Admission Evaluation, and Therapy Evaluations:62 yo male who lives alone who underwent cardiac procedure at OSH and referred here for ongoing care and therapies prior to discharge to home.PMH as per above.He is a patient of [facility] Medical Prognosis: Good Anticipated Length of Stay: 10-1-18 Modified Independent to Independent for adls and mobilty skills Anticipated d/c Destination: Home NATALI DAVENPORT MD Mar 15, 2018 11:31
[2018-03-15] MEDS ORDERED: METO-370 PO (11:37)
[2018-03-15] MEDS ORDERED: CLOP75TA28 PO (11:37)
--- NOTE | 2018-03-15 13:10 | Therapy Team Discharge Summary ---
Therapy Discharge Summary Discharge Recommendations Date of Discharge Therapy D/C Recommendations: Home Independently Physical Therapy Upon initial evaluation, patient required SBA for mobility for safety concerns. Patient has progressed with treatment plan and dismissing to home on this date at independent [facility] with all gross motor skills. Patient demonstrates Good balance on all terrains with ambulation. Performed a flight of stairs independently and voices no concern about returning to home. Goals were addressed and all attained. Occupational Therapy Decreased Activ Tolerance, Decreased UE Strength, Impaired I ADL's, Impaired Self-Care Skills PT Hydrographic Surveyor Goals Hydrographic Surveyor Goals PT Skilled Nursing Goals Time Frame: Mar 27, 2018 Transfers (B,C,W/C) (FIM): 7 (met 03/15/18) Roll Left to Right (QC): 6 (met 03/15/18) Sit to Lying (QC): 6 (met 03/15/18) Lying-Sitting on Side/Bed(QC): 6 (met 03/15/18) Sit to Stand (QC): 6 (met 03/15/18) Chair/Czc-qc-Mszeb Xfer(QC): 6 (met 03/15/18) Car Transfer (QC): 6 (met 03/15/18) Does the Patient Walk: Yes Gait (FIM): 7 (met 03/15/18) Gait distance (FIM): 3=150 ft Distance: >300' Walk 10 feet (QC): 6 (met 03/15/18) Walk 10ft-Uneven Surface(QC): 6 (met 03/15/18) Walk 50ft with 2 Turns (QC): 6 (met 03/15/18) Walk 150 ft (QC): 6 (met 03/15/18) Gait Level of Assist: 7 (met 03/15/18) Gait Assistive Device: None Stairs (FIM): 7 (met 03/15/18) # of Steps: 12 (met 03/15/18) 1 Step (curb) (QC): 6 (met 03/15/18) 4 Steps (QC): 6 (met 03/15/18) 12 Steps (QC): 6 (met 03/15/18) Stairs Level Of Assist: 7 (met 03/15/18) Picking up an Object (QC): 6 (met 03/15/18) OT Hydrographic Surveyor Goals Skilled Nursing Goals Time Frame: Mar 26, 2018 Eating (FIM): 7 Eating (QC): 6 Oral Hygiene (QC): 6 Grooming(FIM): 6 Bathing(FIM): 6 Shower/Bathe Self (QC): 6 Upper Body Dressing(FIM): 6 Upper Body Dressing (QC): 6 Lower Body Dressing(FIM): 6 Lower Body Dressing (QC): 6 On/Off Footwear (QC): 6 Toileting(FIM): 6 Toileting Hygiene (QC): 6 Transfers (B,C,W/C) (FIM): 6 Toilet/Commode Transfer(FIM): 6 Toilet/Commode Transfer (QC): 6 Shower Transfer(FIM): 6 Additional Goals: 1-Demonstrate ADL Tasks, 2-Verbalize Understanding, 3- ImproveStrength/Jorge 1=Demonstrate adherence to instructed precautions during ADL tasks. 2=Patient will verbalize/demonstrate understanding of assistive devices/ modifications for ADL. 3=Patient will improve strength/tolerance for activity to enable patient to perform ADL's. Speech Skilled Nursing Goals Hydrographic Surveyor Goals no goals established as skilled ST not indicated. CHAYITO OHARA PT Mar 15, 2018 13:10
[2018-03-15 13:43] VITALS: BP 114/69
--- NOTE | 2018-03-15 14:17 | Occupational Ther Daily Note ---
OT Current Status-Daily Note Subjective Pt. reports no pain. States that he feels ready to discharge. Appearance Pt. up in chair. Mental Status/Objective Patient Orientation: Person, Place, Time, Situation Functional [place] Measure 0=Not Assessed/NA 4=Minimal Assistance 1=Total Assistance 5=Supervision or Setup 2=Maximal Assistance 6=Modified [place] 3=Moderate Assistance 7=Complete [place] ADL-Treatment Functional [place] Measure 0=Not Assessed/NA 4=Minimal Assistance 1=Total Assistance 5=Supervision or Setup 2=Maximal Assistance 6=Modified [place] 3=Moderate Assistance 7=Complete IndependenceIRFPAI Quality Coding Scale 6 Independent with activity with or without an assistive device 5 Patient requires set up or clean up by helper. Patient completes activity by themselves 4 Supervision or touching assist (CGA). [place] provide cues , steadying assist 3 The helper provides less than half the effort to complete the activity 2 The helper provides more than half the effort to complete the activity 1 Dependent. The helper does all the effort to complete an activity 7 Patient refused to complete or attempt activity 9 The patient did not perform the activity before the current illness or injury 88 Not attempted due to Medical conditions or safety concerns Grooming (FIM): 7 Oral Hygiene (QC): 6 Bathing (FIM): 7 Shower/Bathe Self (QC): 6 Upper Body (FIM): 7 Upper Body Dressing (QC): 6 Lower Body Dressing (FIM): 7 Lower Body Dressing (QC): 6 On/Off Footwear (QC): 6 Toileting (FIM): 7 Toileting Hygiene (QC): 6 Transfers (B, C, W/C) (FIM): 7 Toilet/Commode Transfer (FIM): 7 Toilet Transfer (QC): 6 Shower Transfer(FIM): 7 Other Treatment Pt. showered and dressed this date with no assistive device, and no assistance needed. Pt. fully independent. Pt. and OT do talk about any particular needs for home, or questions that he might have. Pt. is concerned about when he can return to driving. Pt. is encouraged to talk with his surgeon regarding healing and when it will be safe to drive again. Pt. verbalizes understanding. marriage and family social worker comes to room to discuss things with pt. marriage and family social worker made aware of OT and pt's conversation. All needs met in room. Pt. discharging today to home. Education OT Patient Education: Correct positioning, Modified ADL techniques, Progress toward Goal/Update tx plan, Purpose of tx/functional activities, Reviewed precautions, Rehab process, Transfer techniques Teaching Recipient: Patient Teaching Methods: Demonstration, Discussion Response to Teaching: Verbalize Understanding, Return Demonstration OT Short Term Goals Short Term Goals 1=Demonstrate adherence to instructed precautions during ADL tasks. 2=Patient will verbalize/demonstrate understanding of assistive devices/ modifications for ADL. 3=Patient will improve strength/tolerance for activity to enable patient to perform ADL's. OT Fpc Goals Fpc Goals Time Frame: Mar 26, 2018 Eating (FIM): 7 (met) Eating (QC): 6 (met) Groomin (met) Oral Hygiene (QC): 6 (met) Bathing(FIM): 6 (met) Shower/Bathe Self (QC): 6 (met) Upper Body Dressing(FIM): 6 (met) Upper Body Dressing (QC): 6 (met) Lower Body Dressing(FIM): 6 (met) Lower Body Dressing (QC): 6 (met) On/Off Footwear (QC): 6 (met) Toileting(FIM): 6 (met) Toileting Hygiene (QC): 6 (met) Transfers (B,C,W/C) (FIM): 6 (met) Toilet/Commode Transfer(FIM): 6 (met) Toilet/Commode Transfer (QC): 6 (met) Shower Transfer(FIM): 6 (met) Additional Goals: 1-Demonstrate ADL Tasks, 2-Verbalize Understanding, 3- ImproveStrength/Jorge 1=Demonstrate adherence to instructed precautions during ADL tasks. 2=Patient will verbalize/demonstrate understanding of assistive devices/ modifications for ADL. 3=Patient will improve strength/tolerance for activity to enable patient to perform ADL's. OT Education/Plan Problem List/Assessment Assessment: No Skilled OT Needs ID'd Discharge Recommendations Plan/Recommendations: Discharge/Goals Met Therapy D/C Recommendations: Home Independently Treatment Plan/Plan of Care Treatment,Training & Education: Yes Plan of Care: ADL Retraining, Functional Mobility, Group Exercise/Act as Ind Treatment Duration: Mar 15, 2018 Frequency: At least 5 of 7 days/Wk (IRF) Estimated Hrs Per Day: 1.5 hours per day Agreement: Yes Rehab Potential: Good Time/GCodes Start Time: 11:05 Stop Time: 11:45 Total Time Billed (hr/min): 40 Billed Treatment Time 1, ADL x 3 FRANCINE SILVA OT Mar 15, 2018 14:16
--- NOTE | 2018-03-15 14:18 | Therapy Team Discharge Summary ---
Therapy Discharge Summary Discharge Recommendations Date of Discharge Mar 15, 2018 at 12:40 Therapy D/C Recommendations: Home Independently Occupational Therapy Pt. was seen by occupational therapy to increase overall strength and independence. Pt. met all goals. Pt. has demonstrated ability to fully be able to shower and dress self with independence and no need for adaptive equipment. Pt. discharging home with no follow up OT indicated at this time. No equipment needs at this time. No Skilled OT Needs ID'd PT House Moving Supervisor Goals House Moving Supervisor Goals PT Snf Goals Time Frame: Mar 27, 2018 Transfers (B,C,W/C) (FIM): 7 (met 03/15/18) Roll Left to Right (QC): 6 (met 03/15/18) Sit to Lying (QC): 6 (met 03/15/18) Lying-Sitting on Side/Bed(QC): 6 (met 03/15/18) Sit to Stand (QC): 6 (met 03/15/18) Chair/Kdl-bc-Wjdhn Xfer(QC): 6 (met 03/15/18) Car Transfer (QC): 6 (met 03/15/18) Does the Patient Walk: Yes Gait (FIM): 7 (met 03/15/18) Gait distance (FIM): 3=150 ft Distance: >300' Walk 10 feet (QC): 6 (met 03/15/18) Walk 10ft-Uneven Surface(QC): 6 (met 03/15/18) Walk 50ft with 2 Turns (QC): 6 (met 03/15/18) Walk 150 ft (QC): 6 (met 03/15/18) Gait Level of Assist: 7 (met 03/15/18) Gait Assistive Device: None Stairs (FIM): 7 (met 03/15/18) # of Steps: 12 (met 03/15/18) 1 Step (curb) (QC): 6 (met 03/15/18) 4 Steps (QC): 6 (met 03/15/18) 12 Steps (QC): 6 (met 03/15/18) Stairs Level Of Assist: 7 (met 03/15/18) Picking up an Object (QC): 6 (met 03/15/18) OT House Moving Supervisor Goals Snf Goals Time Frame: Mar 26, 2018 Eating (FIM): 7 (met) Eating (QC): 6 (met) Oral Hygiene (QC): 6 (met) Grooming(FIM): 6 (met) Bathing(FIM): 6 (met) Shower/Bathe Self (QC): 6 (met) Upper Body Dressing(FIM): 6 (met) Upper Body Dressing (QC): 6 (met) Lower Body Dressing(FIM): 6 (met) Lower Body Dressing (QC): 6 (met) On/Off Footwear (QC): 6 (met) Toileting(FIM): 6 (met) Toileting Hygiene (QC): 6 (met) Transfers (B,C,W/C) (FIM): 6 (met) Toilet/Commode Transfer(FIM): 6 (met) Toilet/Commode Transfer (QC): 6 (met) Shower Transfer(FIM): 6 (met) Additional Goals: 1-Demonstrate ADL Tasks, 2-Verbalize Understanding, 3- ImproveStrength/Jorge 1=Demonstrate adherence to instructed precautions during ADL tasks. 2=Patient will verbalize/demonstrate understanding of assistive devices/ modifications for ADL. 3=Patient will improve strength/tolerance for activity to enable patient to perform ADL's. Speech House Moving Supervisor Goals Snf Goals no goals established as skilled ST not indicated. FRANCINE SILVA OT Mar 15, 2018 14:18
== END 2018-03-15 12:40 | disposition home or self-care (01) | DRG 950 ==
PROVIDERS: ADMIT Physical Medicine & Rehabilitation; ATTEND Physical Medicine & Rehabilitation
DX: Z48.812 Encounter for surgical aftercare following surgery on the circulatory system (principal); Z95.1 Presence of aortocoronary bypass graft; I25.119 Atherosclerotic heart disease of native coronary artery with unspecified angina pectoris; E11.9 Type 2 diabetes mellitus without complications; F17.210 Nicotine dependence, cigarettes, uncomplicated; E78.5 Hyperlipidemia, unspecified; Z79.84 Long term (current) use of oral hypoglycemic drugs; Z82.49 Family history of ischemic heart disease and other diseases of the circulatory system
CPT/HCPCS: 36415; 80053; 82962; 85027

== ENCOUNTER 2018-10-06 05:30 | Observation (INO) | payer OTHER ==
[2018-10-06] VITALS (11 sets, daily range): BP systolic 127–160; BP diastolic 68–99
[~2018-10-06] VITALS: Ht 185.4 cm; Wt 108.9 kg
[~2018-10-06 05:30] MED LIST changes: -AMLO5TAB7 PO; +AMLO5TAB9 PO; +CLOP75TA28 PO; +METO-370 PO
[2018-10-06] MEDS ORDERED: ASPIRIN 81 MG CHEW (CHILDREN'S ASA) PO ONE (05:45)
[2018-10-06 05:56] LABS: BASOPHILS % (AUTO) 0 % (0-10); EOSINOPHILS # (AUTO) 0.1 10^3/uL (0.0-0.3); EOSINOPHILS % (AUTO) 1 % (0-10); HEMATOCRIT 44 % (40-54); HEMOGLOBIN 14.8 G/DL (13.3-17.7); LYMPHOCYTES # (AUTO) 2.8 X 10^3 (1.0-4.0); LYMPHOCYTES % (AUTO) 28 % (12-44); MEAN CORPUSCULAR HEMOGLOBIN 30 PG (25-34); MEAN CORPUSCULAR HGB CONC 33 G/DL (32-36); MEAN CORPUSCULAR VOLUME 88 FL (80-99); MEAN PLATELET VOLUME 9.8 FL (7.4-10.4); MONOCYTES # (AUTO) 0.8 X 10^3 (0.0-1.0); MONOCYTES % (AUTO) 8 % (0-12); NEUTROPHILS # (AUTO) 6.3 X 10^3 (1.8-7.8); NEUTROPHILS % (AUTO) 63 % (42-75); PLATELET COUNT 258 10^3/uL (130-400); RED CELL DISTRIBUTION WIDTH 14.1 % (10.0-14.5)
--- NOTE | 2018-10-06 06:00 | ED General ---
General Stated Complaint: LEFT ARM NUMB,LIGHT HEADED,DIZZY,WEAK Source of Information: Patient (ALEX PARISH DO) History of Present Illness Date Seen by Provider: Oct 06, 2018 Time Seen by Provider: 05:40 Initial Comments PT ARRIVES VIA POV FROM WORK STATES HE WOKE UP AT 0300 TODAY TO GO TO WORK, AND SHORTLY AFTER HE WOKE UP, HE BEGAN TO HAVE SOME LEFT ARM NUMBNESS, SOME DIZZINESS ( NOT SPINNING SENSATION ) , GENERALIZED WEAKNESS NO PROBLEMS USING HIS ARM NO CHEST PAIN NO SHORTNESS OF BREATH NO PALPITATIONS NO NAUSEA/VOMITING + SWEATS WITH ARM NUMBNESS PT STATES SYMPTOMS WENT AWAY WHEN HE SAT DOWN AND RESTED WENT ON TO WORK, AND SHORTLY AFTER HE WAS AT WORK, THE SYMPTOMS RETURNED, SO HE DROVE HIMSELF HERE SYMPTOMS ARE BETTER NOW, AT REST PT HAD 5 VESSEL CABG 02/2018 PT DID NOT HAVE TYPICAL CHEST PAIN PRIOR TO CABG, AND WAS UNAWARE IF HE HAD AN [place]--STATES "THEY TOLD ME I MIGHT HAVE HAD 1 OR 2" BUT PT WAS UNAWARE OF WHEN HE HAD THEM PT IS DIABETIC, NEVER CHECKS BLOOD SUGAR PCP: DR. MARCIAL ELEMENTARY INSTRUCTIONAL COACH: DR. BOYLE (ALEX PARISH DO) Allergies and Home Medications Allergies Coded Allergies: No Known Drug Allergies (Unverified , 07/04/14) Home Medications Aspirin 81 Mg Tablet.dr, 81 MG PO DAILY, (Reported) Clopidogrel Bisulfate 75 Mg Tablet, 75 MG PO DAILY Prescribed by: NATALI DAVENPORT on 03/15/18 1137 Lisinopril 20 Mg Tablet, 20 MG PO DAILY, (Reported) Metformin HCl 750 Mg Tab.er.24h, 750 MG PO DAILY, (Reported) Metoprolol Succinate 50 Mg Tab.er.24h, 50 MG PO DAILY Prescribed by: NATALI DAVENPORT on 03/15/18 1137 Simvastatin 20 Mg Tablet, 20 MG PO HS, (Reported) Patient Home Medication List Home Medication List Reviewed: Yes (MELVINA SMITH MD) Review of Systems Review of Systems Constitutional: see HPI, diaphoresis, dizziness EENTM: no symptoms reported Respiratory: no symptoms reported; No short of breath, No wheezing Cardiovascular: no symptoms reported; No chest pain, No edema, No palpitations , No syncope; vascular heart diseas Gastrointestinal: no symptoms reported; No nausea Genitourinary: no symptoms reported Musculoskeletal: no symptoms reported Skin: no symptoms reported Psychiatric/Neurological: Denies Headache; Numbness; Denies Weakness Hematologic/Lymphatic: No Symptoms Reported Immunological/Allergic: no symptoms reported (ALEX PARISH DO) Past Ioxgmyo-Gjytso-Fixfdh Hx Patient Social History Alcohol Use: Denies Use Recreational Drug Use: No Smoking Status: Former Smoker Type Used: Cigarettes Former Smoker, Quit: Feb 23, 2018 Recent Foreign Travel: No Contact w/Someone Who Travel: No Recent Hopitalizations: Yes (cabg) (ALEX PARISH DO) Seasonal Allergies Seasonal Allergies: No (ALEX PARISH DO) Past Medical History Surgeries: Yes (CARDIAC CATH; 5 VESSEL CABG 02/2018) Cardiac, CABG Respiratory: No Currently Using CPAP: No Currently Using BIPAP: No Cardiac: Yes Coronary Artery Disease, High Cholesterol, Hypertension Neurological: No Genitourinary: No Gastrointestinal: No Musculoskeletal: No Endocrine: Yes Diabetes, Non-Insulin dep HEENT: Yes (RINGING IN EARS) Cancer: No Psychosocial: No Integumentary: No Blood Disorders: No Adverse Reaction/Blood Tranf: No (ALEX PARISH DO) Family Medical History Cardiovascular disease G8 BROTHER FH: liver disease G8 SISTER FH: pancreatic cancer 19 FATHER 19 MOTHER Pancreatic Physical Exam Vital Signs Vital Signs - First Documented (MELVINA SMITH MD) Vital Signs Capillary Refill : (ALEX PARISH DO) Height, Weight, BMI Height: 6'1.00" Weight: 212lbs. 5.0oz. 96.263562eq; 28.0 BMI Method:Stated General Appearance: No Apparent Distress, WD/WN Neck: Normal Inspection Respiratory: Normal Breath Sounds, No Accessory Muscle Use, No Respiratory Distress Cardiovascular: Regular Rate, Rhythm, No Edema, No JVD, No Murmur, Normal Peripheral Pulses Gastrointestinal: Soft Back: Normal Inspection Extremity: Normal Inspection, Normal Range of Motion, Non Tender, No Calf Tenderness, No Pedal Edema Neurologic/Psychiatric: Alert, Oriented x3, No Motor/Sensory Deficits, Normal Mood/Affect, stock replenisher II-XII Norm as Tested Skin: Normal Color, Warm/Dry (ALEX PARISH DO) Progress/Results/Core Measures Suspected Sepsis SIRS Temperature: Pulse: Respiratory Rate: Laboratory Tests 10/06/18 05:43: Blood Pressure / Mean: Laboratory Tests 10/06/18 05:43: (ALEX PARISH DO) Results/Orders Lab Results Laboratory Tests Test 10/06/18 05:43 10/06/18 05:56 Range/Units White Blood Count 10.0 4.3-11.0 10^3/uL Red Blood Count 5.02 4.35-5.85 10^6/uL Hemoglobin 14.8 13.3-17.7 G/DL Hematocrit 44 40-54 % Mean Corpuscular Volume 88 80-99 FL Mean Corpuscular Hemoglobin 30 25-34 PG Mean Corpuscular Hemoglobin Concent 33 32-36 G/DL Red Cell Distribution Width 14.1 10.0-14.5 % Platelet Count 258 130-400 10^3/uL Mean Platelet Volume 9.8 7.4-10.4 FL Neutrophils (%) (Auto) 63 42-75 % Lymphocytes (%) (Auto) 28 12-44 % Monocytes (%) (Auto) 8 0-12 % Eosinophils (%) (Auto) 1 0-10 % Basophils (%) (Auto) 0 0-10 % Neutrophils # (Auto) 6.3 1.8-7.8 X 10^3 Lymphocytes # (Auto) 2.8 1.0-4.0 X 10^3 Monocytes # (Auto) 0.8 0.0-1.0 X 10^3 Eosinophils # (Auto) 0.1 0.0-0.3 10^3/uL Basophils # (Auto) 0.0 0.0-0.1 10^3/uL Prothrombin Time 12.8 12.2-14.7 SEC INR Comment 0.9 0.8-1.4 Activated Partial Thromboplast Time 31 24-35 SEC Sodium Level 142 135-145 MMOL/L Potassium Level 4.3 3.6-5.0 MMOL/L Chloride Level 111 H 98-107 MMOL/L Carbon Dioxide Level 21 21-32 MMOL/L Anion Gap 10 5-14 MMOL/L Blood Urea Nitrogen 13 7-18 MG/DL Creatinine 0.94 0.60-1.30 MG/DL Estimat Glomerular Filtration Rate > 60 BUN/Creatinine Ratio 14 Glucose Level 114 H 70-105 MG/DL Calcium Level 9.7 8.5-10.1 MG/DL Corrected Calcium 8.5-10.1 MG/DL Magnesium Level 2.3 1.8-2.4 MG/DL Total Bilirubin 1.3 H 0.1-1.0 MG/DL Aspartate Amino Transf (AST/SGOT) 19 5-34 U/L Alanine Aminotransferase (ALT/SGPT) 28 0-55 U/L Alkaline Phosphatase 63 40-136 U/L Total Creatine Kinase 141 30-200 U/L Creatine Kinase MB 2.1 <6.6 NG/ML Myoglobin 50.9 10.0-92.0 NG/ML Troponin I < 0.028 <0.028 NG/ML B-Type Natriuretic Peptide 31.4 <100.0 PG/ML Total Protein 7.5 6.4-8.2 GM/DL Albumin 4.6 H 3.2-4.5 GM/DL Amylase Level 97 25-125 U/L Lipase 87 H 8-78 U/L Glucometer 110 70-110 MG/DL (MELVINA SMITH MD) Medications Given in ED Current Medications Medications Dose Ordered Sig/Deana Route Start Time Stop Time Status Last Admin Dose Admin Aspirin 324 mg ONCE ONCE PO 10/06/18 05:45 10/06/18 05:46 DC 10/06/18 05:49 324 MG (MELVINA SMITH MD) Vital Signs/I&O 10/06/18 10/06/18 05:30 05:30 Temp 98.4 Pulse 62 Resp 20 B/P (MAP) 138/113 (121) Pulse Ox 96 96 O2 Delivery Room Air Room Air (MELVINA SMITH MD) Vital Signs/I&O Capillary Refill : (ALEX PARISH DO) Progress Note : Progress Note ACCUCHECK 110 ON ARRIVAL 0600--CARE TURNED OVER TO DR. SMITH. ALL STUDIES PENDING (ALEX PARISH DO) ECG Initial ECG Impression Date: Oct 06, 2018 Initial ECG Impression Time: 05:37 Initial ECG Rhythm: Normal Sinus Initial ECG Impression: Nonspecific Changes (INCOMPLETE RBBB) Initial ECG Comparisson: Changed (FROM 2014) (ALEX PARISH DO) Departure Communication (Admissions) Time/Spoke to Admitting Phy: 07:[address] Patrick who will admit. Dr. Varner who is on-call for [place]. (MELVINA SMITH MD) Impression Primary Impression: Paresthesia Additional Impression: Angina pectoris Disposition: ADMITTED INPATIENT Condition: Stable Admissions Decision to Admit Reason: Admit from ER (General) Decision to Admit/Date: Oct 06, 2018 Time/Decision to Admit Time: 07:25 (MELVINA SMITH MD) Departure-Patient Inst. Referrals: ZULEYKA MARCIAL MD (PCP/Family) Primary Care Physician ALEX PARISH DO Oct 06, 2018 05:59 MELVINA SMITH MD Oct 06, 2018 07:30
[2018-10-06 06:08] LABS: INR 0.9 (0.8-1.4); PROTHROMBIN TIME PATIENT 12.8 SEC (12.2-14.7)
[2018-10-06 06:15] LABS: ALANINE AMINOTRANSFERASE 28 U/L (0-55); ALBUMIN 4.6 GM/DL (3.2-4.5); ALKALINE PHOSPHATASE 63 U/L (40-136); AMYLASE 97 U/L (25-125); BILIRUBIN,TOTAL 1.3 MG/DL (0.1-1.0); BUN/CREATININE RATIO 14; CALCIUM 9.7 MG/DL (8.5-10.1); CARBON DIOXIDE 21 MMOL/L (21-32); CHLORIDE 111 MMOL/L (98-107); CREATINE KINASE 141 U/L (30-200); CREATININE SERUM 0.94 MG/DL (0.60-1.30); GFR ESTIMATED > 60; GLUCOSE 114 MG/DL (70-105); LIPASE 87 U/L (8-78); MAGNESIUM 2.3 MG/DL (1.8-2.4); POTASSIUM 4.3 MMOL/L (3.6-5.0); SODIUM 142 MMOL/L (135-145); TOTAL PROTEIN 7.5 GM/DL (6.4-8.2)
[2018-10-06 06:23] LABS: CREATINE KINASE MB 2.1 NG/ML (<6.6)
--- NOTE | 2018-10-06 08:01 | Consultation-Cardiology ---
HPI-Cardiology Cardiology Consultation Date of Consultation 10/06/18 Date of Admission Home Medications & Allergies Allergies: Coded Allergies: No Known Drug Allergies (Unverified , 07/04/14) KPI-Qrzmfv-Jauvor Hx Patient Social History Alcohol Use: Denies Use Recreational Drug Use: No Smoking Status: Former Smoker Type Used: Cigarettes Recent Foreign Travel: No Recent Infectious Disease Expo: No Recent Hopitalizations: Yes (cabg) Family Medical History Family History: Cardiovascular disease G8 BROTHER FH: liver disease G8 SISTER FH: pancreatic cancer 19 FATHER 19 MOTHER Pancreatic Physical Exam Vital Signs Vital Signs - First Documented Capillary Refill : Less Than 3 Seconds Height, Weight, BMI Height: 6'1.00" Weight: 240lbs. 5.0oz. 109.131944xv; 28.0 BMI Method:Stated SHIVA BOYLE MD Oct 06, 2018 08:00
--- NOTE | 2018-10-06 08:08 | Diagnostic Imaging Report ---
PROCEDURE: CT head wo r/o stroke. TECHNIQUE: Multiple contiguous axial images were obtained through the brain without the use of intravenous contrast. Auto Exposure Controls were utilized during the CT exam to meet ALARA standards for radiation dose reduction. INDICATION: Left arm numbness. Correlation is made with prior head CT from 07/04/2014. Ventricles and sulci are within normal limits. No sulcal effacement, midline shift or hemorrhage is detected. Cisterns are patent. There is opacification bilateral maxillary sinuses as well as the left half of the frontal sinus. Impression: 1. No acute intracranial process detected. 2. Frontal and maxillary sinusitis. Dictated by: Dictated on workstation # [id number]
--- NOTE | 2018-10-06 08:20 | Diagnostic Imaging Report ---
INDICATION: Left arm numbness. Comparison is made with prior examination from 03/03/2018. FINDINGS: Heart size is normal. Mediastinum is unremarkable. There has been previous median sternotomy and coronary artery bypass graft. There is some minimal bibasilar interstitial scarring. There is no no pleural effusion or pneumothorax. IMPRESSION: No acute cardiopulmonary abnormality. Dictated by: Dictated on workstation # [id number]
[2018-10-06] MEDS ORDERED: CATHETER FLUSH 10 ML SYR IV PRN (08:30)
--- NOTE | 2018-10-06 10:46 | History & Physical-Hospitalist ---
History of Present Illness HPI/Chief Complaint Chief Compliant: Left arm paresthesia with anginal type of symptoms HPI: This is a 63yoWM with known coronary artery disease managed by Dr. Domingo s /p bypass surgery fall of last year who presented with vague chest pain that started yesterday that came and went but then he woke up this morning and walked his dog and it occurred again and resolved and then the left arm paresthesia occurred when he was at work that prompted the ER visit. Due to the suspension for anginal symptoms he was placed NPO he will obtain cardiac stress test by Dr. Domingo and we have restarted most of his home medication except for medication that could compromise kidney function during cardiac Cath if that is indeed required. Source: patient Exam Limitations: no limitations Date Seen 10/06/18 Time Seen by a Provider: 10:30 Attending Physician Deepti Bunch DO PCP Jorge Kramer MD Referring Physician Date of Admission Oct 06, 2018 at 07:34 Home Medications & Allergies Home Medications Reviewed patient Home Medication Reconciliation performed by pharmacy medication reconciliations golf technician and/or nursing. Patients Allergies have been reviewed. Allergies Allergies Coded Allergies No Known Drug Allergies (Unverified07/04/14) Past Bfoxpod-Coidpe-Vbmxgh Hx Past Med/Social Hx: Reviewed Nursing Past Med/Soc Hx, Reviewed and Corrections made Patient Social History Marrital Status: single Employed/Student: employed (?) Alcohol Use: Denies Use Recreational Drug Use: No Smoking Status: Former Smoker (quit 03/02) Former Smoker, Quit: Feb 23, 2018 Type Used: Cigarettes Recent Foreign Travel: No Contact w/other who traveled: No Recent Hopitalizations: Yes (cabg) Recent Infectious Disease Expo: No Immunizations Up To Date Pediatric: No Seasonal Allergies Seasonal Allergies: No Past Medical History Surgeries: Cardiac, CABG (04/01) Currently Using CPAP: No Currently Using BIPAP: No Cardiac: Coronary Artery Disease, High Cholesterol, Hypertension Endocrine: Diabetes, Non-Insulin dep History of Blood Disorders: No Adverse Reaction to Blood Elise: No Family History Cardiovascular disease G8 BROTHER FH: liver disease G8 SISTER FH: pancreatic cancer 19 FATHER 19 MOTHER Pancreatic Review of Systems Constitutional: see HPI EENTM: no symptoms reported Respiratory: no symptoms reported Cardiovascular: chest pain Gastrointestinal: no symptoms reported Genitourinary: no symptoms reported Musculoskeletal: no symptoms reported Skin: no symptoms reported Psychiatric/Neurological: Paresthesia All Other Systems Reviewed Negative Unless Noted: Yes Physical Exam Physical Exam Vital Signs Vital Signs - First Documented Capillary Refill : Less Than 3 Seconds Height, Weight, BMI Height: 6'1.00" Weight: 240lbs. 0.0oz. 108.033327rq; 31.7 BMI Method:Stated General Appearance: No Apparent Distress, WD/WN, Chronically ill Eyes: Right Eye Normal Inspection, Right Eye PERRL HEENT: PERRL/EOMI, Normal ENT Inspection, Pharynx Normal, Moist Mucous Membranes Neck: Full Range of Motion, Normal Inspection, Non Tender Respiratory: Chest Non Tender, Lungs Clear, Normal Breath Sounds, No Accessory Muscle Use, No Respiratory Distress Cardiovascular: Regular Rate, Rhythm, No Edema, No Gallop, No JVD, No Murmur, Normal Peripheral Pulses Gastrointestinal: Normal Bowel Sounds, No Organomegaly, No Pulsatile Mass, Non Tender, Soft Back: Normal Inspection, No CVA Tenderness, No Vertebral Tenderness Extremity: Normal Capillary Refill, Normal Inspection, Normal Range of Motion, Non Tender, No Calf Tenderness, No Pedal Edema Neurologic/Psychiatric: Alert, Oriented x3, No Motor/Sensory Deficits, Normal Mood/Affect Skin: Normal Color, Warm/Dry Lymphatic: No Adenopathy Results Results/Procedures Labs Laboratory Tests 10/06/18 05:43 Patient resulted labs reviewed. Assessment/Plan Admission Diagnosis Assessment: Angina CAD h/o CABG 04/01 HTN HLP DM Former smoker Plan: EST Cardiology is appreciated Admission Status: Observation Diagnosis/Problems Diagnosis/Problems (1) Angina pectoris Status: Acute (2) Diabetes mellitus Status: Chronic Qualifiers: Diabetes mellitus type: type 2 Diabetes mellitus longwall headgate operator insulin use: without custodial use Diabetes mellitus complication status: without complication Qualified Codes: E11.9 - Type 2 diabetes mellitus without complications (3) Former smoker Status: Chronic (4) Paresthesia Status: Acute (5) POST CABG Status: Chronic (6) HLP Status: Chronic (7) HTN (hypertension) Status: Chronic Qualifiers: Hypertension type: essential hypertension Qualified Codes: I10 - Essential (primary) hypertension Clinical Quality Measures DVT/VTE Risk/Contraindication: Risk Factor Score Per Nursin RFS Level Per Nursing on Admit: 2=Moderate DEEPTI BUNCH DO Oct 06, 2018 10:46
[2018-10-06] MEDS ORDERED: ROSU10TA27 PO (11:06)
[2018-10-06] MEDS ORDERED: METO-370 PO (11:06)
--- NOTE | 2018-10-06 11:07 | NUR ---
SPOKE WITH THE PATIENT ABOUT HIS MEDICATIONS. HE HAD A LIST WITH HIM AND WE WENT OVER THAT WELL I CALLED [facility] FOR A LIST OF RECENTLY FILLED MEDICATIONS. THERE HAVE BEEN A FEW CHANGES SINCE HE HAS UPDATED HIS PERSONAL MED LIST BUT HE WAS ABLE TO VERBALLY VERIFY THEM WITH ME. [facility] FILLED: 10-04-18 CRESTOR 10MG HS 10-04-18 METOPROLOL SUCCINATE 50MG DAILY (HIS LIST STATED 25 BUT HE VERIFIED IT HAS BEEN INCREASED TO 50MG) 08-06-18 METFORMIN ER 750MG BID 3 MONTH SUPPLY (HIS LIST STATES ONCE DAILY BUT HE VERIFIED HE TAKES IT BID NOW) 06-03-18 LISINOPRIL 20MG DAILY #90 (HE STATES HE HAS A SUPPLY OF THIS ON HAND AT HOME FROM WHERE THEY FILLED IT TOO EARLY IN THE PAST, HE STATES HE DOES NOT MISS A DOSE AND HE DOES NOT CUT IT IN HALF) HE TAKES ASPIRIN 81MG DAILY OTC. HE STATES HE IS NO LONGER TAKING PLAVIX, IT WAS LAST FILLED AT [facility] ON 03-16-18 #30
--- NOTE | 2018-10-06 11:46 | Consultation-Cardiology ---
HPI-Cardiology Cardiology Consultation Date of Consultation 10/06/18 Date of Admission Time Seen by Provider: 10:30 Indication: Chest pain HPI Patient is a 63 y/o male with history of CAD, s/p CABG x 5 in Feb 2018. Presented to the ER with complaining of left arm numbness and diaphoresis upon awakening this morning. Currently denies any numbness, denies any chest pain, palpitations. Complaining of some intermittent lightheadedness. Denies any syncopal episodes. 63 years old gentleman with history of coronary artery disease, recent CABG done in February 2018, presented with left arm numbness and diaphoresis, not having active chest pain. On my evaluation was feeling better. Had some dizziness and lightheadedness. Home Medications & Allergies Allergies: Coded Allergies: No Known Drug Allergies (Unverified , 07/04/14) Home Medication List Reviewed: Yes WKX-Wasjcd-Vewjgw Hx Patient Social History Employed/Student: employed Alcohol Use: Denies Use Recreational Drug Use: No Smoking Status: Former Smoker Type Used: Cigarettes Recent Foreign Travel: No Recent Infectious Disease Expo: No Recent Hopitalizations: Yes (cabg) Past Medical History CAD, HTN, HLP Family Medical History Significant Family History: CAD Over 55 Years Old Family History: Cardiovascular disease G8 BROTHER FH: liver disease G8 SISTER FH: pancreatic cancer 19 FATHER 19 MOTHER Pancreatic Review of Systems Constitutional: No chills, No diaphoresis; dizziness; No fever, No malaise, No weakness EENTM: No blurred vision, No double vision, No vision loss, No epistaxis Respiratory: cough, dyspnea on exertion Cardiovascular: chest pain Gastrointestinal: No RUQ, No abdominal pain, No constipation Genitourinary: No dysuria Musculoskeletal: No back pain Skin: No dryness, No lesions Psychiatric/Neurological: Denies Anxiety, Denies Depressed Reviewed Test Results Reviewed Test Results Lab Laboratory Tests 10/06/18 05:43: White Blood Count 10.0, Red Blood Count 5.02, Hemoglobin 14.8, Hematocrit 44, Mean Corpuscular Volume 88, Mean Corpuscular Hemoglobin 30, Mean Corpuscular Hemoglobin Concent 33, Red Cell Distribution Width 14.1, Platelet Count 258, Mean Platelet Volume 9.8, Neutrophils (%) (Auto) 63, Lymphocytes (%) (Auto) 28, Monocytes (%) (Auto) 8, Eosinophils (%) (Auto) 1, Basophils (%) (Auto) 0, Neutrophils # (Auto) 6.3, Lymphocytes # (Auto) 2.8, Monocytes # (Auto) 0.8, Eosinophils # (Auto) 0.1, Basophils # (Auto) 0.0, Prothrombin Time 12.8, INR Comment 0.9, Activated Partial Thromboplast Time 31, Sodium Level 142, Potassium Level 4.3, Chloride Level 111H, Carbon Dioxide Level 21, Anion Gap 10 , Blood Urea Nitrogen 13, Creatinine 0.94, Estimat Glomerular Filtration Rate > 60, BUN/Creatinine Ratio 14, Glucose Level 114H, Calcium Level 9.7, Corrected Calcium , Magnesium Level 2.3, Total Bilirubin 1.3H, Aspartate Amino Transf (AST /SGOT) 19, Alanine Aminotransferase (ALT/SGPT) 28, Alkaline Phosphatase 63, Total Creatine Kinase 141, Creatine Kinase MB 2.1, Myoglobin 50.9, Troponin I < 0.028, B-Type Natriuretic Peptide 31.4, Total Protein 7.5, Albumin 4.6H, Amylase Level 97, Lipase 87H 10/06/18 05:56: Glucometer 110 ECG Impression ECG Initial ECG Rhythm: Normal Sinus Physical Exam Vital Signs Vital Signs - First Documented Capillary Refill : Less Than 3 Seconds Height, Weight, BMI Height: 6'1.00" Weight: 240lbs. 0.0oz. 108.941991el; 31.7 BMI Method:Stated General Appearance: No Apparent Distress, WD/WN HEENT: PERRL/EOMI, Normal ENT Inspection Neck: Full Range of Motion, Normal Inspection, Non Tender, Supple Respiratory: Chest Non Tender, Lungs Clear, Normal Breath Sounds, No Accessory Muscle Use, No Respiratory Distress Cardiovascular: Regular Rate, Rhythm, No Edema, No Gallop, No JVD, No Murmur, Normal Peripheral Pulses Gastrointestinal: No Pulsatile Mass, Non Tender, Soft Rectal: Deferred Back: No CVA Tenderness Extremity: Non Tender, No Calf Tenderness Neurologic/Psychiatric: Alert, Oriented x3, harvesting supervisor II-XII Norm as Tested Skin: Normal Color, Warm/Dry Lymphatic: No Adenopathy A/P-Cardiology Admission Diagnosis CP CAD HTN HLP Assessment/Plan Chest pain nonspecific etiology, atypical in presentation, presenting with left arm numbness and diaphoresis. EKG reveals no acute ST changes, cardiac enzymes negative. Planning for EST later this afternoon. Coronary artery disease, underwent cardiac catheterization in February 2018 which showed severe multivessel coronary artery disease transferred to [facility] [place], had CABG [address] Savage using vein graft to the diagonal, ramus , posterior lateral branch of the circumflex and right coronary artery, BEATTY to LAD. Continue to monitor Dizziness and lightheadedness, Continue to monitor Hypertension, restart home blood pressure medications and continue to monitor. Hyperlipidemia, lipid profile was done on April 21, 2018 showing total cholesterol 204, triglyceride 120, HDL 46, LDL 135. Started on Crestor 10 mg daily, continue to monitor. Tobaccoism, stopped smoking in February 2018, encouraged to continue with smoking cessation Diabetes mellitus, followed and managed by primary care physician Family history of heart disease Thank you for allowing us to participate in the management of Mr. Howard. This is Nicol Mckeon PA-C, as a scribe for Dr. Friedman. Patient was seen and evaluated with Nicol, I examined the patient and interviewed him, agree with the current scribed note. On examination lungs were clear to auscultation bilateral, heart is regular rate and rhythm. Patient has been having atypical chest pain, no EKG changes. Chronic enzymes were negative. I proceeded with exercise Myoview stress test which showed no sig ischemia or infarction, typical male pattern, had history of coronary artery disease, hypertension hyperlipidemia. I will continue with medical therapy at this time, follow-up as an outpatient. Continue to monitor as an outpatient and arrange for follow-up next week. Agree with the current scribed note. May few minor modification using Italic font Clinical Quality Measures DVT/VTE Risk/Contraindication: Risk Factor Score Per Nursin RFS Level Per Nursing on Admit: 2=Moderate NICOL SAINI Oct 06, 2018 11:46 SHIVA FRIEDMAN MD Oct 06, 2018 16:26
--- NOTE | 2018-10-06 13:23 | NUR ---
1310 Patient transported down to [facility] via wheelchair with staff member for Stress test. VSS, in no apparent distress.
[2018-10-06] MEDS ORDERED: CATHETER FLUSH 10 ML SYR IV SCH (14:00)
--- NOTE | 2018-10-06 15:17 | NUR ---
1510 Back from stress test in Nuclear Medicine. VSS, in no apparent distress.
[2018-10-06] MEDS ORDERED: ASPIRIN E.C. 81 MG (ECOTRIN) TAB PO SCH (21:00)
[2018-10-06] MEDS ORDERED: meTOproloL SUCCINATE 50 MG (TOPROL XL) TAB PO SCH (21:00)
--- NOTE | 2018-10-07 02:36 | STRESS TEST ---
DATE OF SERVICE: 10/06/2018 EXERCISE MYOVIEW STRESS TEST REFERRING PHYSICIAN: Dr. Jorge Kramer. INDICATION: Chest pain. Baseline heart rate is 71, baseline blood pressure 136/76. Baseline EKG is sinus rhythm with no ischemic changes. In summary, the patient was injected with 10.45 mCi of technetium-99 Myoview and the resting images were obtained. Then, the patient started exercising with a baseline heart rate, blood pressure and EKG mentioned above. The patient was able to exercise for 7 minutes and 30 seconds on standard Jacques protocol. With peak exercise level, EKG was showing minimal nondiagnostic changes. Blood pressure was 217/91. During recovery, heart rate and blood pressure returned to baseline. EKG returned to baseline, the patient was injected a stress dose of 32.4 mCi of technetium-99 Myoview. The resting and stress images were reviewed and compared in the short axis, horizontal long axis and vertical long axis views. Review of the images showed diaphragmatic attenuation with typical male pattern with no significant ischemia or infarction. SSS is 0, TID value 1.01. On the gated images, the left ventricle appeared to be normal size with normal contractility. Calculated ejection fraction 50%. CONCLUSION: 1. Good exercise tolerance, a total of 7 minutes 30 seconds on standard Jacques protocol, total of 8.8 METS achieving 86% of maximum expected heart rate. 2. Appropriate heart rate response to exercise with hypertensive response to exercise, returned to baseline during recovery. 3. Minimal nondiagnostic EKG changes with exercise returned to baseline during recovery. 4. Diaphragmatic attenuation with no ischemia or infarction on SPECT images. 5. Normal left ventricular size with normal contractility. Calculated ejection fraction 50%. Job ID: [id number] DocumentID: [id number] Dictated Date: 10/06/2018 20:49:47 [employer] Date: 10/07/2018 02:36:40 Dictated By: SHIVA BOYLE MD
--- NOTE | 2018-10-08 13:19 | Physician Query-Final Dx ---
LOKESH GREEN 10/08/18 1319: Final Diagnosis Give Final Diagnosis Please give Final Diagnosis TERRI BUNCH DO 10/08/188: Final Diagnosis Give Final Diagnosis Chest pain not due to angina. LOKESH GREEN Oct 08, 2018 13:19 TERRI BUNCH DO Oct 08, 2018 19:58
== END 2018-10-06 16:10 | disposition home or self-care (01) ==
LOC: EDUNIT# 05:30 → ER 05:33 → UNDOADMOB 07:34 → ICU 07:34
PROVIDERS: ADMIT Internal Medicine; ATTEND Internal Medicine
DX: R20.2 Paresthesia of skin (principal); R07.89 Other chest pain; R42 Dizziness and giddiness; I25.10 Atherosclerotic heart disease of native coronary artery without angina pectoris; I10 Essential (primary) hypertension; E78.5 Hyperlipidemia, unspecified; E11.9 Type 2 diabetes mellitus without complications; Z95.1 Presence of aortocoronary bypass graft; Z79.82 Long term (current) use of aspirin; Z79.84 Long term (current) use of oral hypoglycemic drugs; Z79.899 Other long term (current) drug therapy; Z87.891 Personal history of nicotine dependence; Z82.49 Family history of ischemic heart disease and other diseases of the circulatory system
CPT/HCPCS: 36415; 70450; 71045; 78452; 80053; 82150; 82550; 82553; 82962; 83690; 83735; 83874; 83880; 84484; 85025; 85610; 85730; 87081; 93005; 93017; 93041; 93306